=== PATIENT | female | born 1985 | race Caucasian/White ===

== ENCOUNTER 2024-06-07 22:47 | Outpatient (REF) | payer MEDICAID, SELFPAY ==
[2024-06-07 21:42] LABS: Hemoglobin A1C 5.3 % (<5.7)
[2024-06-07 21:53] LABS: ALT 27 U/L (14-59); AST 17 U/L (15-37); Albumin 3.9 g/dL (3.4-5.0); Alkaline Phosphatase 93 U/L (46-116); Anion Gap 12.6 mmol/L (3-11); BUN 9 mg/dL (7-18); Bilirubin, Total 0.57 mg/dL (0.2-1.0); CO2 23.4 mmol/L (21.0-32.0); CREATININE 0.9 mg/dL (0.55-1.02); Calcium 9.3 mg/dL (8.5-10.1); Calculated LDL 155 mg/dL (<100); Chloride 104 mmol/L (98-107); Cholesterol 227 mg/dL (<200); Glucose 82 mg/dL (74-106); HDL Cholesterol 43 mg/dL (40-60); Potassium 3.7 mmol/L (3.5-5.1); Sodium 140 mmol/L (136-145); Total Protein 7.3 g/dL (6.4-8.2); Triglyceride 146 mg/dL (<150)
--- OUTSIDE RECORDS SUMMARY | 2024-06-07 22:49 | XMS_ITS | Encounter Summary ---
Author [place] [address] Care Team Providers Care Community Organization Director Name Role Phone None Primary Care Provider Unavailabl e Encounter Details Date Type Department Care Team (Late st Contact Info) Description 07/16/2011 Orders Only Radiology and Cardiology Results [address] [place] [id number] Apd Conversion, Results Provider, Social History Tobacco Use Types Packs/Day Years Used Date Smoking Tobacco: Never Assessed Sex and Gender Information Value Date Recorded Sex Assigned at Not on file Gender Identity Not on file Sexual Orientation Not on file documented as of this encounter Plan of Treatment Not on file documented as of this encounter Procedures Procedure Name Priority Date/Time Associated Diagnosis Comments HEMOGLOBIN A1C Routine 07/16/2011 1:49 PM EDT documented in this encounter Results * (ABNORMAL) Hemoglobin A1c (07/16/2011 1:49 PM EDT) Hemoglobin A1c 4.9([facility]) 4.5 - 5.7 % TANESHA CONKLIN DAY CONVERSION Hemoglobin 18.1(Exter nal Lab) g/dL TANESHA CONKLIN DAY CONVERSION 07/16/2011 1:49 PM EDT Results Provider Apd Conversion MD ADALID CAMARGO ORDERABLES TANESHA CONKLIN DAY CONVERSION documented in this encounter Visit Diagnoses Not on filedocumented in this encounter Care Teams Community Organization Director Relationship Specialty Start Date End Date None None PCP - General 02/02/18 10/11/19 documented as of this encounter
--- OUTSIDE RECORDS SUMMARY | 2024-06-07 22:49 | XMS_ITS | Encounter Summary ---
[facility] [place] [address] Care Team Providers Care Claims Counsel Name Role Phone Oscar Garduno MD Primary Care Provider [phone] Reason for Visit * Reason Comments Laboring * Auth/Cert Specialty Diagnoses / Procedures Referred By Contac t Referred To Contact Diagnoses Encounter for trial of labor Procedures EMERGENCY IPI Referral ID Status Reason Start Date Expiration Date Visits Re quested Visits Authorized [id number] 1 1 Encounter Details Date Type Department Care Team (Late st Contact Info) Description 08/27/2018 [place] [id number] Katlyn Jose MD [facility] OBSTETRICS & [place] [address] Not Performed @ DELIVERY (WRVU 16.13) Social History Tobacco Use Types Packs/Day Years Used Date Smoking Tobacco: Former Cigarettes 0.5 5 2 007 - 2011 Smokeless Tobacco: Never Alcohol Use Standard Drinks/Week Comments No 0 (1 standard drink = 0.6 oz pur e alcohol) Sex and Gender Information Value Date Recorded Sex Assigned at Not on file Gender Identity Not on file Sexual Orientation Not on file documented as of this encounter Last Filed Vital Signs Vital Sign Reading Time Taken Comments Blood Pressure 123/68 08/29/2018 8:49 AM EST Pulse 79 08/29/2018 8:49 AM EST Temperature 36.9 ??C (98.4 ??F) 08/29/2018 8:48 AM ES T Respiratory Rate 18 08/28/2018 7:28 PM EST Oxygen Saturation 98% 08/29/2018 8:48 AM EST Inhaled Oxygen Concentration - - Weight 109.3 kg (241 lb) 08/27/2018 4:23 AM EDT Height 161.3 cm (5' 3.5) 08/27/2018 4:23 AM EDT Body Mass Index 42.02 08/27/2018 4:23 AM EDT documented in this encounter Discharge Summaries * Rosemarie Chopra MD - 08/29/2018 7:23 AM EST Discharge Summary Patient Name: Emily CavanaughvonnieKarime Patient Age: 32 y.o. Language: Italian Race: White Ethnicity: Not nor Admit date: 08/27/2018 Discharge date and time: 08/29/2018 Attending Physician: Jacob Quintero MD Discharge Physician: Shasha Davenport MD Care Provider: [facility]: Thierry Goncalves Referring Hospital: N/A Follow-up Recommendations for Providers: Interval Tubal request- needs pre-op appointment placed and request for tubal operation 6 weeks PP Inpatient Provider Contact Information: [facility] TECH Department, Discharge Diagnoses (Hospital Problems) and Secondary Diagnoses (Chronic Problems) Active Hospital Problems Diagnosis ??? Encounter for trial of labor Resolved Hospital Problems No resolved problems to display. Active Non-Hospital Problems Diagnosis ??? Positive GBS test ? Desires tubal ligation ??? Weight loss in ??? H/O section complicating ??? Morbid obesity with BMI of 40.0-44.9, adult ??? Encounter for supervision of normal in third trimester ??? Chronic pelvic pain in female Operations/Major Procedures: Spontaneous Vaginal Delivery on 08/27 Indication for Admission: Spontaneous onset of labor Admission History Emily states that she has had contractions every 3 minutes regularly all day today. She states that she started having contractions about two days ago and was seen in triage on 08/25 for rule out SROM. She had elevated Bps on 08/25 and had PIH labs drawn, all of which were normal. Her contractions decreased and she was discharged. Today, she notes no vaginal bleeding, no LOF, and endorses normal movements. She does note increased rectal pressure. ?? Her has been complicated by: ?? TOLAC, history of section X2: 1st for Failure to progress during IOL, got to 1 cm before decelerations were present. Second CS for adhesion on right aspect of uterus, planned CS. She underwent counseling and signed consent. ?? 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 History of Ectopic with ?? Morbid Obesity, Body mass index is 42.02 kg/m??. ?? Requests Tubal Consent- Medicaid consent signed, would like tubal if CS ?? GBS status: Positive, hives with PCN/Augmentin as a child, no sensitivities performed. ? Hospital Course Including Delivery and Events Emily BowiejyothivonnieVidyahi is a 32 y.o. year old woman at 40w2d weeks gestational age who presented in spontaneous labor with nothing for analgesia. Her is complicated by TOLAC with2 previous LTCS, one for failure to progress with intolerance of labor and the second for elective reasons, pelvic adhesions, history of ectopic with removal of one tube, GBS positive, morbid obesity. ?? She was found to be complete at 0648 with the presenting part at +2 station. She pushed for 7 minutes and spontaneously delivered at 0655 hrs. The 's head was delivered in a controlled fashion.There was no nuchal cord. The body was delivered without incident over an intact perineum. A viablemale infant was placed on maternal abdomen and had APGARS of 7 and 8 at 1 and 5 minutes with measurements still pending. The cord was clamped in 2 places and transected. Cord blood was taken. The fundus became firm with massage and pitocin. The placenta delivered spontaneously after 7 minutes and it was a 3-vessel cord. Inspection of the vagina and perineum revealed a bilateral labial lacerations, with repair of right laceration with 4-0 vicryl. Left labial laceration was superficial and hemostatic. A second degree right vaginal laceration which was repaired with 3-0 vicryl suture. Her course was uneventful. By the time of discharge on post day number 2, her pain was well controlled with oral pain medications, she was tolerating a regular diet, ambulating, andvoiding without difficulty. Her fundal exam was as expected and her lochia was within normal limits. She is establishing and will be followed up in the clinic in 4-5 weeks for her /pre-operative visit, and 6 weeks for her tubal ligation. She is planning on using bilateral tubal ligation for contraception. Delivery Information Information for the patient's : Lesa, Carissa shell [[id number]] INFORMATION Carissa Mcfadden 08/27/2018 6:55 AM by Vaginal, Spontaneous Delivery Sex: male Gestational Age: 40w2d Measurements: Weight: 6 lb 8.6 oz (2965 g) APGARS One Minute Five Minutes Ten Minutes Totals: 7 8 EBL: 400 Vital signs at Discharge: BP: 121/79, Heart Rate: 73, Temp: 37 ??C (98.6 ??F), Resp: 18, BMI (Calculated): 42.02 Height: 161.3 cm (5' 3.5) (08/27/18422) Weight: 109.3 kg (241 lb) (08/27/18422) Functional and Cognitive status: intact Important Studies and Lab Data: Labs: Last wbc, hgb, hct plt Recent Labs 08/27/18 0500 WBC 20.8* HGB 12.3 HCT 36.3 Recent Results (from the past 72 hour(s)) Hemogram Result Value Ref Range WBC 20.8 (H) 4.0 - 9.5 x10(3)/mcL RBC 4.89 4.00 - 5.21 x10(6)/mcL Hemoglobin 12.3 11.7 - 15.5 gm/dL Hematocrit 36.3 35.7 - 45.8 % MCV 74.2 (L) 82.6 - 94.4 fL MCH 25.2 (L) 27.1 - 32.0 pg MCHC 33.9 31.7 - 35.0 gm/dL Platelets 305 145 - 357 x10(3)/mcL RDWSD 38.3 37.0 - 46.0 fL RDWCV 14.5 (H) 11.5 - 14.1 % MPV 8.5 7.6 - 12.9 fL nRBC % Auto 0.0 % nRBC Abs Auto 0.000 0.000 - 0.000 x10(3)/mcL Differential, Automated Result Value Ref Range Neutrophils % 85.4 % Neutr Abs (ANC) 17.77 (H) 1.70 - 6.10 x10(3)/mcL Lymphocytes % 10.3 % Lymphocytes Abs 2.1 0.9 - 3.2 x10(3)/mcL Monocytes % 3.1 % Monocyte Abs 0.6 0.3 - 0.9 x10(3)/mcL Eosinophils % 0.0 % Eosinophils Abs 0.0 0.0 - 0.4 x10(3)/mcL Basophils % 0.3 % Basophils Abs 0.1 0.0 - 0.1 x10(3)/mcL Immature Gran % 0.90 % Arianne Gran Abs 0.19 (H) 0.00 - 0.04 x10(3)/mcL Studies: none Pending Studies and Lab Data: - placental pathology Discharge Conditions/Prognosis: good Discharge to: Home Contraceptive Plans: bilateral tubal ligation Allergies at Discharge: Allergies Allergen Reactions ??? Augmentin [Amoxicillin-Pot Clavulanate] Hives As a 4 year old Immunizations Given this Hospitalization: Immunization History Administered Date(s) Administered ??? Influenza Vaccine PF, Quadrivalent 07/25/2018 ??? Tdap Vaccine 06/30/2018 Discharge Medications: Your Medications New Medications Dose Details docusate sodium 50 mg Cap Commonly known as: COLACE Take 1 capsule by mouth 2 times daily as needed for Constipation. 50 mg Quantity: 10 capsule Refills: 0 ibuprofen 200 mg Tab Commonly known as: ADVIL;MOTRIN Take 3 tablets by mouth every 6 hours as needed for Pain. 600 mg Quantity: 30 tablet Refills: 0 polyethylene glycol 17 gram Pwpk Commonly known as: MIRALAX Take 17 g by mouth daily as needed. 17 g Quantity: 14 each Refills: 0 Continued medications, unchanged Dose Details acetaminophen 325 mg Tab Commonly known as: TYLENOL Take 650 mg by mouth every 4 hours as needed. 650 mg Refills: 0 calcium-vitamin D3 600 mg calcium- 400 unit Tab Take 1 tablet by mouth daily. 1 tablet Quantity: 90 tablet Refills: 3 CALTRATE 600 ORAL Take 1 tablet by mouth daily. 1 tablet Refills: 0 vitamin with [id number]-Er-Dipd-FA Tab Commonly known as: VITAMIN Take 1 tablet by mouth daily. 1 tablet Quantity: 90 tablet Refills: 3 Smoking Status at Discharge: Social History Tobacco Use Smoking Status Former Smoker ??? Packs/day: 0.50 ??? Years: 5.00 ??? Pack years: 2.50 ??? Last attempt to quit: 2011 ??? Years since quittin.8 Smokeless Tobacco Never Used Instructions Given to Patient at Discharge: Patient Instructions Patient Instructions Follow-up: Six weeks care provider. If you were seen at [facility] you will be contacted to set up an appointment Activity: Nothing in vagina until bleeding stops Do not lift more than 15 pounds No driving for two weeks if you are taking narcotic medication. Please call your OB provider for the following: Fever more than 100.5 degrees Heavy bleeding that saturates a pad an hour Increased abdominal pain, nausea , shaking chills Increased pain in the area of stitches outside your vagina. Hot, hard, tender areas on the breast and feeling generally unwell. Depression Contact Numbers: If you see an commissary superintendent call: [phone] 9 am - 5 pm, after 5 pm If you see a stationary fireman call: [phone] all hours If you see a family practitioner call: [phone] all hours If you were transferred to our institution for delivery and cannot reach your local OB provider, call the commissary superintendent numbers. Pain Control: Alternate 625 mg tylenol and 600 mg ibuprofen every 3 hours for pain control. General Instructions None Future Appointments and Orders Future Appointments and Orders Future Appointments Provider Department Dept Phone 08/29/2018 1:20 PM Zaynab Arndt CNM Obstetrics and Gynecology at [place] Arrive at: [facility] [phone] Future Orders Complete By Expires LAPAROSCOPY W\FULGURATION OF FALLOPIAN TUBES [[id number] Custom] As directed Process Instructions: Scheduling Instructions: This order is to be used for Surgeries and Procedures being performed at [facility] Main OR, OSC,CSI, Endoscopy, [facility] or [facility], the [facility], [facility] and [facility] only. For Surgeries and Procedures being performed at other locations and non- Surgical facilities, please use an order with an ID# that begins with EXT. Questions: Pre-procedure Diagnosis: Desires sterilization Case Classification: G = Elective Post-op Location: Home Surgeon requested Anesthesia Type for surgery: General Surgeon requested regional for postop pain control: Pre-admission testing needed?: Special Needs? (Comments box above, or paper, for details): Clinical Trial?: Special Anesthesia intubation requests: Discharge References/Attachments None Click refresh button immediately prior to signing DCS to ensure all mills are updated. documented in this encounter Discharge Instructions * Discharge Instructions* Fatimah Guillen RN - 08/29/2018 10:39 AM EST Images from the original note were not included. Nurse Inpatient Note - Vaginal Delivery Follow-ups: ? will be scheduled with your primary OB provider ? please call to schedule with your primary OB provider Maternal Discharge Instructions Rest: Although it may seem impossible to get enough rest, simple planning will help. Plan to rest, and/or sleep when your baby does. Limiting visitors also helps. Other family members can help by doing housework, caring for other children and/or helping limit visitors. Activity: Exercise can be gradually increased following your delivery, depending on the doctor???s recommendation. It is recommended that you do not swim until the vaginal bleeding stops or perform any heavy lifting for six weeks. ???Aim to stay active for 20-30 minutes a day. When you first start exercising after childbirth, try simple exercises that help strengthen major muscle groups, including abdominal and backmuscles. Gradually add moderate- intensity exercise. Remember, even 10 minutes of exercise benefits your body. If you exercised vigorously before or you are a brine plant operator, you can work up to vigorous-intensity activity. Stop exercising if you feel pain.?? https://www.[facility].org/Patients/FAQs/Bemldbvz-Qmvug-Fxlhemgxw?IsMobileSet=false#ho w Nutrition: Your diet following the of your baby is as important as it was before the baby wasborn. Drinking a minimum of 6-8 glasses of water a day will help keep you hydrated. Continue takingyour vitamins until you are no longer . Do not attempt to lose weight during the first six weeks. Sweating. Hormonal changes following delivery frequently cause night sweats which are normal over the next 6 weeks. Sleeping on towels and using a fan may make you more comfortable. Lochia: (Flow) Your flow should be no heavier than a normal period. It will be bright red and then transition to pink, brown, yellow, and finally colorless. This may last a few weeks. If your vaginalbleeding becomes bright red again, decrease your activity. We recommend pelvic rest until your bleeding and spotting stops and your episiotomy or vaginal tearhas healed. This may take up to six weeks. Pelvic rest includes activities such as douching, use oftampons/menstrual cups or sexual intercourse. Perineum: For about a week continue to rinse yourself with warm water when you use the toilet. A sitz bath with Epsom salt taken 2 times a day and use of witch meghan may help relieve soreness. Kegel exercise, done regularly throughout the day, will help tighten the perineal muscles and speed recovery. If you received any stitches, these will dissolve on their own and do not need to be removed. If you had a 3rd degree or 4th degree vaginal laceration continue taking stool softeners as recommended by the doctor. Urinary leakage which continues and/or loss of bowel control should be mentioned to your care provider team. Breast Care for Formula feeding mothers: Wear a well-fitting bra to support your breasts. Ice packsto your breasts (10 minutes at a time) as well as alternating Tylenol and Ibuprofen may be used to relieve discomfort from engorgement. Avoid stimulating your breasts: Do not let warm water from the shower fall directly on your breast;do not express any colostrum; avoid holding your baby near your breasts until your milk begins to decrease and engorgement is relieved. Breast Care for mothers: Practice careful positioning and frequent feeding as demonstrated in the hospital. The printed information in your packet covers this in detail. For More Information: https://www.[facility].org/Patients or refer to [employer]???s Your and Childbirth: Month to Month book which you may have received from the OB Clinic. Call your doctor or stationary fireman for: ??? Seizure (call 911) ??? Headache which isn???t relieved with Tylenol ??? Headache with visual changes ??? Pain in your chest ??? Shortness of breath ??? Pain in upper right abdomen ??? Fever more than 100.4 ??? Breast with hot, hard, tender areas on the breast plus flu-like symptom ??? Increased abdominal pain, nausea, shaking chills ??? Increased redness or soreness over your incision/ incision isn???t healing ??? Increased pain in the area of stitches outside your vagina ??? Heavy bleeding that saturates a pad an hour ??? Clots larger than an egg ??? Red or swollen leg which is painful or warm to the touch ??? depression occurs in a large percentage of women. We encourage you to contact your provider or a member of the nursing staff if you are feeling so overwhelmed that you are unable to care for yourself or your baby. Keep your follow up appointment. You may call the [facility] at any time for guidance or for answers to questions that come up prior to you follow up appointment. Your [facility] Provider can be reached during office hours at ??? Midwives ??? Obstetricians ??? Services AFTER OFFICE HOURS for the commissary superintendent or stationary fireman lead consultant Provider electronic signature confirms that discharge instructions were reviewed with the patient. A copy was printed and given to the patient. * Patient Instructions* Rosemarie Chopra MD - 08/29/2018 7:08 AM EST Patient Instructions Follow-up: Six weeks care provider. If you were seen at [facility] you will be contacted to set up an appointment Activity: Nothing in vagina until bleeding stops Do not lift more than 15 pounds No driving for two weeks if you are taking narcotic medication. Please call your OB provider for the following: Fever more than 100.5 degrees Heavy bleeding that saturates a pad an hour Increased abdominal pain, nausea , shaking chills Increased pain in the area of stitches outside your vagina. Hot, hard, tender areas on the breast and feeling generally unwell. Depression Contact Numbers: If you see an commissary superintendent call: [phone] 9 am - 5 pm, after 5 pm If you see a stationary fireman call: [phone] all hours If you see a family practitioner call: [phone] all hours If you were transferred to our institution for delivery and cannot reach your local OB provider, call the commissary superintendent numbers. Pain Control: Alternate 625 mg tylenol and 600 mg ibuprofen every 3 hours for pain control. documented in this encounter Medications at Time of Discharge Medication Sig Dispensed Refills Start Date End Date ibuprofen (ADVIL;MOTRIN) 200 mg Tablet Take 3 tablets by mouth every 6 hours as needed for Pain. 30 tablet 08/29/2018 acetaminophen (TYLENOL) 325 mg tablet Take 650 mg by mouth every 4 hours as needed. docusate sodium (COLACE) 50 mg Capsule Take 1 capsule by mouth 2 times daily as needed for Constipation. 10 capsule 08/29/2018 05/12/2021 polyethylene glycol (MIRALAX) 17 gram Powder in Packet Take 17 g by mouth daily as needed. 14 each 08/29/2018 05/12/2021 vitamin with rsasrsbh-Yo-Kbtq-FA ( VITAMIN) TabletIndications:Encou nter for supervision of other normal in second trimester Take 1 tablet by mouth daily. 90 tablet 3 03/25/2018 05/12/2021 calcium-vitamin D3 600 mg calcium- 400 unit TabletIndications:Encou nter for supervision of other normal in second trimester Take 1 tablet by mouth daily. 90 tablet 3 03/25/2018 05/12/2021 CALCIUM CARBONATE (CALTRATE 600 ORAL) Take 1 tablet by mouth daily. 05/12/2021 documented as of this encounter Progress Notes * Rosemarie Chopra MD - 08/29/2018 6:39 AM EST Vaginal Delivery Note Patient ID: Ms. Emily Mcfadden is a 32 y.o. year old day #2 after at 40w2d weeks gestation, complicated by vaginal and labial lacerations. complicated by TOLAC s/p 2 previous LTCS, history of ectopic with R tube removal, GBS positive, morbid obesity. EBL 400 FW: 2965 g S: She is doing well . Pain is well controlled on current pain medication regimen. for nutrition without difficulty. Ambulating, voiding spontaneously, and tolerating aregular diet +flatus, no BM. She complains of fatigue but is otherwise without complaint, and is interested in going home today. No other issues. O: Last value Range last 24 hrs Temperature Temp: 37 ??C (98.6 ??F) Temp: [36.9 ??C (98.4 ??F)-37 ??C (98.6 ??F)] Heart Rate Heart Rate: 73 Heart Rate: [73-82] Blood Pressure BP: 121/79 BP: (121-127)/(74-79) Respiratory Rate Resp: 18 Resp: [16-18] SpO2 SpO2: 99 % SpO2: [99 %] No intake or output data in the 24 hours ending 08/29/18 0640 Exam: Gen: appropriate young woman lying in bed her in no acute distress. Cardiac: RRR, S1, S2, no rub/gallop/murmur. Pulmonary: CTAB, no rales, wheeze/rhonchi. Abdomen: Soft, symmetric, nontender, +BS Uterus: firm, 1 cm below umbilicus, nontender : minimal red lochia. Extremities: nontender, no edema. Labs: Recent Labs 08/27/18 0500 08/25/18 1141 WBC 20.8* 17.4* HGB 12.3 12.1 HCT 36.3 36.3 PLATELET 305 282 Recent Labs 08/25/18 1141 CREATININE 0.69* Assessment: She is doing well without complaint. Discussed contraceptive options in depth; she would like interval tubal at 6 weeks PP. Otherwise no issues; anticipate discharge today. Other Medical Issues/Concerns: none Plan: ?? Continue routine care. ?? Interval tubal for contraception ?? for nutrition without concerns ?? Follow-up: 6 weeks PP with tubal This patient was seen and discussed on rounds. Rsoemarie Chopra MD PGY1 08/29/2018 Associated attestation - Shasha Davenport MD - 08/29/2018 9:59 AM EST Attending Note S: I saw Emily Mcfadden on rounds and agree with Dr. Chopra's note above.?? The patient feels well. She is ambulating and urinating without difficulty. She denies CP, SOB, leg pain. Her bleeding is moderate/normal. is going well. O: BP 123/68 Pulse 79 Temp 36.9 ??C (98.4 ??F) (Oral) Resp 18 Ht 161.3 cm (5' 3.5) Wt 109.3kg (241 lb) LMP 11/18/2017 SpO2 98% ? Unknown BMI 42.02 kg/m?? NAD Labs: Lab Results Component Value Date WBC 20.8 (H) 08/27/2018 HGB 12.3 08/27/2018 HCT 36.3 08/27/2018 MCV 74.2 (L) 08/27/2018 PLATELET 305 08/27/2018 Impression:??32 y.o. day 2 s/p successful .?? Doing well. Plan:??Continue care. Anticipate discharge today. She plan to have an interval tubal ligation, discussed the procedure, reviewed removing remaining tube vs ligating. She will discuss w/ her provider at the 6 wk PP visit. Shasha Davenport MD * Kristin Vela MD - 08/28/2018 7:50 AM EST Vaginal Delivery Note Patient ID: Ms. Emily Mcfadden is a 32 y.o. year old day #1 after at 40w2d weeks gestation, complicated by vaginal and labial lacerations. complicated by TOLAC s/p 2 previous LTCS, history of ectopic with R tube removal, GBS positive, morbid obesity. EBL 400 FW: 2965 g S: She is doing well . Pain is well controlled on current pain medication regimen. for infant nutrition without difficulty. Ambulating, voiding spontaneously, and tolerating aregular diet +flatus, no BM. She complains of fatigue but is otherwise without complaint. No other issues. O: Last value Range last 24 hrs Temperature Temp: 36.4 ??C (97.5 ??F) Temp: [36.4 ??C (97.5 ??F)-37.1 ??C (98.8 ??F)] Heart Rate Heart Rate: 87 Heart Rate: [64-94] Blood Pressure BP: 116/70 BP: (112-124)/(70-88) Respiratory Rate Resp: 18 Resp: [18] SpO2 SpO2: 90 % SpO2: [90 %] Intake/Output Summary (Last 24 hours) at 08/28/2018 0750 Last data filed at 08/27/2018 1036 Gross per 24 hour Intake 710 ml Output 400 ml Net 310 ml Exam: Gen: appropriate young woman lying in bed in no acute distress. Cardiac: RRR, S1, S2, no rub/gallop/murmur. Pulmonary: CTAB, no rales, wheeze/rhonchi. Abdomen: Soft, symmetric, nontender, +BS Uterus: firm, 1 cm below umbilicus, nontender : minimal red lochia. Extremities: nontender, no edema. Labs: Recent Labs 08/27/18 0500 08/25/18 1141 WBC 20.8* 17.4* HGB 12.3 12.1 HCT 36.3 36.3 PLATELET 305 282 Recent Labs 08/25/18 1141 CREATININE 0.69* Assessment: She is doing well without complaint. Discussed contraceptive options in depth; she would like interval tubal at 6 weeks PP. Otherwise no issues; anticipate discharge on PPD #2. Other Medical Issues/Concerns: none Plan: ?? Continue routine care. ?? Interval tubal for contraception ?? for nutrition without concerns ?? Follow-up: 6 weeks PP with tubal This patient was seen and discussed on rounds. Kristin Vela MD PGY1 08/28/2018 Associated attestation - Sabina Danielle MD - 08/28/2018 1:18 PM EST Attending Note S: I saw Emily Mcfadden on rounds and agree with Dr. Vela's note above.?? The patient feels well. Ambulating, voiding, kadi gen diet. Denies SOB/CP, N/V, F/C. O: BP 127/74 Pulse 82 Temp 36.9 ??C (98.4 ??F) Resp 16 Ht 161.3 cm (5' 3.5) Wt 109.3 kg (241 lb) LMP 11/18/2017 SpO2 90% ? Unknown BMI 42.02 kg/m?? NAD Abd soft, nontender Fundus firm and below the umbilicus Trace bilat LE edema without erythema Labs: Lab Results Component Value Date WBC 20.8 (H) 08/27/2018 RBC 4.89 08/27/2018 HGB 12.3 08/27/2018 HCT 36.3 08/27/2018 MCV 74.2 (L) 08/27/2018 MCH 25.2 (L) 08/27/2018 MCHC 33.9 08/27/2018 PLATELET 305 08/27/2018 RDWCV 14.5 (H) 08/27/2018 Impression:??32 y.o. day #1 s/p successful after 2 prior LTCS's.?? Doing very well. Plan:??Continue care. Anticipate discharge tomorrow. Plans interval tubal ligation. Sabina Danielle MD * Monica Mancilla, RN - 08/27/2018 9:29 AM EDT 0915- assisted to ambulate to BR and tolerated. Unable to void. BS- 52ml. Patient encouraged to increase fluids. Will try to void in an hour. documented in this encounter H&P Notes * Kristin Vela MD - 08/27/2018 5:00 AM EDT Obstetrical Term Admission Note Patient ID: Emily Mcfadden is a 32 y.o. at 40w2d dated by LMP, who is being admitted for labor management. HPI: Emily states that she has had contractions every 3 minutes regularly all day today. She states that she started having contractions about two days ago and was seen in triage on 08/25 for rule out SROM. She had elevated Bps on 08/25 and had PIH labs drawn, all of which were normal. Her contractions decreased and she was discharged. Today, she notes no vaginal bleeding, no LOF, and endorses normal movements. She does note increased rectal pressure. Her has been complicated by: ?? TOLAC, history of section X2: 1st for Failure to progress during IOL, got to 1 cm before decelerations were present. Second CS for adhesion on right aspect of uterus, planned CS. She underwent counseling and signed consent. ?? 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 History of Ectopic with ?? Morbid Obesity, Body mass index is 42.02 kg/m??. ?? Requests Tubal Consent- Medicaid consent signed, would like tubal if CS ?? GBS status: Positive, hives with PCN/Augmentin as a child, no sensitivities performed. Review of Systems- Negative to complete review except as noted in the HPI. Obstetric Review of Systems Total Weight Gain this 16.3 kg (36 lb) Movement: normal Contractions: regular, every 3-4 minutes Leaking: None Bleeding: none now Preeclampsia signs and symptoms: None History: Patient Active Problem List Diagnosis Code ??? Chronic pelvic pain in female R10.2, G89.29 ??? H/O section complicating O34.219 ??? Morbid obesity with BMI of 40.0-44.9, adult E66.01, Z68.41 ??? Encounter for supervision of normal in third trimester Z34.93 ??? Desires tubal ligation Z98.51 ??? Weight loss in R63.4 ??? Z34.90 ??? Positive GBS test B95.1 ??? Encounter for trial of labor O33.9 No past medical history on file. Past Surgical History: Procedure Laterality Date ??? SECTION, LOW TRANSVERSE 2007 ??? SECTION, LOW TRANSVERSE 2011 ??? ECTOPIC SURGERY rigfht salpingectomy OB History Para Term AB Living 4 2 2 1 2 SAB TAB Ectopic Multiple Live Births 1 2 Family History Problem Relation Age of Onset ??? Other Nephew Degos disease Allergies Allergen Reactions ??? Augmentin [Amoxicillin-Pot Clavulanate] Hives As a 4 year old Social History Socioeconomic History ??? Marital status: Spouse name: Not on file ??? Number of children: Not on file ??? Years of education: Not on file ??? Highest education level: Not on file Social Needs ??? Financial resource strain: Not on file ??? Food insecurity - worry: Not on file ??? Food insecurity - inability: Not on file ??? Transportation needs - medical: Not on file ??? Transportation needs - non-medical: Not on file Occupational History ??? Not on file Tobacco Use ??? Smoking status: Former Smoker Packs/day: 0.50 Years: 5.00 Pack years: 2.50 Last attempt to quit: 2012 Years since quittin.8 ??? Smokeless tobacco: Never Used Substance and Sexual Activity ??? Alcohol use: No ??? Drug use: No ??? Sexual activity: Yes Partners: Male Other Topics Concern ??? Not on file Social History Narrative ??? Not on file Immunization History Administered Date(s) Administered ??? Influenza Vaccine PF, Quadrivalent 07/25/2018 ??? Tdap Vaccine 06/30/2018 Physical Exam: Most Recent Vitals: 08/27/18 0552 BP: Pulse: Resp: Temp: 36.5 ??C (97.7 ??F) Gen: AAO Cardio: nl rhythm, S1, S2, no M/C/R/G Pulm: CTA BL, no W/C/R Abd: +BS, soft, NT, ND, gravid, cephalic by Le[place] Ext: warm, well-perfused, no PRATIK or calf tenderness Uterine Size: S=D Clinical EFW: 7 lbs by Le[place]olds Sterile Speculum:deferred Cervix Exam: Cervical Exam: Dilation: 9 (08/27/18 0630) Effacement: 80 Station: +1 Cervical Position: Anterior Consistency: Soft Otto Score: 12 Pelvis: average Presentations: Cephalic Heart Rate Interpretation: Baseline: 135, Variability: moderate, Accels: yes, Decels: none, Dash Point: q2-4 Category: I Labs: Lab Results Component Value Date WBC 20.8 (H) 08/27/2018 RBC 4.89 08/27/2018 HGB 12.3 08/27/2018 HCT 36.3 08/27/2018 MCV 74.2 (L) 08/27/2018 MCH 25.2 (L) 08/27/2018 MCHC 33.9 08/27/2018 PLATELET 305 08/27/2018 RDWCV 14.5 (H) 08/27/2018 @AST@ Lab Results Component Value Date CREATININE 0.69 (L) 08/25/2018 GBS Lab Results Component Value Date GBSSCREEN Pos 07/25/2018 Most Recent Growth Ultrasound Date: 08/10 GA at US: 37+6 EFW: 2998 g Growth appropriate for gestational age Amniotic fluid volumenormal Placenta anterior Presentation cephalic Assessment & Plan Emily Mcfadden is a 32 y.o. at 40w2d dated by LMP being admitted for labor management. ?? Labor State: Active phase labor. ?? Heart Rate Assessment: Category 1 ?? Labor management: Continue present management. and Expectant management. Patient SROM at ?? GBS Management: Cephazolin: penicillin allergic WITHOUT a history of anaphylaxis, respiratory distress, urticaria, or angioedema. ?? Anesthesia was informed of patient's admission in setting of TOLAC. No epidural or pain control requested by patient at this time. Additional Issues ?? PP Contraception Plan: She is firm in her desire for permanent sterilization. We discussed the surgical approach, risks, benefits, and alternatives to tubal ligation. Risks of surgery include riskof regret, risk of failure 1/200-1/300 over 10 years, risk of ectopic which is a medical emergency. I explained that tubal ligation is permanent, cannot be reversed, and reversible methods,such as the IUD, are about as effective as tubal ligation. After this discussion, patient wishes toproceed with the above procedure. All of her questions were answered, and she signed informed consent for the procedure. Her Medicaid paperwork is signed and would like a tubal only if she has a CS. ?? C/S consent: Reviewed consent with the patient. Discussed risks such as maternal: bleeding, infection, need for blood transfusion, damage to nearby organs such as bladder; bowel; and ureters. Alsodiscussed rare risks such as damage to the baby or maternal hysterectomy. Discussed benefits and alt ernatives. Patient had time to ask questions which were answered. Patient signed consent and it wasplaced in the chart. ?? Acute Opioid therapy use consent: Not signed. This patient was seen and discussed with Dr. Quintero, Attending CT TECH. Kristin Vela MD PGY-1 06/16/2018 Associated attestation - Jacob Quintero MD - 09/07/2018 10:49 PM EST I have seen and evaluated the patient and reviewed the above history with Dr. Vela. I agree with the details as written. The assessment and plan were formulated in discussion with me and I agree with them as documented. I saw patient at time of admission and performed history and exam at that time. 32 year old presents in active labor. Patient is desiring TOLAC and prior cs op note reviewed. We again confirmed her desire for TOLAC. We discussed indications for cs during labor and we also reviewed that performing cs would likely take longer in setting of known adhesions. We discussed observation for labor progress. Patient does not want regional anesthesia if possible. Anesthesia was notified of patient's admission given her two previous cs. JACOB QUINTERO MD documented in this encounter Miscellaneous Notes * Initial Assessments - Kristen Marr RN - 08/29/2018 9:53 AM EST Office of Care Management [facility] O: Reviewed medical record. Discussed with pediatric care team - Dr. Mcclain. A: Support systems are in place. Nutrition: -Breast Pump Plan - mother has a hand pump and does not want an electric breast pump. Primary Insurance: MEDICAID [place] Secondary Insurance: N/A Car Seat: Has car seat. Transportation: Has appropriate transportation for discharge. No psychosocial or discharge needs identified at this time. P: Home with . Application Developer/Medical Stenographer remains available as needed for coordination of care, psychosocial support and discharge planning. Kristen Marr RN Pager [phone] Extension [phone] * Note - Ernestine Multani RN - 08/29/2018 9:45 AM EST This note was copied from a baby's chart. ASSESSMENT INPATIENT Encounter Date/Time: 08/29/2018 / 09:20 Baby's name: Baby sumaya Mcfadden : 08/27/2019 Time of : 6:55 AM Mode of Delivery: Vaginal, Spontaneous Delivery Gestational Age: Gestational Age: 40w2d Baby age: 2 days Birthweight: 6 lb 8.6 oz (2965 g) Weights since : Patient Vitals for the past 168 hrs: Weight 08/29/18 0434 2.735 kg (6 lb 0.5 oz) 08/28/18 0009 2.845 kg (6 lb 4.4 oz) 08/27/18 0655 2.965 kg (6 lb 8.6 oz) Overall weight loss: -8% MATERNAL INFO: Emily Mcfadden [id number] 1985 G 4 P 3 Significant History: Previous experience: Yes--BF her previous Breast Surgery: No history Breast Changes During : Yes Breast Exam : Size: Large Shape: Round Venous Pattern: Within Normal Limits Milk Production: Colostral Phase Normal Nipple Exam : Everted Color: [place] Compressible: Yes Trauma: Emily denies nipple pain with latching baby Nipple Care Management: May apply her own expressed milk for comfort. May also use Motherlove ointment if prefers. OBSERVATION: INFANT ASSESSMENT: Oral Motor Examination/Function: Mouth: Normal Slightly small Jaw: Normal Lips: Normal Tongue: Normal resting position Palate: Not assessed, mom holding baby at breast Frenulum: Not assessed mom holding baby at breast Coordination of Infant Suck: Smooth/rhythmic Position: Right: Cradle hold, mom finishing up a feeding, baby self detached but did re-latch a fewmoments later, mom denies discomfort with latch. Offered to return for another feeding assessment as baby was finishing up a session but mom reportsshe feels comfortable nursing her son and did not feel she needed additional support at this time. Rooting: Normal Attachment: Adequate Swallow: Normal/Coordination Suck:Swallow Ratio: WNL for current colostrum supply Sucking Burst Pattern: Non Nutritive Nutritive: Mature WNL PATIENT EDUCATION AND RECOMMENDATIONS: Benefits of frequent maternal- Skin to Skin (STS) contact at early feeding cues every 2 - 3 hours, awaken as needed Optimal positioning: Mcow-pc-xbjgbo positioning Lfkm-cl-syugk technique Breast massage and manual expression techniques reviewed with mom Breast massage during , alternated with breast compression during pauses to keep baby engaged in feeding. Principles of baby-led feedings/finish first breast first/attempt to BF on both sides at each feed (assess interest/satiety cues) Ventral/Recumbent with infants self-attachment Strategies to manage physiological engorgement Written contact information for [facility] prn Pamphlets Provided Feeding Log Your Guide To --Why is Important Management of engorgement symptoms CDC recommendations for pump part cleaning and sterilization [facility] Card On-going Concerns: Weight loss about 8% Monitor growth and nutrition closely Discharge Planning: -Follow-up with infant's PCP after discharge -[facility]NA follow-up PRN -[facility] post-discharge, Mother will call if she desires further assistance is aware of outpatient phone and visit support available to her. -Local IBCLC support after discharge home, prn, parents are from [facility] support area -Feeding Plan: Breast feed on demand - anticipate baby will nurse 8-12 times in 24 hours. -Keep a Feeding Log the first few weeks: record times/duration, pumping volumes, any supplement given, and stools/wet diapers; this journal can be helpful to review with the careprovider, VNA or retirement consultant. -Report difficulty waking, poor nursing and/or irritability to your provider 15 minutes were spent with this family, providing assessment, assistance, education, and support. Mother voices understanding of education and recommendations. Ernestine Multani RN, IBCLC [facility] * Plan of Care - Nusrat Ocampo RN - 08/29/2018 7:06 AM EST Problem: Patient Care Overview Goal: Plan of Care Review Outcome: Ongoing (Interventions Implemented as Appropriate) 08/28/18 0443 08/28/181927 Plan of Care Review Progress progress toward functional goals as expected -- Coping/Psychosocial Plan Of Care Reviewed With -- patient;spouse OUTCOME EVALUATION NOTE: OUTCOME SUMMARY: VSS. Assessment as documented. Bonding well. independently. PLAN MOVING FORWARD: Anticipate discharge. INDIVIDUALIZED FALL PREVENTION INTERVENTIONS: Patient-specific fall risk factors per assessment: [current deficits]: none Assistance [level of assistance required for transfers and ambulation]: independent Supervision [direct monitoring required during toileting and ADLs]: none Surveillance [continuous indirect monitoring]: purposeful rounding Patient-specific fall prevention interventions for sensory deficits provided, if applicable: none CPG GOAL OUTCOME EVALUATION: Goal: Fall Prevention-Safe Patient Handling Outcome: Ongoing (Interventions Implemented as Appropriate) 08/28/1882308/28/181927 Daily Care Interventions Self-Care Promotion independence encouraged -- Mckenna Fall Risk History of Falling -- 0 Secondary Diagnosis -- 0 Ambulatory Aids -- 0 Intravenous Therapy/Heparin/Saline Lock -- 0 Gait/Transferring -- 0 Mental Status -- 0 Score -- 0 OTHER Mckenna Fall Risk -- Low Restraint Interventions Safety Promotion/Fall Prevention -- safety round/check completed;nonskid shoes/slippers when out ofbed Positioning Body Position -- independent Activity Activity Type -- up ad annabelle Activity Assistance Provided -- independent Assistive Device Utilized -- none Goal: Infection Control Outcome: Ongoing (Interventions Implemented as Appropriate) 08/28/181927 Coping Strategies Supportive Measures active listening utilized;decision-making supported;goal setting facilitated;positive reinforcement provided;problem solving facilitated;relaxation techniques promoted;self-care encouraged;self-reflection promoted;self-responsibility promoted;verbalization of feelings encouraged Safety Interventions Isolation Precautions standard precautions maintained Infection Prevention visitors restricted/screened;single patient room provided;rest/sleep promoted;environmental surveillance performed Goal: Discharge Needs Assessment Outcome: Ongoing (Interventions Implemented as Appropriate) 08/29/18 0654 Discharge Needs Assessment Concerns To Be Addressed no discharge needs identified Readmission Within The Last 30 Days no previous admission in last 30 days Provider Choice List(s) Given no Equipment Needed After Discharge none Discharge Disposition home or self-care Current Health Anticipated Changes Related to Illness none Activity/Self Care Review of Systems Equipment Currently Used at Home none Living Environment Transportation Available car;family or friend will provide Goal: Interdisciplinary Rounds/Family Conf Outcome: Ongoing (Interventions Implemented as Appropriate) 08/28/18 044 Interdisciplinary Rounds/Family Conf Participants family;nursing;patient;physician Problem: (Vaginal Delivery) (Adult) Goal: Signs and Symptoms of Listed Potential Problems Will be Absent, Minimized or Managed () Signs and symptoms of listed potential problems will be absent, minimized or managed by discharge/transition of care (reference (Vaginal Delivery) (Adult) CPG). Outcome: Ongoing (Interventions Implemented as Appropriate) 08/28/18 0824 08/29/18 0654 (Vaginal Delivery) Problems Assessed ( Vaginal Delivery) all -- Problems Present ( Vaginal Delivery) -- none Problem: (Pediatric,,NICU) Goal: Effective Patient will demonstrate the desired outcomes by discharge/transition of care. Outcome: Ongoing (Interventions Implemented as Appropriate) 08/28/18 1755 (Pediatric,[place],NICU) Effective making progress toward outcome * Plan of Care - Fatimah Guillen RN - 08/28/2018 6:03 PM EST Problem: Patient Care Overview Goal: Plan of Care Review Outcome: Ongoing (Interventions Implemented as Appropriate) 08/28/1844208/28/1824 Plan of Care Review Progress progress toward functional goals as expected -- Coping/Psychosocial Plan Of Care Reviewed With -- patient OUTCOME EVALUATION NOTE: OUTCOME SUMMARY: VSS, afebrile. Bleeding WNL, FF, Pt caring for self and baby on own, without difficulty. Voiding without difficulty. Pain well controlled with PO meds. Denies RUSH, visual changes or epigastric pain. See flow sheet for more info. PLAN MOVING FORWARD: Continue to offer support and education. Prepare for discharge home. INDIVIDUALIZED FALL PREVENTION: Assistance: Independent Supervision: Pt encouraged to call with questions, changes or concerns. Surveillance: Purposeful rounding Goal: Individualization & Mutuality Outcome: Ongoing (Interventions Implemented as Appropriate) 08/27/18 1026 08/27/18211208/28/18442 Individualization Patient Specific Preferences -- -- , pain control Patient Specific Goals manage pain, up ad annabelle, -- -- Patient Specific Interventions -- -- provide assistance prn, administer pain meds prn Mutuality/Individual Preferences What Anxieties, Fears or Concerns Do You Have About Your Health or Care? -- none -- What Questions Do You Have About Your Health or Care? -- none -- What Information Would Help Us Give You More Personalized Care? -- none -- Goal: Fall Prevention-Safe Patient Handling Outcome: Ongoing (Interventions Implemented as Appropriate) 08/27/18205808/28/1882308/28/181754 Daily Care Interventions Self-Care Promotion -- independence encouraged -- Mckenna Fall Risk History of Falling -- 0 -- Secondary Diagnosis -- 0 -- Ambulatory Aids -- 0 -- Intravenous Therapy/Heparin/Saline Lock -- -- 0 Gait/Transferring -- 0 -- Mental Status -- 0 -- Score -- 20 -- OTHER Mckenna Fall Risk -- Low -- Restraint Interventions Safety Promotion/Fall Prevention -- safety round/check completed;nonskid shoes/slippers when out ofbed -- Positioning Body Position -- independent -- Activity Activity Type up ad annabelle -- -- Activity Assistance Provided independent -- -- Assistive Device Utilized none -- -- Goal: Infection Control Outcome: Ongoing (Interventions Implemented as Appropriate) 08/28/1882308/28/181754 Coping Strategies Supportive Measures active listening utilized -- Safety Interventions Isolation Precautions -- standard precautions maintained Infection Prevention environmental surveillance performed -- Goal: Discharge Needs Assessment Outcome: Ongoing (Interventions Implemented as Appropriate) 08/28/18442 Discharge Needs Assessment Concerns To Be Addressed no discharge needs identified Readmission Within The Last 30 Days no previous admission in last 30 days Provider Choice List(s) Given no Equipment Needed After Discharge none Discharge Disposition still a patient Current Health Anticipated Changes Related to Illness none Activity/Self Care Review of Systems Equipment Currently Used at Home none Living Environment Transportation Available car;family or friend will provide Problem: (Vaginal Delivery) (Adult) Intervention: Support Life/Role Transition 08/27/18205808/28/181754 Coping Strategies Family/Support System Care involvement promoted;presence promoted;support provided -- Trust Relationship/Rapport -- care explained Coping/Psychosocial Interventions Environmental Support environmental consistency promoted;calm environment promoted;personal routinesupported;rest periods encouraged;rooming-in facilitated -- Parent/Child Attachment Promotion attachment promoted;positive reinforcement provided;parent-child separation minimized;rooming-in promoted;tcod-gk-afrr contact encouraged -- Intervention: Prevent/Manage DVT/VTE Risk 08/28/181754 Support Surgical/Anesthesia Recovery VTE Prevention/Management ambulation promoted;bleeding risk assessed;AROM (active range of motion) performed Goal: Signs and Symptoms of Listed Potential Problems Will be Absent, Minimized or Managed () Signs and symptoms of listed potential problems will be absent, minimized or managed by discharge/transition of care (reference (Vaginal Delivery) (Adult) CPG). Outcome: Ongoing (Interventions Implemented as Appropriate) 08/28/18823 (Vaginal Delivery) Problems Assessed ( Vaginal Delivery) all Problems Present ( Vaginal Delivery) none Problem: (Pediatric,[place],NICU) Goal: Identify Related Risk Factors and Signs and Symptoms Related risk factors and signs and symptoms are identified upon initiation of Human Response Clinical Practice Guideline (CPG) Outcome: Ongoing (Interventions Implemented as Appropriate) 08/28/181754 : Related Risk Factors desire for optimal nutrition : Signs and Symptoms nutrition received via * Plan of Care - Tamie Olguin RN - 08/28/2018 4:45 AM EST Problem: Patient Care Overview Goal: Plan of Care Review Outcome: Ongoing (Interventions Implemented as Appropriate) 08/27/18205808/28/18442 Plan of Care Review Progress -- progress toward functional goals as expected Coping/Psychosocial Plan Of Care Reviewed With patient;spouse -- OUTCOME EVALUATION NOTE: OUTCOME SUMMARY: Patient bonding with . independently. Up walking independently. VSS. Fundus and lochia appropriate. Tolerating PO pain meds with relief. PLAN MOVING FORWARD: Continue supporting and assessing maternal wellbeing and . Continue assessing pain management. Encourage rooming in and safe sleeping. INDIVIDUALIZED FALL PREVENTION INTERVENTIONS: Patient-specific fall risk factors per assessment: [current deficits]: New . Assistance [level of assistance required for transfers and ambulation]: Independent Supervision [direct monitoring required during toileting and ADLs]: None Surveillance [continuous indirect monitoring]: Purposeful rounding Patient-specific fall prevention interventions for sensory deficits provided, if applicable: CPG GOAL OUTCOME EVALUATION: Goal: Individualization & Mutuality Outcome: Ongoing (Interventions Implemented as Appropriate) 08/28/18442 Individualization Patient Specific Preferences , pain control Patient Specific Interventions provide assistance prn, administer pain meds prn Goal: Fall Prevention-Safe Patient Handling Outcome: Ongoing (Interventions Implemented as Appropriate) 08/27/18205808/28/18442 Daily Care Interventions Self-Care Promotion -- independence encouraged Mckenna Fall Risk History of Falling 0 -- Secondary Diagnosis 0 -- Ambulatory Aids 0 -- Intravenous Therapy/Heparin/Saline Lock 20 -- Gait/Transferring 0 -- Mental Status 0 -- Score 20 -- OTHER Mckenna Fall Risk Low -- Restraint Interventions Safety Promotion/Fall Prevention safety round/check completed -- Positioning Body Position independent -- Activity Activity Type up ad annabelle -- Activity Assistance Provided independent -- Assistive Device Utilized none -- Goal: Infection Control Outcome: Ongoing (Interventions Implemented as Appropriate) 08/27/182058 Safety Interventions Isolation Precautions standard precautions maintained Infection Prevention environmental surveillance performed;rest/sleep promoted;single patient room provided Coping Strategies Supportive Measures active listening utilized;counseling provided;decision- making supported;positive reinforcement provided;self-care encouraged;verbalization of feelings encouraged Goal: Discharge Needs Assessment Outcome: Ongoing (Interventions Implemented as Appropriate) 08/28/18442 Discharge Needs Assessment Concerns To Be Addressed no discharge needs identified Readmission Within The Last 30 Days no previous admission in last 30 days Provider Choice List(s) Given no Equipment Needed After Discharge none Discharge Disposition still a patient Current Health Anticipated Changes Related to Illness none Activity/Self Care Review of Systems Equipment Currently Used at Home none Living Environment Transportation Available car;family or friend will provide Goal: Interdisciplinary Rounds/Family Conf Outcome: Ongoing (Interventions Implemented as Appropriate) 08/28/18442 Interdisciplinary Rounds/Family Conf Participants family;nursing;patient;physician Problem: (Vaginal Delivery) (Adult) Goal: Signs and Symptoms of Listed Potential Problems Will be Absent, Minimized or Managed () Signs and symptoms of listed potential problems will be absent, minimized or managed by discharge/transition of care (reference (Vaginal Delivery) (Adult) CPG). Outcome: Ongoing (Interventions Implemented as Appropriate) 08/28/18442 (Vaginal Delivery) Problems Assessed ( Vaginal Delivery) all Problems Present ( Vaginal Delivery) none * Plan of Care - Melanie Leyva RN - 08/27/2018 5:25 PM EDT Problem: Patient Care Overview Goal: Plan of Care Review Outcome: Ongoing (Interventions Implemented as Appropriate) 08/27/18 0900 Coping/Psychosocial Plan Of Care Reviewed With patient;spouse VSS. Assessment per flowsheet. BOnding with baby. BF well. Goal: Individualization & Mutuality Outcome: Ongoing (Interventions Implemented as Appropriate) 08/27/18 1026 Individualization Patient Specific Goals manage pain, up ad annabelle, Patient Specific Interventions support Goal: Fall Prevention-Safe Patient Handling Outcome: Ongoing (Interventions Implemented as Appropriate) 08/27/18 0900 08/27/18 1112 Mckenna Fall Risk History of Falling -- 0 Secondary Diagnosis -- 0 Ambulatory Aids -- 0 Intravenous Therapy/Heparin/Saline Lock -- 20 Gait/Transferring -- 0 Mental Status -- 0 Score -- 20 OTHER Mckenna Fall Risk -- Low Restraint Interventions Safety Promotion/Fall Prevention safety round/check completed;activity supervised -- Positioning Body Position independent -- Activity Activity Type activity encouraged -- Activity Assistance Provided assistance, 1 person -- Assistive Device Utilized none -- Goal: Infection Control Outcome: Ongoing (Interventions Implemented as Appropriate) 08/27/18 0900 08/27/18 1429 Safety Interventions Isolation Precautions standard precautions maintained -- Infection Prevention rest/sleep promoted;environmental surveillance performed -- Coping Strategies Supportive Measures -- active listening utilized Goal: Discharge Needs Assessment Outcome: Ongoing (Interventions Implemented as Appropriate) 08/27/18 1723 Discharge Needs Assessment Concerns To Be Addressed no discharge needs identified Readmission Within The Last 30 Days no previous admission in last 30 days Provider Choice List(s) Given no Equipment Needed After Discharge none Discharge Disposition still a patient Current Health Anticipated Changes Related to Illness none Activity/Self Care Review of Systems Equipment Currently Used at Home none Living Environment Transportation Available none Goal: Interdisciplinary Rounds/Family Conf Outcome: Ongoing (Interventions Implemented as Appropriate) 08/27/18 1024 Interdisciplinary Rounds/Family Conf Participants patient;family;nursing;physician * L&D Delivery Note - Kristin Vela MD - 08/27/2018 8:22 AM EDT Delivery Note Emily Mcfadden is a 32 y.o. year old woman at 40w2d weeks gestational age who presented in spontaneous labor with nothing for analgesia. Her is complicated by TOLAC with2 previous LTCS, one for failure to progress with intolerance of labor and the second for elective reasons, pelvic adhesions, history of ectopic with removal of one tube, GBS positive, morbid obesity. She was found to be complete at 0648 with the presenting part at +2 station. She pushed for 7 minutes and spontaneously delivered at 0655 hrs. The infant's head was delivered in a controlled fashion.There was no nuchal cord. The body was delivered without incident over an intact perineum. A viablemale infant was placed on maternal abdomen and had APGARS of 7 and 8 at 1 and 5 minutes with measurements still pending. The cord was clamped in 2 places and transected. Cord blood was taken. The fundus became firm with massage and pitocin. The placenta delivered spontaneously after 7 minutes and it was a 3-vessel cord. Inspection of the vagina and perineum revealed a bilateral labial lacerations, with repair of right laceration with 4-0 vicryl Left labial laceration was superficial and hemostatic. A second degree right vaginal laceration which was repaired with 3-0 vicryl suture. The sulci were examined and found to be intact. No complications. Blood loss estimated at 400ccs. She was in stable condition after delivery. The remained in stable condition at the bedside. Dr. Quintero, Attending Ob-Executive Administrator, was present for the delivery with no conflicting clinical responsibilities. Kristin Vela MD PGY-1 Information for the patient's : Lesa, Carissa shell [[id number]] DELIVERY SUMMARY FOR Carissa Mcfadden (please note there is a separate summary for each fetus) 08/27/2018 6:55 AM by Vaginal, Spontaneous Delivery Sex: male Gestational Age: 40w2d Labor Events labor?: No GBS colonized: positive Rupture identifier: Rupture 1 Rupture date/time: 08/27/2018 06 Rupture type: spontaneous rupture of membranes Fluid color: clear Labor onset type: spontaneous onset of labor Augmentation: None Labor onset date/time: 08/27/2018 0300 Additional complications: Labor Complications Encounter for trial of labor Labor Event Times Labor onset date/time: 08/27/2018 0300 Dilation complete date/time: 08/27/201848 Start pushing date/time: 08/27/2018647 Mother Delivery Episiotomy: None Perineal lacerations: None Periurethral laceration: right Repaired: Yes Labial laceration: bilateral Repaired: Yes Vaginal delivery est. blood loss (mL): 400 Surgical or additional est. blood loss (mL): 0 Combined est. blood loss (mL): 400 Repair suture: Synthetic Delayed Absorbable Number of repair packets: 3 Delivery ([place]) Delivery Date: 08/27/18 Delivery Date: 6:55:00 AM Sex: Male Presentation: Vertex Position: Occiput Anterior Attempted ?: Yes Delivery Type: Vaginal Delivery Type (Specific): Vaginal, Spontaneous Delivery Pre Vaginal Count?: Yes Post Vaginal Count?: Yes Count Correct?: Yes Provider Aware?: Yes Room Searched?: Yes XRay Taken?: No Shoulder Dystocia Shoulder dystocia present?: No Delivery Information Delivery Location: delivery room Delivering Clinician: Kristin Vela MD Other Personnel: Provider Role Emely Subramanian RN Delivery Nurse Jacob Quintero MD Rail Bender Malika Gallo RN Delivery Assist Elizabeth Covarrubias MD Resident Anesthesia Method: None Cord Vessels: 3 Vessels Complications: None Gases Sent?: No Cord Insertion: normal Assessment & APGARS Living status: Living Apgars 1 Minute: 5 Minute: 10 Minute 15 Minute 20 Minute Skin Color: 0 1 Heart Rate: 2 2 Reflex Irritability: 2 2 Muscle Tone: 1 1 Respiratory Effort: 2 2 Total: 7 8 Apgars Assigned By: NURY Resuscitation Method: Suctioning Suctioning Method: Bulb syringe Resuscitation Comment: dried and stimulated Maternal Feeding and Skin to Skin Maternal Choice for (s) Feeding on Admission: Skin to skin initiated date/time: 08/27/2018 0655 Medications [place] Medications Given: vitamin K, erythromycin Measurements No data filed Placenta Date and Time: 08/27/2018 7:02:00 AM Removal: Spontaneous Appearance: Intact Labor Length No data filed Associated attestation - Jacob Quintero MD - 09/07/2018 10:52 PM EST I was present and supervising during the entire delivery and laceration repair. I agree with the description as outlined. The baby was vigorous and the lacerations were performed as outlined. JACOB QUINTERO MD documented in this encounter Plan of Treatment Not on file documented as of this encounter Procedures Procedure Name Priority Date/Time Associated Diagnosis Comments SURGICAL PATHOLOGY REPORT Routine 08/27/2018 8:55 AM EDT SPECIMEN TO PATHOLOGY Routine 08/27/2018 8:55 AM EDT HEMOGRAM STAT 08/27/2018 5:00 AM EDT DIFFERENTIAL, AUTOMATED STAT 08/27/2018 5:00 AM EDT CBC (WITH DIFF) STAT 08/27/2018 5:00 AM EDT documented in this encounter Results * Surgical Pathology Report (08/27/2018 8:55 AM EDT) Final Diagnosis [id number] ? Location: ; [facility]; The signing pathologist has (i) examined the relevant preparation(s) for the specimen(s) and (ii) rendered or confirmed the diagnosis(es). . ?Surgical Pathology DIAGNOSIS A - Term placenta, 523 grams. ?Weight between 25th and 50th percentiles for gestation. ?No chorioamnionitis. ?Apropriate villous maturation, with multifocal parenchymal infarction ?hematoma and unifocal mid-parenchymal infarction with perivillous ?fibrin (5% to 10% of placental volume). ?Three vessel umbilical cord with venous ectasia and no funisitis. Electronically signed by: ??Kartik FAITH, Rei Hanson Verified: ??08/31/2018 ?Pathologist Performed at: ??-[facility], [place], [place] CLINICAL INFORMATION Specimen Submitted: A - Placenta Provided clinical history/diagnosis : ?? Labor, term, GBS positive status post treatment completion. SPECIMEN PROCESSING A - Labeled/Fixative: Placenta, fresh. Quantity/Size/Abdoul ght: Single, 21.0 x 18.0 x 1.8 cm, 523 g. Integrity: Intact. Shape: Ovoid. Membranes: ? - Insertion: 100 percent marginal ??. ? - Color and Clarity: [place]-red and clear. Cord: ? - Size: 2.0 x 1.3 cm. ? - Number of Vessels: Three. ? - Insertion site: Paracentral. Surface: ? - Color and Clarity: Purple and clear. Maternal Surface: Appears complete and intact displaying a moderate amount of peripheral and central loosely attached old red-brown blood clot. Parenchyma: Spongy, red-brown with three peripheral and central rubbery cain white lesions measuring up to 2.0 cm. The lesions occupy approximately 5-10 percent of the parenchymal volume. Sections/Processi ng: Paper Twister Tender sections in 11 cassettes as follows: ? A1: ??Membrane roll ? A2: ??Proximal and distal cord ? A3-A8: ??Full thickness parenchyma ? A9-A11: ??Parenchymal lesions ??ejr 08/31/2018 2:02 PM EST [facility] TISSUE SPECIMEN FROM PLACENTA / Unknown 08/27/2018 8:55 AM EDT 08/27/2018 8:55 AM EDT Kristin Vela MD PATHOLOGY/CYTOLOG Y ORDERABLES [facility] [place] [address] * Specimen to Pathology (08/27/2018 8:55 AM EDT) AP Specimen 08/27/2018 8:55 AM EDT 08/27/2018 8:55 AM EDT Narrative [facility] - 08/27/2018 8:55 AM EDT Specimen requisition ordered. ??Separate Pathology report to follow Jacob Quintero MD PATHOLOGY/CYTOLOGY [place] [facility] [place] [address] * (ABNORMAL) Differential, Automated (08/27/2018 5:00 AM EDT) Neutrophil % 85.4 % [facility] Neutrophil Absolute 17.77(H) 1.70 - 6.10 x10(3)/ L [facility] Lymph % 10.3 % [facility] Lymphocytes Abs 2.1 0.9 - 3.2 x10(3)/[facility] Monocyte % 3.1 % [facility] Monocyte Abs 0.6 0.3 - 0.9 x10(3)/[facility] Eos % 0.0 % [facility] Eosinophils Abs 0.0 0.0 - 0.4 x10(3)/[facility] Basophil % 0.3 % [facility] Baso Absolute 0.1 0.0 - 0.1 x10(3)/ L [facility] Immature Gran % 0.90 % [facility] Comment: Immature granulocytes(IG's)percentage and absolute count will include metamyelocytes, myelocytes, and promyelocytes. Blood smears from CBCs yielding IG's will be scanned manually for concordance. If this scan disagrees with the automated IG or if promyelocytes are noted, a manual differential will be performed. Immature Gran Absolute 0.19(H) 0.00 - 0.04 x10(3)/ L [facility] Blood specimen (specimen) 08/27/2018 5:00 AM EDT 08/27/2018 5:30 AM EDT Narrative Resulting Agency Comment Spec In Lab Kristin Vela MD HEMATOLOGY ORDERA BLES [facility] [place] [address] * (ABNORMAL) Hemogram (08/27/2018 5:00 AM EDT) White Blood Cell 20.8(H) 4.0 - 9.5 x10(3)/mc L [facility] Red Blood Cell 4.89 4.00 - 5.21 x10(6)/mc L [facility] Hemoglobin 12.3 11.7 - 15.5 gm/dL [facility] Hematocrit 36.3 35.7 - 45.8 % [facility] Mean Cell Volume 74.2(L) 82.6 - 94.4 fL [facility] Mean Cell Hemoglobin 25.2(L) 27.1 - 32.0 pg [facility] Mean Cell Hemoglobin Concentration 33.9 31.7 - 35.0 gm/dL [facility] Platelet 305 145 - 357 x10(3)/mc L [facility] RDW Standard Deviation 38.3 37.0 - 46.0 fL [facility] RDW coefficient of variation 14.5(H) 11.5 - 14.1 % [facility] Mean Platelet Volume 8.5 7.6 - 12.9 fL [facility] NRBC% auto 0.0 % [facility] NRBC Absolute 0.000 0.000 - 0.000 x10(3)/ L [facility] Blood specimen (specimen) 08/27/2018 5:00 AM EDT 08/27/2018 5:30 AM EDT Narrative Resulting Agency Comment Spec In Lab Kristin Vela MD HEMATOLOGY ORDERA BLES [facility] [place] [address] documented in this encounter Visit Diagnoses Not on filedocumented in this encounter Admitting Diagnoses Diagnosis Encounter for trial of labor documented in this encounter Administered Medications Inactive Administered Medications - up to 3 most recent administrations Medication Order MAR Action Action Date Dose Rate Site docusate sodium (COLACE) capsule 100 mg 100 mg, Oral, 2 TIMES DAILY, First dose on 08/27/18 at 0915, Until Discontinued, Routine Given 08/28/2018 11:38 AM EST 100 mg Given 08/27/2018 8:56 PM EDT 100 mg Given 08/27/2018 10:35 AM EDT 100 mg glycerin-witch meghan (TUCKS) 12.5-50 % pads Topical (Top), 4 TIMES DAILY PRN, Irritation, perineal pain, Starting on 08/27/18 at 0855, Until 08/29/18 at 1347 Given 08/28/2018 9:32 PM EST ibuprofen (ADVIL;MOTRIN) tablet 600 mg 600 mg, Oral, EVERY 6 HOURS PRN, Starting on 08/27/18 at 0855, Until 08/29/18 at 1347, Pain, - If ordered with other PRN pain medications give Ibuprofen first, then acetaminophen, then additional agents according to the pain scale., Routine Given 08/28/2018 3:46 PM EST 600 mg Given 08/28/2018 3:27 AM EST 600 mg Given 08/27/2018 10:35 AM EDT 600 mg documented in this encounter Active and Recently Administered Medications Due to Daylight Saving Time, this section may contain times in both EDT and EST. Scheduled Medication Order 08/27/2018 08/28/2018 08/29/2018 ceFAZolin (ANCEF) 2g in dextrose 5% 100 mL (COMPLETED) 2 g, Intravenous, ONCE, 1 dose, On 08/27/18 at 0515, Administer over 30 Minutes, Indication for (Active or Suspected): Prophylaxis 0518 (New Bag - Provider: Emely Subramanian, HANG)0548 (Due: Stopped - Provider: Emely Subramanian RN) docusate sodium (COLACE) capsule 100 mg 100 mg, Oral, 2 TIMES DAILY, First dose on 08/27/18 at 0915, Until Discontinued, Routine 1035 (Given - Provider: Monica Mancilla RN)6 (Given - Provider: Tamie Olguin RN) 1138 (Given - Provider: Melanie Leyva RN)2124 (Not Given - Provider: Nusrat Ocampo RN - Reason: Patient/family refused) 0900 (Due) fentaNYL (PF) 50mcg/mL injection (COMPLETED) 75 mcg, Intravenous, ONCE, 1 dose, On 08/27/18 at 0745, If given subcutaneously, do not administer more than 2 mL as a single injection., Routine 0713 (Given - Provider: Malika Gallo, HANG) oxytocin (PITOCIN) 30 units in sodium chloride 0.9% 500 mL infusion (COMPLETED) 75 mL/hr, Intravenous, ONCE, 1 dose, On 08/27/18 at 0915, ., Routine 0657 (New Bag - Provider: Monica Mancilla RN - Comment: Started post by Domitila Subramanian RN) sodium chloride 0.9 % flush 5 mL 5 mL, Intravenous, EVERY 12 HOURS, First dose on 08/27/18 at 0700, Until Discontinued, Routine 0700 (Due)1900 (Due) 0700 (Due)1900 (Not Given - Provider: Nusrat Ocampo RN - Reason: Loss of access) 0700 (Due) Continuous Medication Order 08/27/2018 08/28/2018 08/29/2018 lactated Ringers infusion 100 mL/hr, Intravenous, CONTINUOUS, Starting on 08/27/18 at 0915, Until 08/29/18 at 1347, Administer until tolerating clear liquids then saline lock. 0915 (Due) PRN Medication Order 08/27/2018 08/28/2018 08/29/2018 acetaminophen (TYLENOL) tablet 650 mg 650 mg, Oral, EVERY 6 HOURS PRN, Starting on 08/27/18 at 0855, Until 08/29/18 at 1347, Pain, - If ordered with other PRN pain medications give Ibuprofen first, then acetaminophen, then additional agents according to the pain scale. - Not to exceed 4g in 24 hours, Routine glycerin-witch meghan (TUCKS) 12.5-50 % pads Topical (Top), 4 TIMES DAILY PRN, Irritation, perineal pain, Starting on 08/27/18 at 0855, Until 08/29/18 at 1347 2132 (Given - Provider: Nusrat Ocampo, RN) ibuprofen (ADVIL;MOTRIN) tablet 600 mg 600 mg, Oral, EVERY 6 HOURS PRN, Starting on 08/27/18 at 0855, Until 08/29/18 at 1347, Pain, - If ordered with other PRN pain medications give Ibuprofen first, then acetaminophen, then additional agents according to the pain scale., Routine 1035 (Given - Provider: Monica Mancilla RN) 0327 (Given - Provider: Tamie Olguin RN)1546 (Given - Provider: Fatimah Guillen RN) documented in this encounter Care Teams Claims Counsel Relationship Specialty Start Date End Date Oscar Garduno MD [facility] INTER[facility] [place] [address] PCP - General General Internal Medicine 05/07/2104/24 documented as of this encounter
--- OUTSIDE RECORDS SUMMARY | 2024-06-07 22:49 | XMS_ITS | Encounter Summary ---
Author Organization [facility] [place] [address] Care Team Providers Care Leaded Glass Installer Name Role Phone Oscar Garduno MD Primary Care Provider Reason for Referral * Consultation (Routine) - Closed Specialty Diagnoses / Procedures Referred By Contac t Referred To Contact Internal Medicine Diagnoses Adult BMI 40.0-44.9 kg/sq m Oscar Garduno MD [facility] [place] [address] [facility] Internal Medicine [address] [place] [address] Referral ID Status Reason Start Date Expiration Date V isits Requested Visits Authorized [id number] Closed Continuity of Care 05/12/2021 05/12/2022 1 1 * Surgical (Routine) - Closed Specialty Diagnoses / Procedures Referred By Contac t Referred To Contact Orthopaedics Diagnoses Ganglion cyst LEFT HAND GANGLION CYST Oscar Garduno MD [facility] [place] [address] [facility] [address] [place] [phone] Referral ID Status Reason Start Date Expiration Date V isits Requested Visits Authorized [id number] Closed Specialty Service Requested 05/12/2021 05/12/2022 1 1 Reason for Visit * Reason Comments Hypertension states that she had some high BP readings at gyno appt on April 15. Encounter Details Date Type Department Care Team (Late st Contact Info) Description 05/12/2021 2:30 PM EDT Office Visit Internal Medicine at [facility] [place] [place] [address] Oscar Garduno MD [facility] [place] [address] Hypertension, unspecified type (Primary Dx); Adult BMI 40.0-44.9 kg/sq m; Ganglion cyst; Healthcare maintenance Social History Tobacco Use Types Packs/Day Years Used Date Smoking Tobacco: Former Cigarettes 0.5 5 2 - 2011 Smokeless Tobacco: Never Alcohol Use Standard Drinks/Week Comments No 0 (1 standard drink = 0.6 oz pur e alcohol) Sex and Gender Information Value Date Recorded Sex Assigned at Not on file Gender Identity Not on file Sexual Orientation Not on file documented as of this encounter Last Filed Vital Signs Vital Sign Reading Time Taken Comments Blood Pressure 143/83 05/12/2021 2:26 PM EDT Pulse 103 05/12/2021 2:26 PM EDT Temperature 36.4 ??C (97.6 ??F) 05/12/2021 2:26 PM ED T Respiratory Rate 16 05/12/2021 2:26 PM EDT Oxygen Saturation 100% 05/12/2021 2:26 PM EDT Inhaled Oxygen Concentration - - Weight 109.3 kg (241 lb) 05/12/2021 2:26 PM EDT Height 161.3 cm (5' 3.5) 05/12/2021 2:26 PM EDT Body Mass Index 42.02 05/12/2021 2:26 PM EDT documented in this encounter Progress Notes * Oscar Garduno MD - 05/12/2021 2:30 PM EDT Subjective: HPI: Emily Mcfadden is a 35 y.o. female presenting to Internal Medicine at [facility] for establishment of care. She was found to have elevated BP of 160/110 (with 3 repeated measures) in her annual [facility] clinic in March. She endorses frequent migraines, no symptoms of blurry vision, palpitation, SOB. denies fever, chill, N/V, diarrhea, constipation. She also has a cyst in her left wrist, and even though it is not causing her any pain, she would like to get it removed. PMH Chronic pain related to [facility] HX Currently nursing She is on IUD for 2 yrs Allergies Allergen Reactions ??? Augmentin [Amoxicillin-Pot Clavulanate] Hives As a 4 year old Meds ??? ibuprofen (ADVIL;MOTRIN) 200 mg Tablet ??? acetaminophen (TYLENOL) 325 mg tablet FH Hypertension in both maternal and paternal grandparents and parents. Sister has gestational HTN Social History Smoking: Half a pack for 5 yrs, quit 15 yrs ago Drinking: socially Drugs: medical marijuana (external use) ROS (positive in bold): General fevers, chills, night sweats, weight loss/gain HEENT changes in vision or hearing Card chest pain, palpitations Pulm SOB, cough, SAUCEDO GI abd pain, nausea, vomiting, diarrhea, constipation, dysphagia, reflux dysuria, urinary frequency, urgency MS: arthritis, arthralgia, muscle aches Neuro weakness, numbness, tingling, RUSH Skin rash, skin lesions Psych depression, anxiety, difficulty sleeping Objective VS: BP 143/83 (BP Location (NBP): Left arm, Patient Position: Sitting, BP Cuff Sizes: Large Adult (32-43 cm)) Pulse (!) 103 Temp 36.4 ??C (97.6 ??F) (Temporal) Resp 16 Ht 161.3 cm (5' 3.5) Wt 109.3 kg (241 lb) SpO2 100% BMI 42.02 kg/m?? Constitutional: She is oriented to person, place, and time. She appears well- developed and well-nourished. No distress. Head: Normocephalic and atraumatic. Neck: Normal range of motion. Neck supple. No thyromegaly present. Cardiovascular: Normal rate, regular rhythm, normal heart sounds and intact distal pulses. Exam reveals no gallop and no friction rub. No murmur heard. Pulmonary/Chest: Effort normal and breath sounds normal. No respiratory distress. She has no wheezes. She has no rales. Abdominal: Soft. Bowel sounds are normal. She exhibits no distension. There is no tenderness. Neurological: She is alert and oriented to person, place, and time. Skin: Skin is warm and dry. No rash noted. No erythema. Psychiatric: She has a normal mood and affect. Her behavior is normal. Judgment and thought contentnormal. Assessment and Plan: Emily is seen today for establishment of care. 1. Hypertension, unspecified type Pt has elevated BP reads in [facility] clinic and today's BP also measured as 143/83. She also has FH of HTN - f/u Basic Metabolic Panel (non-fasting); - refer to manager non profit for life style modification - instructed to use bp cuffs to measure her BP at home - RTC in 1m 2. Adult BMI 40.0-44.9 kg/sq m Pt expressed concern and would like to talk about ways to mange her weight - f/u Lipid Panel (Reflex Direct LDL) - f/u Hemoglobin A1c - Referral to Nutrition Services 3. Ganglion cyst - Referral to Orthopaedics 4. Healthcare maintenance - Hepatitis C Antibody; Future - Hepatitis C Antibody FOLLOWUP: Return in about 4 weeks (around 06/09/2021) for pcp , In Person. Next appointment with MD Oscar Myrick MD * Vani Maldonado MD - 05/12/2021 2:30 PM EDT I have seen the patient in person and reviewed the resident's above history and I agree with the details as written. The assessment and plan were formulated in discussion with me and I agree with them as documented. Pertinent History: Chief Complaint Patient presents with ??? Hypertension states that she had some high BP readings at gyno appt on April 15. 35 year old woman 2 years post and here for follow up BP after found to be HTN post , also nodule on her wrist and to establish care -hx migraines - and currently nursing -FH +HTN on both sides of the family and sister with gestational HTN -SH: ex smoker, no alcohol, medical cannabis for chronic pelvic pain post c section Pertinent Exam: BP 143/83 (BP Location (NBP): Left arm, Patient Position: Sitting, BP Cuff Sizes: Large Adult (32-43 cm)) Pulse (!) 103 Temp 36.4 ??C (97.6 ??F) (Temporal) Resp 16 Ht 161.3 cm(5' 3.5) Wt 109.3 kg (241 lb) SpO2 100% BMI 42.02 kg/m?? BP Readings from Last 3 Encounters: 05/12/21 143/83 08/29/18 123/68 08/25/18 142/87 Major issues addressed/Plan: 1. Elevated BP: cmp, home monitor 2. Wrist ganglion cyst: refer to Hand Ortho 3. Class 3 Obesity: lipids, a1c; reviewed diet; refer nutrition 4. Chronic pelvic pain: on medical cannabis 5. HM: needs hep C RTC 1 month pcp, bring BP cuff RTC documented in this encounter Plan of Treatment Scheduled Referrals Name Type Priority Associated Diagnoses Order Schedule Referral to Orthopaedics Outpatient Referral Routine Ganglion cyst Ordered: 05/12/2021 Referral to Nutrition Services Outpatient Referral Routine Adult BMI 40.0-44.9 kg/sq m Ordered: 05/12/2021 documented as of this encounter Procedures Procedure Name Priority Date/Time Associated Diagnosis Comments HC HEPATITIS C ANTIBODY Routine 05/12/2021 3:55 PM EDT Healthcare maintenance HC HEMOGLOBIN A1C Routine 05/12/2021 3:5 5 PM EDT Adult BMI 40.0-44.9 kg/sq m LIPID PANEL (REFLEX DIRECT LDL) Routine 05/12/2021 3:55 PM EDT Adult BMI 40.0-44.9 kg/sq m HC VENIPUNCTURE Routine 05/12/2021 3:55 PM EDT Hypertension, unspecified type documented in this encounter Results * (ABNORMAL) Basic Metabolic Panel (non-fasting) (05/12/2021 3:55 PM EDT) [facility] Signature Glucose 84 65 - 199 mg/dL [facility] Comment:Diabetes: >=200 mg/d L plus symptoms Blood Urea Nitrogen 10 8 - 18 mg/dL [facility] Creatinine 0.76 0.70 - 1.20 mg/dL [facility] Sodium 138 135 - 145 mmol/L [facility] Potassium 3.7 3.5 - 5.0 mmol/L [facility] Comment: Please note: ??Patients with WBC >100,000 may have falsely elevated Potassium levels. ??For accurate Potassium quantification in these patients send serum separator tube (gold top) for subsequent determinations. ??Contact the Clinical Chemistry Laboratory if there are any questions. Chloride 105 98 - 107 mmol/L [facility] Carbon Dioxide 20(L) 22 - 31 mmol/L [facility] Anion Gap 13 5 - 15 mmol/L [facility] Calcium 9.5 8.5 - 10.5 mg/dL [facility] Est Glomerular Filtration Rate 101 >=60 mL/min/1. 73 m?? [facility] Comment: This patient? s estimated glomerular filtration rate (eGFR) is between 101 mL/min/1.73 m2 (patients with less muscle mass) and 117 mL/min/1.73 m2 (patients with more muscle mass) as determined by the CKD-EPI equation. Assessment of eGFR is not appropriate when creatinine concentrations are rapidly changing. For clinical decisions where creatinine clearance will affect therapy, a 24-hour urine creatinine clearance may be advised. Assignment of CKD stage 1 - 5 for patients with an eGFR near the transition point between stages may be based on clinical assessment of muscle mass and symptoms in addition to eGFR. Blood 05/12/2021 3:55 PM EDT 05/12/2021 4:06 PM EDT Narrative Resulting Agency Comment Spec In Lab Vani Maldonado MD CHEMISTRY ORDERABL ES [facility] [place] [address] * Hepatitis C Antibody (05/12/2021 3:55 PM EDT) Pathologist [facility] [place] Hepatitis C Antibody Negative Negative [facility] Blood 05/12/2021 3:55 PM EDT 05/12/2021 4:06 PM EDT Narrative Resulting Agency Comment Spec In Lab Vani Maldonado MD CHEMISTRY ORDERABL ES [facility] [place] [address] * Hemoglobin A1c (05/12/2021 3:55 PM EDT) [facility] Hemoglobin A1c 4.9 4.3 - 5.6 % [facility] Comment: Reference Range: 4.3 - 5.6% 5.7 - 6.4% - Increased Risk of Developing Diabetes Mellitus >= 6.5% - Consistent with diagnosis of Diabetes Mellitus In the absence of hyperglycemia (i.e. plasma glucose > 200 mg/dL) or classic symptoms of hyperglycemia a repeat measurement of HbA1c should be performed on a separate sample to confirm the diagnosis. Diagnosis and Classification of Diabetes Mellitus, Diabetes Care 2013; 36: Suppl. 1, N07-21 Estimated Average Glucose 95 mg/dL [facility] Comment: eAG equivalents for HbA1c percentages: HbA1c(%) ?eAG(mg/dL) 6.0 ?126 6.5 ?140 7.0 ?154 7.5 ?169 8.0 ?183 8.5 ?197 9.0 ?212 9.5 ?226 10.0 ? 240 Limitations: The eAG calculation has not been validated on women, individuals below 18 years old and above 70 years old, and individuals with hemoglobinopathies. Additional resources are available on the ADA website. King TODD, Amina J, Devon R, et al. ??Translating the A1C assay into estimated average glucose values. ??Diabetes Care 2008:31(8):7847-7483. Blood 05/12/2021 3:55 PM EDT 05/12/2021 4:06 PM EDT Narrative Resulting Agency Comment Spec In Lab Vani Maldonado MD CHEMISTRY ORDERABL ES [facility] [place] [address] * Lipid Panel (Reflex Direct LDL) (05/12/2021 3:55 PM EDT) Pathologist [facility] [place] Cholesterol, Total 229 mg/dL [facility] Comment: Lower Risk: <200 mg/dL Average Risk: 200-239 mg/dL Higher Risk: >ud=432 mg/dL Triglyceride 134 mg/dL [facility] Comment: Average Risk/Lower Risk: <150 mg/dL Borderline High Risk: 150-199 mg/dL High Risk: 200-499 mg/dL Very High Risk: >ly=889 mg/dL HDL Cholesterol 43 mg/dL [facility] Comment: Males: ?? Higher Risk: <40 mg/dL Females: ?? Higher Risk: <50 mg/dL LDL Cholesterol 159 mg/dL [facility] Comment: Lowest Risk: <100 mg/dL Lower Risk: 100-129 mg/dL Borderline High Risk: 130-159 mg/dL High Risk: 160-189 mg/dL Very High Risk: >qc=356 mg/dL Cholesterol/HDL Ratio 5.3 ratio [facility] Lipid Interpretation See Note [facility] Comment: Lipid management should be guided by a patient? s ASCVD risk, goals and preferences. ACC/AHA Guidelines recommend high intensity statin if clinical ASCVD or LDL greater than or equal to 190 mg/dL. http://Avacenurl.com/WGQ-MHL-Kkknwjmws Adults aged 40-75 with LDL 70-189 mg/dL should have their 10 year ASCVD risk estimated with the ACC/AHA ASCVD risk commercial estimator http://tools.acc.org/FNALO-Oepx-Lvraxutxn/ Statin should be discussed if risk greater than or equal to 7.5% in non-diabetics. With diabetes, moderate intensity statin is recommended if risk less than 7.5%, high intensity if risk greater than or equal to 7.5%. Annual lipid monitoring on statins is not necessary. Evaluate secondary causes of Triglycerides greater than 500 mg/dL or LDL greater than 190 mg/dL: See table 6 of ACC/AHA Guideline. Lifestyle modification is a critical component of ASCVD risk reduction. Blood 05/12/2021 3:55 PM EDT 05/12/2021 4:06 PM EDT Narrative Resulting Agency Comment Spec In Lab Vani Maldonado MD CHEMISTRY ORDERABL ES [facility] [place] [address] documented in this encounter Visit Diagnoses Diagnosis Hypertension, unspecified type- Primary Adult BMI 40.0-44.9 kg/sq m Body Mass Index 40.0-44.9, adult Ganglion cyst Ganglion, unspecified Healthcare maintenance Routine general medical examination at a health care facility documented in this encounter Care Teams Leaded Glass Installer Relationship Specialty Start Date End Date Oscar Garduno MD [facility] [place] [address] PCP - General General Internal Medicine 05/07/2104/24 documented as of this encounter
--- OUTSIDE RECORDS SUMMARY | 2024-06-07 22:49 | XMS_ITS | Encounter Summary ---
Author Organization [facility] [place] [address] Care Team Providers Care Cloth Stock Sorter Name Role Phone None Primary Care Provider Unavailabl e Encounter Details Date Type Department Care Team (Late st Contact Info) Description 07/01/2018 Telephone Obstetrics [place] [phone] Herminia Zaidi RN Social History Tobacco Use Types Packs/Day Years Used Date Smoking Tobacco: Former Cigarettes 0.5 5 2 - 2011 Smokeless Tobacco: Never Alcohol Use Standard Drinks/Week Comments No 0 (1 standard drink = 0.6 oz pur e alcohol) Comments Yes Sex and Gender Information Value Date Recorded Sex Assigned at Not on file Gender Identity Not on file Sexual Orientation Not on file documented as of this encounter Miscellaneous Notes * Telephone Encounter - Herminia Zaidi RN - 07/01/2018 3:25 PM EDT TELEPHONE NOTE Caller: Lenka Zaidi RN Reason for call: C/S date and Hand Splints Assessment: Patient notified, per Dr. Maya, that her has been scheduled for 08/26/18. Plan/Instructions: Patient notified that we can order bilateral hand splints for carpal tunnel, perDr. Maya. She was advised to call her insurance company to see which company they will cover for this. Patient states she will provide us with that information. * Telephone Encounter - Herminia Zaidi RN - 07/01/2018 3:25 PM EDT ----- Message from Yael Maya MD sent at 07/01/2018 3:03 PM EDT ----- I would like this pt to have bilateral hand splints for carpal tunnel. 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 She lives in [facility]. Yael Urena ----- Message ----- From: Grace Hansen Sent: 06/30/2018 3:22 PM To: Yael Maya MD She's all set! ----- Message ----- From: Yael Maya MD Sent: 06/30/2018 3:01 PM To: Grace Hansen Pls put in for C/S on 08/26, Yael Urena documented in this encounter Plan of Treatment Not on file documented as of this encounter Visit Diagnoses Not on filedocumented in this encounter Care Teams Cloth Stock Sorter Relationship Specialty Start Date End Date None None PCP - General 02/02/18 10/11/19 documented as of this encounter
--- OUTSIDE RECORDS SUMMARY | 2024-06-07 22:49 | XMS_ITS | Encounter Summary ---
Author Organization [facility] [place] [address] Care Team Providers Care Under Trimmer Name Role Phone None Primary Care Provider Unavailabl e Reason for Visit * Reason Comments Routine Visit Encounter Details Date Type Department Care Team (Late st Contact Info) Description 06/02/2018 4:15 PM EDT Routine Obstetrics [place] [address] Hayder Fowler MD [facility] [address] OBSTETRICS & [place] [address] GA: 28w0d Social History Tobacco Use Types Packs/Day Years [...] Sign Reading Time Taken Comments Blood Pressure 117/73 06/02/2018 4:16 PM EDT Pulse - - Temperature - - Respiratory Rate - - Oxygen Saturation - - Inhaled Oxygen Concentration - - Weight 105.8 kg (233 lb 4.8 oz) 06/02/2018 4:16 PM EDT Height - - Body Mass Index 40.05 02/02/2018 10:56 AM EDT documented in this encounter Progress Notes * Paige Ly CCMA - 06/02/2018 4:15 PM EDT The patient denies travel by her or her partner to an area with endemic Zika infection including [place]. * Hayder Fowler MD - 06/02/2018 4:15 PM EDT Subjective: Emily Mcfadden presents to the clinic at 28w4d for a routine appointment. She denies any leaking of fluid, vaginal bleeding, or cramping. She reports good movement. We had a long discussion about TOLAC vs repeat . We reviewed the risks and benefits of a trial of labor. Explained that with a TOLAC following two sections, her risk of uterine rupture is between 1% and 3% based on current ACOG although this data is limited. We also reviewed the risks of section including bleeding, infection, and damage to internal organs, and the cumulative risks ssociated with multiple repeat sections. Based on the [facility] calculator, her chance of successful vaginal delivery is 35%. The patient reported that she had a lot of adhesions with her last and that she understands that this can make the procedure more difficult. Objective: BP 117/73 Wt 105.8 kg (233 lb 4.8 oz) LMP 11/18/2017 BMI 40.05 kg/m2 06/02/2018 16:00 Hemoglobin 12.2 Hematocrit 35.1 (L) Glucose 1 hr Gest Screen 84 Fundal height- 29 FHT- 140 Assessment/Plan: 32 y.o. at 28w4d gestation with normal 28 week labs and S=D. - With regards to her delivery plan, patient is undecided at this time but is strongly leaning towards having a repeat section given her low chance of a successful . She feels if she goes into spontaneous labor prior to 39 weeks, then she would like to try a TOLAC but if she is still at 39 weeks then she would proceed with a repeat . She does not want to be induced. She is hoping to continue to discuss her plan at her next after her and her have had time to discuss. - Return for next appointment at 32 weeks. - Due for Tdap at next appointment - Encouraged kick counts for decreased movement. Reviewed warning signs and reasons to call. Patient discussed with THADDEUS Aldridge Attending. Hayder Fowler MD 06/02/18 * Jaimie Wesley MD - 06/02/2018 4:15 PM EDT I have discussed the plan of care with the resident, and agree with documentation as above. Jaimie Wesley MD documented in this encounter Plan of Treatment Not on file documented as of this encounter Visit Diagnoses Diagnosis Encounter for supervision of other normal Morbid obesity with BMI of 40.0-44.9, adult Morbid obesity H/O section complicating Previous delivery, unspecified as to episode of care or not applicable documented in this encounter Care Teams Under Trimmer Relationship Specialty Start Date End Date None None PCP - General 02/02/18 10/11/19 documented as of this encounter
--- OUTSIDE RECORDS SUMMARY | 2024-06-07 22:49 | XMS_ITS | Encounter Summary ---
Author Organization [facility] [place] [address] Care Team Providers Care Chief Technical Officer Name Role Phone Unknown Primary Care Provider Unavailabl e Encounter Details Date Type Department Care Team (Late st Contact Info) Description 01/29/2011 Orders Only Obstetrics [place] [address] Yareli Ly MD [facility] [address] OBSTETRICS & [place] [address] Social History Tobacco Use Types Packs/Day Years Used Date Smoking Tobacco: Never Assessed Sex and Gender Information Value Date Recorded Sex Assigned at Not on file Gender Identity Not on file Sexual Orientation Not on file documented as of this encounter Plan of Treatment Not on file documented as of this encounter Visit Diagnoses Not on filedocumented in this encounter Care Teams Chief Technical Officer Relationship Specialty Start Date End Date Unknown None PCP - General 01/20/11 07/03/12 documented as of this encounter
--- OUTSIDE RECORDS SUMMARY | 2024-06-07 22:49 | XMS_ITS | Encounter Summary ---
[place] [address] Care Team Providers Care Brand Director Name Role Phone None Primary Care Provider Unavailabl e Encounter Details Date Type Department Care Team (Latest Contact Info) Description 02/08/2018 9:50 AM EDT Laboratory Appointment [place] [address] [place] [phone] Morbid obesity with BMI of 40.0-44.9, adult; Encounter for supervision of other normal in first trimester; Microcytosis; screening encounter Social History Tobacco Use Types Packs/Day Years [...] Procedure Name Priority Date/Time Associated Diagnosis Comments SPINAL MUSCULAR ATROPHY Routine 02/08/2018 10:13 AM EDT Encounter for supervision of other normal in first trimester MISCELLANEOUS LAB REQUEST Routine 02/08/2018 10:13 AM EDT screening encounter TSH Routine 02/08/2018 10:13 AM EDT Morbid obesity with BMI of 40.0-44.9, adult Encounter for supervision of other normal in first trimester FERRITIN Routine 02/08/2018 10:13 AM EDT Microcytosis documented in this encounter Results * Miscellaneous Lab request (02/08/2018 10:13 AM EDT) Label Request received in lab. [facility] Blood specimen (specimen) 02/08/2018 10:13 AM EDT 02/08/2018 11:06 AM EDT Narrative Resulting Agency Comment Spec In Lab E Sabina Rocha MD LAB SEND OUT ORDE RABLES [facility] [place] [address] * Ferritin (02/08/2018 10:13 AM EDT) Ferritin 49 15 - 150 ng/mL [facility] Comment: Pediatric reference ranges not verified at [facility], interpret with caution. Reference ranges for females greater than 50 years of age approach values for men, i.e., 30-400 ng/mL. Blood specimen (specimen) 02/08/2018 10:13 AM EDT 02/08/2018 10:25 AM EDT Narrative Resulting Agency Comment Spec In Lab E aSbina Rocha MD CHEMISTRY ORDERAB LES Performing Organization Address City/[facility]/[place] [address] * Spinal Muscular Atrophy (02/08/2018 10:13 AM EDT) Pathologist [facility] Spinal Muscular Atrophy See Scan Report [facility] Comment:Test performed by [email or web address], [address] [place] [id number] Blood specimen (specimen) 02/08/2018 10:13 AM EDT 02/08/2018 2:25 PM EDT Narrative Resulting Agency Comment Spec In Lab Yael Maya MD MOLECULAR ORDERABLES [facility] [place] [address] * TSH (02/08/2018 10:13 AM EDT) Thyroid Stimulating Hormone 1.36 0.27 - 4.20 mlU/ML [facility] Blood specimen (specimen) 02/08/2018 10:13 AM EDT 02/08/2018 10:25 AM EDT Narrative Resulting Agency Comment Spec In Lab Yael Maya MD CHEMISTRY ORDERABLES [facility] [place] [address] documented in this encounter Visit Diagnoses Diagnosis Morbid obesity with BMI of 40.0-44.9, adult Morbid obesity Encounter for supervision of other normal in first trimester Microcytosis Other abnormality of red blood cells screening encounter Unspecified screening documented in this encounter Care Teams Brand Director Relationship Specialty Start Date End Date None None PCP - General 02/02/18 10/11/19 documented as of this encounter
--- OUTSIDE RECORDS SUMMARY | 2024-06-07 22:49 | XMS_ITS | Encounter Summary ---
[place] [address] Care Team Providers Care Cottage Master Name Role Phone None Primary Care Provider Unavailabl e Reason for Referral * Consultation (Routine) - Closed Specialty Diagnoses / Procedures Referred By Contac t Referred To Contact Obstetrics and Gynecology Diagnoses Encounter for supervision of other normal in first trimester Johnathon Maya MD [facility] [address] OBST[place] [address] [facility] [employer] [address] [place] [address] Referral ID Status Reason Start Date Expiration Date V isits Requested Visits Authorized [id number] Closed Consult, Test & Treat 02/02/2018 02/02/2019 1 1 Reason for Visit * Reason Comments Initial Visit Encounter Details Date Type Department Care Team (Late st Contact Info) Description 02/02/2018 10:00 AM EDT Initial Obstetrics [place] [address] Johnathon Maya MD [facility] OBSTETRICS AND GYNECOLOGY [place], [place] [id number] Obdulia Herbert RN GA: 10w6d Social History Tobacco Use Types Packs/Day Years [...] Sign Reading Time Taken Comments Blood Pressure 120/80 02/02/2018 10:48 AM EDT Pulse 78 02/02/2018 10:48 AM EDT Temperature 36.7 ??C (98.1 ??F) 02/02/2018 10:48 AM E DT Respiratory Rate 16 02/02/2018 10:48 AM EDT Oxygen Saturation 96% 02/02/2018 10:48 AM EDT Inhaled Oxygen Concentration - - Weight 108.9 kg (240 lb) 02/02/2018 10:48 AM EDT Height 162.6 cm (5' 4) 02/02/2018 10:56 AM EDT Body Mass Index 41.2 02/02/2018 10:48 AM EDT documented in this encounter Progress Notes * Johnathon Maya MD - 02/02/2018 10:00 AM EDT Subjective: Aniyah Mcfadden is a 32 y.o. at 10 6/7 wks by sure LMP of 11/18/2017, consistent with 1st trimester US at [facility], who presents for new OB visit. She is here with her Emerson and their two children ages 9 and 6. She is generally feeling pretty well. Some nausea. No bleeding. 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 It is no different than usual. Gynecologic History: LMP - 11/18/2017 Paps - had one just a few weeks ago at [facility]. Always normal. STD's - denies OB History Para Term AB Living 4 2 2 1 2 SAB TAB Ectopic Multiple Live Births 1 2 No past medical history on file. Past Surgical History: Procedure Laterality Date ??? SECTION, LOW TRANSVERSE 2007 ??? SECTION, LOW TRANSVERSE 2011 ??? ECTOPIC SURGERY rigfht salpingectomy No family history on file. Social History Social History ??? Marital status: Spouse name: N/A ??? Number of children: N/A ??? Years of education: N/A Occupational History ??? Not on file. Social History Main Topics ??? Smoking status: Former Smoker ??? Smokeless tobacco: Not on file ??? Alcohol use Not on file ??? Drug use: Not on file ??? Sexual activity: Not on file Other Topics Concern ??? 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 Review of Systems Pertinent items are noted in HPI. Objective: LMP 11/18/2017 Gen- Appears well, NAD Skin - no lesions or rashes noted Neck - no thyromegaly or thyroid nodules, no cervical lymphadenopathy Lungs - CTA B/L Heart - RRR, no murmurs Abdomen - soft , NT, no masses appreciated. Pfannenstiel incision well-healed Pelvic - Exam deferred. Bedside US - Single live IUP with normal heart rate and movement noted Assessment and Plan: Aniyah is a 32 yo at 10 6/7 wks by LMP c/w 6 wk US. Questions answered. Will need more thorough counseling at a later visit Genetics visit scheduled for [place] discussion. SMA testing. New OB labs today. Will do early 1 hr at later date. Cant stay today. TSH ordered for BMI >40. Detailed 18 wk US for BMI >30. MFM to read F/U at 18 wks. Get US, pap and GC/CT results from [facility]. Get prior op report from [place]. We discussed early precautions, dietary recommendations, and staying active during . Johnathon Maya MD * Obdulia Herbert, RN - 02/02/2018 10:00 AM EDT Aniyah Rodriguez Lesa presents for initial visit. LMP 11/18/17. Last PAP 12/2017, denies history of abnormal PAP. denies daily nausea, instructed patient on home remedies to try(gabriela candy, gabriela belinda, gabriela, c- bands, small frequent bland meals, vitamin B6 tablets 25mg three times daily with 1/2 tablet unisom at night). denies emesis. Reports chronic lower abdomen pain with rightlower cramping from adhesions from cesareans, also right oophrectomy. denies spotting. denies active bleeding. denies heartburn. considering Centering. Would like [place] Genetic testing(information and book given to patient). Reports negative for CF and considering SMA testing. ACOG book given to patient. Informed patient how to reach clinic and providers with any questions or concerns. Verbalizes understanding will want previous medical records. In the past year: Ob Screener 02/02/2018 Drinking frequency Never RICHARD Never Substance use treatment No Use tobacoo or nicotine products No Use marijuana or synthetic marijuana products No documented in this encounter Plan of Treatment Pending Results Name Type Priority Associated Diagnoses Date /Time GC/Chlamydia (Leb/CGP) Vaginal Microbiology Routine Encounter for related examination in first trimester 02/04/2018 11:49 AM EDT Scheduled Referrals Name Type Priority Associated Diagnoses Orde r Schedule Referral to Maternal Medicine Outpatient Referral Routine Encounter for supervision of other normal in first trimester Ordered: 02/02/2018 documented as of this encounter Procedures Procedure Name Priority Date/Time Associated Diagnosis Comments HEMOGRAM Routine 02/02/2018 12:07 PM EDT Encounter for related examination in first trimester SCREEN Routine 02/02/2018 12:07 PM EDT Encounter for related examination in first trimester DIFFERENTIAL, AUTOMATED Routine 02/02/2018 12:07 PM EDT Encounter for related examination in first trimester SYPHILIS ANTIBODY SCREEN WITH REFLEX Routine 02/02/2018 12:07 PM EDT Encounter for related examination in first trimester ABO/RH TYPING Routine 02/02/2018 12:07 PM EDT Encounter for related examination in first trimester RUBELLA ANTIBODY, IGG Routine 02/02/2018 12:07 PM EDT Encounter for related examination in first trimester HIV SCREEN, 4TH GENERATION ([facility]/CGP/APD/NLH) Routine 02/02/2018 12:07 PM EDT Encounter for related examination in first trimester HEPATITIS B SURFACE ANTIGEN Routine 02/02/2018 12:07 PM EDT Encounter for related examination in first trimester ANTIBODY SCREEN Routine 02/02/2018 12:07 PM EDT Encounter for related examination in first trimester VARICELLA ZOSTER ANTIBODY, IGG Routine 02/02/2018 12:07 PM EDT Encounter for related examination in first trimester CYTOPATHOLOGY GYNECOLOGICAL Routine 02/02/2018 11:04 AM EDT Encounter for related examination in first trimester URINE CULTURE Routine 02/02/2018 11:00 AM EDT Encounter for related examination in first trimester POCT URINE Routine 02/02/2018 10:35 AM EDT Encounter for related examination in first trimester documented in this encounter Results * US OB Detailed Morphology (03/25/2018 1:46 PM EDT) Anatomical Region Laterality Modality Pelvis, Abdomen Ultrasound 03/25/2018 1:43 PM EDT Impressions 03/25/2018 1:54 PM EDT 2nd Trimester - Detailed Morphology - Summary Single intrauterine with a gestational age of 18w 1d based on LMP ??(11/18/17) Composite age based on the current ultrasound alone is 18w 5d. Current growth parameters are consistent with prior dating indicating normal growth. Amniotic fluid volume is subjectively appropriate for gestational age. Detailed anatomic evaluation was performed. There is a unilateral right choroid plexus cyst. The remainder of the anatomy evaluation appears within normal limits. ? Lazaro Rocha MD Electronically Signed Final Report ?? 03/25/2018 01:54 pm Narrative 03/25/2018 1:54 PM EDT OBSTETRICS REPORT ? (Signed Final 03/25/2018 01:54 pm) PATIENT INFO: ID #: ? [id number] ?: ??[birth year] (32 yrs) Name: ? ANIYAH Rodriguez ? Visit Date: 03/25/2018 01:43 pm ? MCKENNA- ? SAMMI PERFORMED BY: Performed By: ? Garret MARIE, ??Gianna Attending: ?Lazaro Rocha MD ??Sabina Referred By: ?JOHNATHON MAYA Location: ? [place] SERVICE(S) PROVIDED: ??[facility] - Detailed Morphology - [id number] ? [id number] INDICATIONS: ??18 weeks gestation of ?Z3A.18 ??Obesity TECHNIQUE/SCAN QUALITY: Scan ? Limited due to maternal body habitus. Quality: OB HISTORY: Blood ?Height: ??5'4 ?Weight (lb): 240 ? BMI: ??41.19 Type: : ?4 ? Term: ?? 2 ? SAB: ?? 1 Living: ? 2 EVALUATION: Num Of Fetuses: ? 1 Heart ? 150 Rate(bpm): Cardiac Activity: ?? Observed, normal rhythm Presentation: ? Breech Placenta: ? Anterior P. Cord Insertion: ??Within Normal Limits Amniotic Fluid BECKY FV: ?Subjectively appropriate for gest age --------- BIOMETRY: --------- BPD: ?41.3 ??mm ? G.Age: ?? 18w 3d OFD: ?57.9 ??mm HC: ?158.6 ??mm ? G.Age: ?? 18w 5d AC: ?130.6 ??mm ? G.Age: ?? 18w 4d FL: ? 29.3 ??mm ? G.Age: ?? 19w 0d HUM: ?29.3 ??mm ? G.Age: ?? 19w 4d CER: ?18.1 ??mm ? G.Age: ?? 18w 0d NFT: ? 3.3 ??mm NB: ? 4.41 ??mm LV: ?6.5 ??mm CM: ?3.4 ??mm CI: ?71.3 ??% ? 70 - 86 FL/HC: ? 18.5 ??% ? 15.8 - 18 HC/AC: ? 1.21 ?1.07 - 1.29 FL/BPD: ?70.9 ??% FL/AC: ? 22.4 ??% ? Est. FW: ? 257 ?? gm ? 0 lb 9 oz GESTATIONAL AGE: LMP: ? 18w 1d ?Date: ??11/18/17 ? BRIGHT: ?? 08/25/18 U/S Today: ? 18w 5d ?BRIGHT: ?? 08/21/18 Best: ?18w 1d ?? Det. By: ??LMP ??(11/18/17) ?BRIGHT: ?? 08/25/18 TARGETED ANATOMY: Central Nervous System Calvarium/Cranial V.: ??Within Normal Limits Intracranial Chely: ? Within Normal Limits Cavum: ? Within Normal Limits Parenchyma: ?Within Normal Limits Lateral Ventricles: ?Within Normal Limits Choroid Plexus: ?Unilateral choroid ple Cereb./Vermis: ? Within Normal Limits Cisterna Magna: ?Within Normal Limits Corpus Callosum: ? Within Normal Limits Midline Falx: ?Within Normal Limits Spine Cervical: ?Visualized Thoracic: ?Visualized Lumbar: ?Visualized Sacral: ?Visualized Shape/Curvature: ? Visualized Head/Neck Face: ?Within Normal Limits Lips: ?Within Normal Limits Ear Position/Size: ? Visualized Neck: ?Within Normal Limits Nuchal Fold: ? Within Normal Limits Nasal Bone: ?Present Profile: ? Visualized Orbits/Eyes: ? Visualized Mandible: ?Visualized Maxilla: ? Visualized Thorax Thoracic Contour: ?Within Normal Limits Lungs: ? Visualized 4 Chamber View: ?Within Normal Limits Cardiac Motion: ?Normal Rhythm Rt Outflow Tract: ?Visualized Lt Outflow Tract: ?Visualized Aortic Arch: ? Visualized Ductal Arch: ? Visualized SVC: ? Visualized Cardiac Weiser: ?Visualized Diaphragm: ? Visualized 3 Vessel View: ? Visualized IVC: ? Visualized Abdomen Ventral Wall: ?Visualized Cord Insertion: ?Visualized Situs: ? Normal Stomach: ? Visualized Liver: ? Visualized Lt Kidney: ? Visualized Rt Kidney: ? Visualized Bladder: ? Visualized Bowel: ? Visualized Extremities Lt Humerus: ?Within Nomal Limits Rt Humerus: ?Within Normal Limits Lt Forearm: ?Within Normal Limits Rt Forearm: ?Within Normal Limits Lt Hand: ? Within Normal Limits Rt Hand: ? Within Normal Limits Lt Femur: ?Within Normal Limits Rt Femur: ?Within Normal Limits Lt Lower Leg: ?Within Normal Limits Rt Lower Leg: ?Within Normal Limits Lt Foot: ? Visualized Rt Foot: ? Visualized Other Umbilical Cord: ?3 vessel cord Genitalia: ? Male CERVIX UTERUS ADNEXA: Left Ovary Not visualized Right Ovary Not visualized Procedure Note Lazaro Rocha MD - 03/25/2018 OBSTETRICS REPORT (Signed Final 03/25/2018 01:54 pm) PATIENT INFO: ID #: [id number] : [birth year] (32 yrs) Name: ANIYAH Rodriguez Visit Date: 03/25/2018 01:43 pm DARREL CHAPA PERFORMED BY: Performed By: Gianna Combs RDMS Attending: Lazaro Rocha MD Referred By: JOHNATHON MAYA Location: [place] SERVICE(S) PROVIDED: [facility] - Detailed Morphology - [id number] INDICATIONS: 18 weeks gestation of Z3A.18 Obesity TECHNIQUE/SCAN QUALITY: Scan Limited due to maternal body habitus. Quality: OB HISTORY: Blood Height: 5'4 Weight (lb): 240 BMI: 41.19 Type: : 4 Term: 2 SAB: 1 Livin EVALUATION: Num Of Fetuses: 1 Heart 150 Rate(bpm): Cardiac Activity: Observed, normal rhythm Presentation: Breech Placenta: Anterior P. Cord Insertion: Within Normal Limits Amniotic Fluid BECKY FV: Subjectively appropriate for gest age --------- BIOMETRY: --------- BPD: 41.3 mm G.Age: 18w 3d OFD: 57.9 mm HC: 158.6 mm G.Age: 18w 5d AC: 130.6 mm G.Age: 18w 4d FL: 29.3 mm G.Age: 19w 0d HUM: 29.3 mm G.Age: 19w 4d CER: 18.1 mm G.Age: 18w 0d NFT: 3.3 mm NB: 4.41 mm LV: 6.5 mm CM: 3.4 mm CI: 71.3 % 70 - 86 FL/HC: 18.5 % 15.8 - 18 HC/AC: 1.21 1.07 - 1.29 FL/BPD: 70.9 % FL/AC: 22.4 % 20 - 24 Est. FW: 257 gm 0 lb 9 oz GESTATIONAL AGE: LMP: 18w 1d Date: 11/18/17 BRIGHT: 08/25/18 U/S Today: 18w 5d BRIGHT: 08/21/18 Best: 18w 1d Det. By: LMP (11/18/17) BRIGHT: 08/25/18 TARGETED ANATOMY: Central Nervous System Calvarium/Cranial V.: Within Normal Limits Intracranial Chely: Within Normal Limits Cavum: Within Normal Limits Parenchyma: Within Normal Limits Lateral Ventricles: Within Normal Limits Choroid Plexus: Unilateral choroid ple Cereb./Vermis: Within Normal Limits Cisterna Magna: Within Normal Limits Corpus Callosum: Within Normal Limits Midline Falx: Within Normal Limits Spine Cervical: Visualized Thoracic: Visualized Lumbar: Visualized Sacral: Visualized Shape/Curvature: Visualized Head/Neck Face: Within Normal Limits Lips: Within Normal Limits Ear Position/Size: Visualized Neck: Within Normal Limits Nuchal Fold: Within Normal Limits Nasal Bone: Present Profile: Visualized Orbits/Eyes: Visualized Mandible: Visualized Maxilla: Visualized Thorax Thoracic Contour: Within Normal Limits Lungs: Visualized 4 Chamber View: Within Normal Limits Cardiac Motion: Normal Rhythm Rt Outflow Tract: Visualized Lt Outflow Tract: Visualized Aortic Arch: Visualized Ductal Arch: Visualized SVC: Visualized Cardiac Weiser: Visualized Diaphragm: Visualized 3 Vessel View: Visualized IVC: Visualized Abdomen Ventral Wall: Visualized Cord Insertion: Visualized Situs: Normal Stomach: Visualized Liver: Visualized Lt Kidney: Visualized Rt Kidney: Visualized Bladder: Visualized Bowel: Visualized Extremities Lt Humerus: Within Nomal Limits Rt Humerus: Within Normal Limits Lt Forearm: Within Normal Limits Rt Forearm: Within Normal Limits Lt Hand: Within Normal Limits Rt Hand: Within Normal Limits Lt Femur: Within Normal Limits Rt Femur: Within Normal Limits Lt Lower Leg: Within Normal Limits Rt Lower Leg: Within Normal Limits Lt Foot: Visualized Rt Foot: Visualized Other Umbilical Cord: 3 vessel cord Genitalia: Male CERVIX UTERUS ADNEXA: Left Ovary Not visualized Right Ovary Not visualized IMPRESSION 2nd Trimester - Detailed Morphology - Summary Single intrauterine with a gestational age of 18w 1d based on LMP (11/18/17) Composite age based on the current ultrasound alone is 18w 5d. Current growth parameters are consistent with prior dating indicating normal growth. Amniotic fluid volume is subjectively appropriate for gestational age. Detailed anatomic evaluation was performed. There is a unilateral right choroid plexus cyst. The remainder of the anatomy evaluation appears within normal limits. Lazaro Rocha MD Electronically Signed Final Report 03/25/2018 01:54 pm Johnathon Maya MD IMG US OB ORDERABLES * Spinal Muscular Atrophy (02/08/2018 10:13 AM EDT) Spinal Muscular Atrophy See Scan Report [facility] Comment:Test performed by [facility], [address] [place] [id number] Blood specimen (specimen) 02/08/2018 10:13 AM EDT 02/08/2018 2:25 PM EDT Narrative Resulting Agency Comment Spec In Lab Johnathon Maya MD MOLECULAR ORDERABLES Performing Organization Address City/[facility]/ZIP Co de Phone Number [facility] [place] [address] * TSH (02/08/2018 10:13 AM EDT) Thyroid Stimulating Hormone 1.36 0.27 - 4.20 mlU/ML [facility] Blood specimen (specimen) 02/08/2018 10:13 AM EDT 02/08/2018 10:25 AM EDT Narrative Resulting Agency Comment Spec In Lab Johnathon Maya MD CHEMISTRY ORDERABLES [facility] [place] [address] * HIV Screen, 4th Generation (02/02/2018 12:07 PM EDT) [facility] HIV Ab/Ag Screen Negative Negative [facility] Comment: This 4th Generation HIV test screens for the presence of the HIV-1 p24 antigen as well as antibodies reactive against HIV-1 and HIV-2. A negative screen does not rule out an acute HIV infection. If acute HIV infection is suspected, testing should be repeated in 2 - 3 weeks or HIV nucleic acid testing performed. Blood specimen (specimen) 02/02/2018 12:07 PM EDT 02/02/2018 12:18 PM EDT Narrative Resulting Agency Comment Spec In Lab Johnathon Maya MD CHEMISTRY ORDERABLES Performing Organization Address [facility]/ZIP Co de Phone Number [facility] [place] [address] * Syphilis Screening Antibody with reflex RPR (02/02/2018 12:07 PM EDT) [facility] Syphilis IgG/IgM Negative Negative [facility] Blood specimen (specimen) 02/02/2018 12:07 PM EDT 02/02/2018 12:18 PM EDT Narrative Resulting Agency Comment Spec In Lab Johnathon Maya MD CHEMISTRY ORDERABLES Performing Organization Address City/[facility]/ZIP Co de Phone Number [facility] [place] [address] * (ABNORMAL) Differential, Automated (02/02/2018 12:07 PM EDT) [facility] Neutrophil % 65.2 % [facility] Neutrophil Absolute 8.28(H) 1.70 - 6.10 x10(3)/mc L [facility] Lymph % 27.7 % [facility] Lymphocytes Abs 3.5(H) 0.9 - 3.2 x10(3)/mc L [facility] Monocyte % 5.1 % [facility] Monocyte Abs 0.6 0.3 - 0.9 x10(3)/[facility] LABORAT[facility] Eos % 1.3 % [facility] Eosinophils Abs 0.2 0.0 - 0.4 x10(3)/[facility] LABORATORY Basophil % 0.4 % [facility] Baso Absolute 0.0 0.0 - 0.1 x10(3)/[facility] LABORATORY Immature Gran % 0.30 % [facility] Comment: Immature granulocytes(IG's)percentage and absolute count will include metamyelocytes, myelocytes, and promyelocytes. Blood smears from CBCs yielding IG's will be scanned manually for concordance. If this scan disagrees with the automated IG or if promyelocytes are noted, a manual differential will be performed. Immature Gran Absolute 0.04 0.00 - 0.04 x10(3)/[facility] LABORATORY Blood specimen (specimen) 02/02/2018 12:07 PM EDT 02/02/2018 12:18 PM EDT Narrative Resulting Agency Comment Spec In Lab Johnathon Maya MD HEMATOLOGY ORDERABLE S [facility] [place] [address] * (ABNORMAL) Hemogram (02/02/2018 12:07 PM EDT) White Blood Cell 12.7(H) 4.0 - 9.5 x10(3)/[facility]AT[facility] Red Blood Cell 5.16 4.00 - 5.21 x10(6)/[facility] Hemoglobin 14.0 11.7 - 15.5 gm/dL [facility] Hematocrit 40.7 35.7 - 45.8 % [facility] Mean Cell Volume 78.9(L) 82.6 - 94.4 fL [facility] Mean Cell Hemoglobin 27.1 27.1 - 32.0 pg [facility] Mean Cell Hemoglobin Concentration 34.4 31.7 - 35.0 gm/dL [facility] Platelet 325 145 - 357 x10(3)/mc L [facility] RDW Standard Deviation 38.6 37.0 - 46.0 fL [facility] RDW coefficient of variation 13.5 11.5 - 14.1 % [facility] Mean Platelet Volume 7.8 7.6 - 12.9 fL [facility] NRBC% auto 0.0 % [facility] NRBC Absolute 0.000 0.000 - 0.000 x10(3)/mc L [facility] Blood specimen (specimen) 02/02/2018 12:07 PM EDT 02/02/2018 12:18 PM EDT Narrative Resulting Agency Comment Spec In Lab Johnathon Maya MD HEMATOLOGY ORDERABLE S Performing Organization Address [facility] Co de Phone Number [facility] [place] [address] * Rubella Antibody, IgG (02/02/2018 12:07 PM EDT) Pathologist [facility] Rubella Antibody IgG Positive Positive [facility] Comment: Please note: ??A positive result for this assay indicates that antibody levels are >or= 10.0 IU/mL and is considered to be an indicator of positive immune status. Blood specimen (specimen) 02/02/2018 12:07 PM EDT 02/02/2018 12:18 PM EDT Narrative Resulting Agency Comment Spec In Lab Johnathon Maya MD CHEMISTRY ORDERABLES Performing Organization Address [facility]/ZIP Co de Phone Number [facility] [place] [address] * Hepatitis B Surface Antigen (02/02/2018 12:07 PM EDT) Pathologist [facility] Hepatitis B Surface Antigen Negative Negative [facility] Blood specimen (specimen) 02/02/2018 12:07 PM EDT 02/02/2018 12:18 PM EDT Narrative Resulting Agency Comment Spec In Lab Johnathon Maya MD CHEMISTRY ORDERABLES [facility] [place] [address] * Antibody screen (02/02/2018 12:07 PM EDT) Ab Screen Interp Negative [facility] Expires at [id number] on: 02/05/2018 [facility] Blood specimen (specimen) 02/02/2018 12:07 PM EDT 02/02/2018 12:24 PM EDT Narrative Resulting Agency Comment Spec In Lab Johnathon Maya MD BLOOD BANK LAB ORDER TACO Performing Organization Address City/[facility]/ZIP Co de Phone Number [facility] [place] [address] * ABO/Rh Typing (02/02/2018 12:07 PM EDT) ABORH Type O Pos [facility] Blood specimen (specimen) 02/02/2018 12:07 PM EDT 02/02/2018 12:24 PM EDT Narrative Resulting Agency Comment Spec In Lab Johnathon Maya MD BLOOD BANK LAB ORDER TACO [facility] [place] [address] * Varicella zoster Antibody, IgG (02/02/2018 12:07 PM EDT) Varicella Zoster Antibody IgG Pos [facility] Blood specimen (specimen) 02/02/2018 12:07 PM EDT 02/02/2018 2:29 PM EDT Narrative Resulting Agency Comment Spec In Lab Johnathon Maya MD IMMUNOLOGY ORDERABLE S [facility] [place] [address] * Cytopathology Gynecological (02/02/2018 11:04 AM EDT) AP Specimen 02/02/2018 11:0 4 AM EDT 02/02/2018 11:04 AM EDT Narrative [facility] - 02/02/2018 11:04 AM EDT Specimen requisition ordered. ??Separate Pathology report to follow Johnathon Maya MD PATHOLOGY/CYTOLOGY O RDERABLES Performing Organization Address [facility]/[place] [address] * (ABNORMAL) Urine culture Clean Catch Urine (02/02/2018 11:00 AM EDT) Urine Culture 10,000-49,000 cfu/ml mixed mucosal ella Note: Culture shows multiple bacterial species suggesting mucosal contamination. If symptoms continue to indicate urinary tract infection, submit a new specimen. (A) [facility] Urine specimen obtained by clean catch procedure (specimen) 02/02/2018 11:00 AM EDT 02/02/2018 1:15 PM EDT Narrative Resulting Agency Comment Spec In Lab Johnathon Maya MD MICROBIOLOGY - GENER AL ORDERABLES Performing Organization Address [facility] Co de Phone Number [facility] [place] [address] * POCT urine (02/02/2018 10:35 AM EDT) POC Urine HCG Positive Negative - Negative POC Control Internal Controls Acceptable 02/02/2018 10:3 5 AM EDT Johnathon Maya MD POINT OF CARE TEST O REBA documented in this encounter Visit Diagnoses Diagnosis Encounter for related examination in first trimester H/O section complicating Previous delivery, unspecified as to episode of care or not applicable Morbid obesity with BMI of 40.0-44.9, adult Morbid obesity Encounter for supervision of other normal in first trimester Chronic pelvic pain in female Unspecified symptom associated with female genital organs H/O section complicating Previous delivery, unspecified as to episode of care or not applicable Morbid obesity with BMI of 40.0-44.9, adult Morbid obesity Encounter for supervision of other normal in first trimester documented in this encounter Care Teams Cottage Master Relationship Specialty Start Date End Date None None PCP - General 02/02/18 10/11/19 documented as of this encounter
--- OUTSIDE RECORDS SUMMARY | 2024-06-07 22:49 | XMS_ITS | Encounter Summary ---
Author Organization [facility] [place] [address] Care Team Providers Care Customer Account Administrator Name Role Phone None Primary Care Provider Unavailabl e Reason for Visit * Reason Comments Routine Visit Ultrasound Encounter Details Date Type Department Care Team (Late st Contact Info) Description 03/25/2018 2:20 PM EDT Routine Obstetrics [place] [address] Zaynab Arndt, [facility] OBSTETRICS [place] [address] GA: 18w1d Social History Tobacco Use Types Packs/Day Years [...] Sign Reading Time Taken Comments Blood Pressure 124/71 03/25/2018 2:22 PM EDT Pulse - - Temperature - - Respiratory Rate - - Oxygen Saturation - - Inhaled Oxygen Concentration - - Weight 107 kg (235 lb 12.8 oz) 03/25/2018 2:22 P M EDT Height - - Body Mass Index 40.47 02/02/2018 10:56 AM EDT documented in this encounter Progress Notes * Denice Toscano LPN - 03/25/2018 2:20 PM EDT The patient denies travel by her or her partner to an area with endemic Zika infection including [place]. * Zaynab Arndt CNM - 03/25/2018 2:20 PM EDT 18w1d here with Emerson for follow up morph Detailed morph reviewed- normal growth, anterior placenta, normal fluid, unilateral DISASTER DIRECTOR noted Reviewed low risk Frederick screening and benign nature of DISASTER DIRECTOR with this information Reassurance provided Having some right ear discomfort, feeling like there is water in it. Hurts with changing elevation Otoscope exam reveals normal appearing inner ear, + light reflex, no swelling or erythema present, no acute findings in either ear Denies allergies or recent illness, no fevers or pain Suggested 1-2 days of sudafed to see if this helps with pressure, unable to pop her ears for relief RTO in 6wks, sooner PRN documented in this encounter Plan of Treatment Not on file documented as of this encounter Visit Diagnoses Diagnosis Encounter for supervision of other normal in second trimester- Primary Encounter for supervision of other normal in first trimester documented in this encounter Care Teams Customer Account Administrator Relationship Specialty Start Date End Date None None PCP - General 02/02/18 10/11/19 documented as of this encounter
--- OUTSIDE RECORDS SUMMARY | 2024-06-07 22:49 | XMS_ITS | Encounter Summary ---
Author Organization Formerly [facility] [place] [address] Care Team Providers Care Button Sewing Machine Operator Name Role Phone None Primary Care Provider Unavailabl e Reason for Visit * Reason Comments Laboring * Auth/Cert Specialty Diagnoses / Procedures Referred By Contac t Referred To Contact Diagnoses Encounter for trial of labor Procedures EMERGENCY IPI Referral ID Status Reason Start Date Expiration Date Visits Re quested Visits Authorized [id number] 1 1 Encounter Details Date Type Department Care Team (Latest Contact Info) Description 08/27/2018 4:06 AM EDT - 08/29/2018 11:47 AM EST Hospital En[place] [id number] Jacob Quintero MD [facility] OBSTETRICS [place] [address] Desires tubal ligation Discharge Disposition: Home Social History Tobacco Use Types Packs/Day Years [...] AM EST Discharge Summary Patient Name: Emily Mcfadden Patient Age: 32 y.o. Language: Ukrainian Race: White Ethnicity: Not nor Admit date: 08/27/2018 Discharge date and time: 08/29/2018 Attending Physician: Jacob Quintero MD Discharge Physician: Shasha Davenport MD Care Provider: [facility]: [facility] Referring Hospital: N/A Follow-up Recommendations for Providers: Interval Tubal request- needs pre-op appointment placed and request for tubal operation 6 weeks PP Inpatient Provider Contact Information: [facility] WARDROBE TECHNICIAN Department, Discharge Diagnoses (Hospital Problems) and Secondary [...] Hospital Course Including Delivery and Events [facility] 32 y.[facility] woman [...] incident over an intact perineum. A viablemale was placed on maternal abdomen and had [...] Information Information for the patient's : Lesa, Baby boy [[id number]] INFORMATION Baby sumaya Mcfadden 08/27/2018 6:55 AM by Vaginal, Spontaneous Delivery Sex: male Gestational Age: 40w2d Measurements: Weight: 6 lb 8.6 oz (2965 g) APGARS One Minute Five Minutes Ten Minutes Totals: 7 8 EBL: 400 Vital signs at Discharge: BP: 121/79, Heart Rate: 73, Temp: 37 ??C (98.6 ??F), Resp: 18, BMI (Calculated): 42.02 Height: 161.3 cm (5' 3.5) (08/27/18 0423) Weight: 109.3 kg (241 lb) (08/27/18 042) Functional and Cognitive status: intact Important Studies [...] daily. 1 tablet Refills: 0 vitamin with ooskzyiv-Yv-Yjfd-FA Tab Commonly known as: VITAMIN Take 1 [...] care provider. If you were seen at [facility] you will be contacted to set up [...] Depression Contact Numbers: If you see an employee relations advisor call: [phone] 9 am - 5 pm, after 5 pm If you see a dehydration unit operator call: [phone] all hours If you see a family practitioner call: [phone] all hours If you were transferred to our institution for delivery and cannot reach your local OB provider, call the employee relations advisor numbers. Pain Control: Alternate 625 mg tylenol and 600 mg ibuprofen every 3 hours for pain control. General Instructions None Future Appointments and Orders Future Appointments and Orders Future Appointments Provider Department Dept Phone 08/29/2018 1:20 PM Zaynab Arndt CNM Obstetrics and Gynecology at [place] Arrive at: Court Interpreter Area 5L [phone] Future Orders Complete By Expires LAPAROSCOPY W\FULGURATION OF FALLOPIAN TUBES [[id number] Custom] As directed Process Instructions: Scheduling Instructions: This order is to be used for Surgeries and Procedures being performed at [facility] Main OR, OSC,CSI, Endoscopy, [facility] or [facility], the [facility], [facility] and [facility] only. For Surgeries and Procedures being performed [...] exercised vigorously before or you are a locks tender, you can work up to vigorous-intensity activity. Stop exercising if you feel pain.?? https://www.[facility].org/Patients/FAQs/Czqjvwhf-Ftntr-Pboytuyhs?[email or web address]=false#ho w Nutrition: Your diet following the of [...] times a day and use of witch megahn may help relieve soreness. Kegel exercise, done [...] the OB Clinic. Call your doctor or dehydration unit operator for: ??? Seizure (call 911) ??? Headache [...] prior to you follow up appointment. Your [facility] Provider can be reached during office hours at ??? Midwives ??? Obstetricians ??? Services AFTER OFFICE HOURS for the employee relations advisor or dehydration unit operator sterilization tech Provider electronic signature confirms that discharge instructions were reviewed with the patient. A copy was printed and given to the patient. * Patient Instructions* Rosemarie Chopra MD - 08/29/2018 7:08 AM EST Patient Instructions Follow-up: Six weeks care provider. If you were seen at [facility] you will be contacted to set up [...] Depression Contact Numbers: If you see an employee relations advisor call: [phone] 9 am - 5 pm, after 5 pm If you see a dehydration unit operator call: [phone] all hours If you see a family practitioner call: [phone] all hours If you were transferred to our institution for delivery and cannot reach your local OB provider, call the employee relations advisor numbers. Pain Control: Alternate 625 mg tylenol [...] needed. 14 each 08/29/2018 05/12/2021 vitamin with thgedbae-Rb-Vswa-FA ( VITAMIN) TabletIndications:Encou nter for supervision of [...] ?? Interval tubal for contraception ?? for infant nutrition without concerns ?? Follow-up: 6 weeks PP with tubal This patient was seen and discussed on rounds. Rosemarie Chopra MD PGY1 08/29/2018 Associated attestation - [...] 135, Variability: moderate, Accels: yes, Decels: none, Tyhee: q2-4 Category: I Labs: Lab Results Component [...] seen and discussed with Dr. Quintero, Attending WARDROBE TECHNICIAN. Kristin Vela MD PGY-1 06/16/2018 Associated attestation [...] [place] Secondary Insurance: N/A Car Seat: Has infant car seat. Transportation: Has appropriate transportation for discharge. No psychosocial or discharge needs identified at this time. P: Home with . Technical Services Representative/Sales Representative Adding Machines remains available as needed for coordination of care, psychosocial support and discharge planning. Kristen Marr RN Pager [phone] Extension [phone] * Note - Ernestine Multani RN - 08/29/2018 9:45 AM EST This note was copied from a baby's chart. ASSESSMENT INPATIENT Encounter Date/Time: 08/29/2018 / 09:20 Baby's name: Carissa Mcfadden : 08/27/2019 Time of : 6:55 [...] weight loss: -8% MATERNAL INFO: Emily Mcfadden [id number] 1985 G 4 P 3 Significant History: Previous experience: Yes--BF her previous Breast Surgery: No history Breast Changes During : Yes Breast Exam : Size: Large Shape: Round Venous Pattern: Within Normal Limits Milk Production: Colostral Phase Normal Nipple Exam : Everted Color: [place] Compressible: Yes Trauma: Emily denies nipple pain [...] mom holding baby at breast Coordination of Suck: Smooth/rhythmic Position: Right: Cradle hold, mom [...] 3 hours, awaken as needed Optimal positioning: Uhcd-ef-vgvnxl positioning Esyu-oa-gpdjq technique Breast massage and manual expression techniques reviewed with mom Breast massage during , alternated with breast compression during pauses to keep baby engaged in feeding. Principles of baby-led feedings/finish first breast first/attempt to BF on both sides at each feed (assess interest/satiety cues) Ventral/Recumbent with infants self-attachment Strategies to manage physiological engorgement Written contact information for [facility] Services prn Pamphlets Provided Feeding Log Your Guide To --Why is Important Management of engorgement symptoms CDC recommendations for pump part cleaning and sterilization [facility] Services Card On-going Concerns: Weight loss about 8% Monitor growth and nutrition closely Discharge Planning: -Follow-up with 's PCP after discharge -VNA follow-up PRN -[facility] Services post-discharge, Mother will call if she desires further assistance is aware of outpatient phone and visit support available to her. -Local IBCLC support after discharge home, prn, parents are from [facility] support area -Feeding Plan: Breast feed on demand - anticipate baby will nurse 8-12 times in 24 hours. -Keep a Feeding Log the first few weeks: record times/duration, pumping volumes, any supplement given, and stools/wet diapers; this journal can be helpful to review with the careprovider, VNA or energy sales consultant. -Report difficulty waking, poor nursing and/or irritability to your provider 15 minutes were spent with this family, providing assessment, assistance, education, and support. Mother voices understanding of education and recommendations. Ernestine Multani RN, IBCLC [facility] Services * Plan of Care - Nusrat [...] CPG). Outcome: Ongoing (Interventions Implemented as Appropriate) 08/28/1882308/29/18 0654 (Vaginal Delivery) Problems Assessed ( Vaginal Delivery) all -- Problems Present ( Vaginal Delivery) -- none Problem: (Pediatric,[place],NICU) Goal: Effective Patient will demonstrate the desired outcomes by discharge/transition of care. Outcome: Ongoing (Interventions Implemented as Appropriate) 08/28/18 1755 (Pediatric,[place],NICU) Effective making progress toward outcome * Plan of Care - Fatimah Guillen RN - 08/28/2018 6:03 PM EST Problem: Patient Care Overview Goal: Plan of Care Review Outcome: Ongoing (Interventions Implemented as Appropriate) 08/28/1844208/28/18823 Plan of Care Review Progress progress toward [...] Promotion attachment promoted;positive reinforcement provided;parent-child separation minimized;rooming-in promoted;tnna-zd-kyvx contact encouraged -- Intervention: Prevent/Manage DVT/VTE Risk [...] Problems Present ( Vaginal Delivery) none Problem: (Pediatric,,NICU) Goal: Identify Related Risk Factors and Signs [...] was in stable condition after delivery. The infant remained in stable condition at the bedside. Dr. Quintero, Attending Ob-Maintenance Assistant, was present for the delivery with no conflicting clinical responsibilities. Kristin Vela MD PGY-1 Information for the patient's : Carissa Mcfadden [[id number]] DELIVERY SUMMARY FOR Carissa Mcfadden (please note [...] Dilation complete date/time: 08/27/201848 Start pushing date/time: 08/27/201848 Mother Delivery Episiotomy: None Perineal lacerations: None Periurethral laceration: right Repaired: Yes Labial laceration: bilateral Repaired: Yes Vaginal delivery est. blood loss (mL): 400 Surgical or additional est. blood loss (mL): 0 Combined est. blood loss (mL): 400 Repair suture: Synthetic Delayed Absorbable Number of repair packets: 3 Delivery ([place]) Delivery Date: 08/27/18 Delivery Date: 6:55:00 AM [...] MD Other Personnel: Provider Role Emely Subramanian application integration engineer Nurse Jacob Quintero MD Fiberglass Container Winding Operator Jazmin Gallo RN Delivery Assist Elizabeth Covarrubias MD [...] syringe Resuscitation Comment: dried and stimulated Maternal [place] Feeding and Skin to Skin Maternal Choice for [place](s) Feeding on Admission: Skin to skin initiated date/time: 08/27/2018 0655 [place] Medications Medications Given: vitamin K, erythromycin Measurements No [...] Report (08/27/2018 8:55 AM EDT) Final Diagnosis [id number] ? Location: ; [facility]; The signing pathologist has (i) [...] Rei Hanson Verified: ??08/31/2018 ?Pathologist Performed at: ??-[facility] Dept. of Pathology, [place], [place] CLINICAL INFORMATION Specimen Submitted: A - Placenta Provided clinical history/diagnosis : ?? Labor, term, GBS positive status post treatment completion. SPECIMEN PROCESSING A - Labeled/Fixative: Placenta, fresh. Quantity/Size/Abdoul ght: Single, 21.0 x 18.0 x 1.8 cm, 523 g. Integrity: Intact. Shape: Ovoid. Membranes: ? - Insertion: 100 percent marginal ??. ? - Color and Clarity: [place]-red and clear. Cord: ? - Size: 2.0 [...] percent of the parenchymal volume. Sections/Processi ng: Vice President Mission Integration sections in 11 cassettes as follows: ? A1: ??Membrane roll ? A2: ??Proximal and distal cord ? A3-A8: ??Full thickness parenchyma ? A9-A11: ??Parenchymal lesions ??ejr 08/31/2018 2:02 PM EST [facility] TISSUE SPECIMEN FROM PLACENTA / Unknown 08/27/2018 8:55 AM EDT 08/27/2018 8:55 AM EDT Kristin Vela MD PATHOLOGY/CYTOLOG Y ORDERABLES [facility] [place] [address] * Specimen to Pathology (08/27/2018 8:55 AM EDT) AP Specimen 08/27/2018 8:55 AM EDT 08/27/2018 8:55 AM EDT Narrative [facility] - 08/27/2018 8:55 AM EDT Specimen requisition ordered. ??Separate Pathology report to follow Jacob Quintero MD PATHOLOGY/CYTOLOGY O REBA [facility] [place] [address] * (ABNORMAL) Differential, Automated (08/27/2018 5:00 AM EDT) Neutrophil % 85.4 % [facility] Neutrophil Absolute 17.77(H) 1.70 - 6.10 x10(3)/mc L [facility] Lymph % 10.3 % [facility] Lymphocytes Abs 2.1 0.9 - 3.2 x10(3)/[facility] Monocyte % 3.1 % [facility] Monocyte Abs 0.6 0.3 - 0.9 x10(3)/[facility] Eos % 0.0 % [facility] Eosinophils Abs 0.0 0.0 - 0.4 x10(3)/[facility] Basophil % 0.3 % [facility] Baso Absolute 0.1 0.0 - 0.1 x10(3)/[facility] Immature Gran % 0.90 % [facility] Comment: Immature granulocytes(IG's)percentage and absolute count will include metamyelocytes, myelocytes, and promyelocytes. Blood smears from CBCs yielding IG's will be scanned manually for concordance. If this scan disagrees with the automated IG or if promyelocytes are noted, a manual differential will be performed. Immature Gran Absolute 0.19(H) 0.00 - 0.04 x10(3)/ L [facility] Blood specimen (specimen) 08/27/2018 5:00 AM EDT 08/27/2018 5:30 AM EDT Narrative Resulting Agency Comment Spec In Lab Kristin Vela MD HEMATOLOGY ORDERA BLES [facility] [place] [address] * (ABNORMAL) Hemogram (08/27/2018 5:00 AM EDT) White Blood Cell 20.8(H) 4.0 - 9.5 x10(3)/mc L [facility] Red Blood Cell 4.89 4.00 - 5.21 x10(6)/mc L [facility] Hemoglobin 12.3 11.7 - 15.5 gm/dL [facility] Hematocrit 36.3 35.7 - 45.8 % [facility] Mean Cell Volume 74.2(L) 82.6 - 94.4 fL [facility] Mean Cell Hemoglobin 25.2(L) 27.1 - 32.0 pg [facility] Mean Cell Hemoglobin Concentration 33.9 31.7 - 35.0 gm/dL [facility] Platelet 305 145 - 357 x10(3)/mc L [facility] RDW Standard Deviation 38.3 37.0 - 46.0 fL [facility] RDW coefficient of variation 14.5(H) 11.5 - 14.1 % [facility] Mean Platelet Volume 8.5 7.6 - 12.9 fL [facility] NRBC% auto 0.0 % [facility] NRBC Absolute 0.000 0.000 - 0.000 x10(3)/mc L [facility] Blood specimen (specimen) 08/27/2018 5:00 AM EDT 08/27/2018 5:30 AM EDT Narrative Resulting Agency Comment Spec In Lab Kristin Vela MD HEMATOLOGY ORDERA BLES [facility] [place] [address] documented in this encounter Visit Diagnoses Diagnosis Desires tubal ligation Tubal ligation status Encounter for trial of labor documented in this encounter Admitting Diagnoses Diagnosis Encounter for trial of labor documented in this encounter Administered Medications Inactive Administered Medications - up to 3 most recent administrations Medication Order MAR Action Action Date Dose Rate Site ceFAZolin (ANCEF) 2g in dextrose 5% 100 mL 2 g, Intravenous, ONCE, 1 dose, On 08/27/18 at 0515, Administer over 30 Minutes, Indication for (Active or Suspected): Prophylaxis New Bag 08/27/2018 5:18 AM EDT 2 g 200 mL/ hr docusate sodium (COLACE) capsule 100 mg 100 mg, Oral, 2 TIMES DAILY, First dose on 08/27/18 at 0915, Until Discontinued, Routine Given 08/28/2018 11:38 AM EST 100 mg Given 08/27/2018 8:56 PM EDT 100 mg Given 08/27/2018 10:35 AM EDT 100 mg fentaNYL (PF) 50 mcg/mL injection 1 dose, Starting on 08/27/18 at 0711, Until 08/27/18 at 0713, JAZMIN GALLO: cabinet override fentaNYL (PF) 50mcg/mL injection 75 mcg, Intravenous, ONCE, 1 dose, On 08/27/18 at 0745, If given subcutaneously, do not administer more than 2 mL as a single injection., Routine Given 08/27/2018 7:13 AM EDT 75 mcg glycerin-witch meghan (TUCKS) 12.5-50 % pads Topical [...] Given 08/27/2018 10:35 AM EDT 600 mg oxytocin (PITOCIN) 30 units in sodium chloride 0.9% 500 mL infusion 75 mL/hr, Intravenous, ONCE, 1 dose, On 08/27/18 at 0915, ., Routine New Bag 08/27/2018 6:57 AM EDT 500 mL/hr 500 mL/hr documented in this encounter Active and Recently [...] 0518 (New Bag - Provider: Emely Subramanian, RN)0548 (Due: Stopped - Provider: Emely Subramanian RN) docusate sodium (COLACE) capsule 100 mg 100 mg, Oral, 2 TIMES DAILY, First dose on 08/27/18 at 0915, Until Discontinued, Routine 1035 (Given - Provider: Monica Mancilla RN)2055 (Given - Provider: Tamie Olguin RN) 1138 (Given - Provider: Melanie Leyva RN)2124 (Not Given - Provider: Nusrat Ocampo RN - Reason: Patient/family refused) 0900 (Due) fentaNYL (PF) 50mcg/mL injection (COMPLETED) 75 mcg, Intravenous, ONCE, 1 dose, On 08/27/18 at 0745, If given subcutaneously, do not administer more than 2 mL as a single injection., Routine 0713 (Given - Provider: Jazmin Gallo, HANG) oxytocin (PITOCIN) 30 units in [...] at 1347 2132 (Given - Provider: Nusrat Ocampo RN) ibuprofen (ADVIL;MOTRIN) tablet 600 mg 600 mg, Oral, EVERY 6 HOURS PRN, Starting on 08/27/18 at 0855, Until 08/29/18 at 1347, Pain, - If ordered with other PRN pain medications give Ibuprofen first, then acetaminophen, then additional agents according to the pain scale., Routine 1035 (Given - Provider: Monica Mancilla RN) 0327 (Given - Provider: Tamie Olguin RN)1546 (Given - Provider: Fatimah Guillen, HANG) documented in this encounter Care Teams Button Sewing Machine Operator Relationship Specialty Start Date End Date None None PCP - General 02/02/18 10/11/19 documented as of this encounter
--- OUTSIDE RECORDS SUMMARY | 2024-06-07 22:49 | XMS_ITS | Encounter Summary ---
Author Organization [facility] [place] [address] Care Team Providers Care Publicity Person Name Role Phone None Primary Care Provider Unavailabl e Encounter Details Date Type Department Care Team (Late st Contact Info) Description 07/16/2011 Orders Only Radiology and Cardiology Results [address] [place] [address] Apd Conversion, Results Provider, Social [...] Procedure Name Priority Date/Time Associated Diagnosis Comments HEPATITIS B SURFACE ANTIGEN Routine 07/16/2011 1:49 PM EDT documented in this encounter Results * (ABNORMAL) Hepatitis B Surface Antigen (07/16/2011 1:49 PM EDT) Hepatitis B Surface Antigen Negative(E xternal Lab) Negative TANESHA FENTON CONVERSION 07/16/2011 1:49 PM EDT Results Provider Apd Conversion MD ADALID CAMARGO ORDERABLES TANESHA FENTON CONVERSION documented in this encounter Visit Diagnoses Not on filedocumented in this encounter Care Teams Publicity Person Relationship Specialty Start Date End Date None None PCP - General 02/02/18 10/11/19 documented as of this encounter
--- OUTSIDE RECORDS SUMMARY | 2024-06-07 22:49 | XMS_ITS | Encounter Summary ---
Author Organization [facility] Address [facility] [place] [address] Care Team Providers Care Harvesting Manager Name Role Phone None Primary Care Provider Unavailabl e Encounter Details Date Type Department Care Team (Late st Contact Info) Description 07/16/2011 Orders Only Radiology and Cardiology Results [address] [place] [address] Apd Conversion, Results Provider, Social [...] Procedure Name Priority Date/Time Associated Diagnosis Comments RPR Routine 07/16/2011 1:49 PM EDT documented in this encounter Results * (ABNORMAL) RPR (07/16/2011 1:49 PM EDT) RPR (ARU) NON REACTIVE(E xternal Lab) NONREACTIVE TANESHA FENTON CONVERSION 07/16/2011 1:49 PM EDT Results Provider Apd Conversion IMMUN OLOGDurga ORDERABLES TANESHA CONKLIN DAY CONVERSION documented in this encounter Visit Diagnoses Not on filedocumented in this encounter Care Teams Harvesting Manager Relationship Specialty Start Date End Date None None PCP - General 02/02/18 10/11/19 documented as of this encounter
--- OUTSIDE RECORDS SUMMARY | 2024-06-07 22:49 | XMS_ITS | Clinical Summary ---
Author Organization [facility] Address [facility] [place] [address] Care Team Providers Care Kitchen Helper Name Role Phone Unavailable Primary Care Provider Unavailabl e Allergies Active Allergy Reactions Criticality Noted Date Comments Amoxicillin-Pot Clavulanate Hives 07/04/20 12 As a 4 year old Medications Medication Sig Dispensed Refills Start Date End Date Status acetaminophen (TYLENOL) 325 mg tablet Take 650 mg by mouth every 4 hours as needed. Active ibuprofen (ADVIL;MOTRIN) 200 mg Tablet Take 3 tablets by mouth every 6 hours as needed for Pain. 30 tablet 08/29/2018 Active Active Problems Problem Noted Date Diagnosed Date Encounter for trial of labor 08/27/2018 Positive GBS test 07/29/2018 Overview (08/10/2018): Treat in labor if labors - will plan to do cefazolin JAB 07/27/2018 Desires tubal ligation 05/10/2018 Overview (06/30/2018): Desires tubal. Federal consent signed 05/09/2018 and placed in scanned docs. Let her know that this may not be possible if she has a lot of scar tissue. Weight loss in 05/10/2018 Overview (05/10/2018): See 05/09/2018 notes for recommendation. [ ] Recommend 11-20 lb weight gain H/O section complicating 01/23 Overview (06/07/2018): 2 prior LTCS. 1st on [place] for failure to progress during IOL (got to 1 cm per patient). 2nd at [facility], some adhesions on right aspect of uterus (operative note reviewed, in scanned docs, RHE). TOLAC Counseling done 06/02. Patient still undecided, calculator 35%. Strongly leaning towards rCS, especially if she is still at 39 weeks. -EOF Morbid obesity with BMI of 40.0-44.9, adult 01/23 Overview (02/02/2018): Early 1 hr Encounter for supervision of normal in third trimester 02/02/2018 Overview (07/01/2018): Team/Centering Blue POD Delivery Plan Repeat C/S 08/26 (considering TOLAC if goes into labor) Referring provider FIRST TRIMESTER NOB labs Normal Aneuploidy screen [place] low risk CF screen Normal in prior preg per pt SMA screen Desires Other: early GCT, aspirin, TSH Early 1 hr ordered FISH PACKER/Behavioral Health consult/ATP MFM/genetics Genetics for [place] SECOND TRIMESTER 18-20 week US scan Unilateral GUIDE PLANT, otherwise normal morph, male fetus, anterior placenta Tubal paper signed Signed 05/09 THIRD TRIMESTER 28 week labs 12.135, 1hr 84 testing SBIRT GBS 36 week STD labs Contraception Tubal papers signed Tubal if c/s. Medicaid consent signed. nutrition Breast Child education preferences Professional Housing Consultant/ issues/ Circumcision Vanita Planning IMMUNIZATIONS Influenza TDAP Done : Varicella, MMR, Pneumovax *Aspirin High risk >= 2 medium risk TSH History preeclampsia or gestational hypertension Chronic hypertension Multifetal gestation Pre-gestational diabetes Renal disease Systemic lupus AntiPhospholipidAntibodySyndrome Nulliparity Age >= 35 years >10 year interval between BMI >= 30 kg/m2 ethnicity Mother or sister with preeclampsia Previous with IUGR Symptoms Personal history of thyroid disease or TPO antibodies Family history Goiter Autoimmune disease Type I diabetes Infertility or recurrent miscarriage BMI >40 kg/m2 Immigrant from areas of moderate to severe iodine deficiency Chronic pelvic pain in female 07/04/2012 Overview (02/02/2018): Was told she has a a lot of scar tissue when she had her ectopic and her c- section. Immunizations Name Administration Dates Next Due Influenza Quadrivalent, Preservative Free 2017 Tdap 06/30/2018 Family History Medical History Relation Comments Other Nephew Degos disease Relation Status Comments Nephew Social History Tobacco Use Types Packs/Day Years Used Date Smoking Tobacco: Former Cigarettes 0.5 5 2 - 2011 Smokeless Tobacco: Never Alcohol Use Standard Drinks/Week Comments No 0 (1 standard drink = 0.6 oz pur e alcohol) Sex and Gender Information Value Date Recorded Sex Assigned at Not on file Gender Identity Not on file Sexual Orientation Not on file Last Filed Vital Signs Vital Sign Reading [...] Mass Index 42.02 05/12/2021 2:26 PM EDT Plan of Treatment Health Maintenance Due Date Last Done Comments Hepatitis B vaccine (0-59 yrs) (1) 12/26/2003 Covid-19 Vaccine (1 - 2022-24 season) 2023 Influenza (Flu) vaccine (1 o f 1 - Influenza standard series) 06/25/2024 07/25/2018 HPV test 04/15/2026 04/15/2021 PAP Smear 04/15/2026 04/15/2021, 07/16/2011 Tetanus vaccine 06/30/2028 06/30/2018 HIV screen Completed 02/02/2018 Tdap adult Completed 06/30/2018 Hepatitis C Screening Completed 05/12/2021 Lipid Screening Discontinued 05/12/2021 Procedures Procedure Name Priority Date/Time Associated Diagnosis Comments LIPID PANEL (REFLEX DIRECT LDL) Routine 05/12/2021 3:55 PM EDT Adult BMI 40.0-44.9 kg/sq m HC HEPATITIS C ANTIBODY Routine 05/12/2021 3:55 PM EDT Healthcare maintenance EXTERNAL PAP SMEAR RESULT PANEL Routine 04/15/2021 3:19 PM EDT HIV SCREEN, 4TH GENERATION ([facility]P/APD/NLH) Routine 02/02/2018 12:07 PM EDT Encounter for related examination in first trimester from Last 3 Months or Most Recently Relevant to Health Maintenance Results * Hepatitis C Antibody (05/12/2021 3:55 PM EDT) Hepatitis C Antibody Negative Negative [facility] Blood 05/12/2021 3:55 PM EDT 05/12/2021 4:06 PM EDT Narrative Resulting Agency Comment Spec In Lab Vani Maldonado MD CHEMISTRY ORDERABL ES Performing Organization Address City/State/[facility] Co de Phone Number [facility] [place] [address] * Lipid Panel (Reflex Direct LDL) (05/12/2021 3:55 PM EDT) Cholesterol, Total 229 mg/dL [facility] Comment: Lower Risk: <200 mg/dL Average Risk: 200-239 mg/dL Higher Risk: >ri=438 mg/dL Triglyceride 134 mg/dL [facility] Comment: Average Risk/Lower Risk: <150 mg/dL Borderline High Risk: 150-199 mg/dL High Risk: 200-499 mg/dL Very High Risk: >hh=877 mg/dL HDL Cholesterol 43 mg/dL [facility] Comment: Males: ?? Higher Risk: <40 mg/dL Females: ?? Higher Risk: <50 mg/dL LDL Cholesterol 159 mg/dL [facility] Comment: Lowest Risk: <100 mg/dL Lower Risk: 100-129 mg/dL Borderline High Risk: 130-159 mg/dL High Risk: 160-189 mg/dL Very High Risk: >tj=112 mg/dL Cholesterol/HDL Ratio 5.3 ratio [facility] Lipid Interpretation See Note [facility] Comment: Lipid management should be guided by a patient? s ASCVD risk, goals and preferences. ACC/AHA Guidelines recommend high intensity statin if clinical ASCVD or LDL greater than or equal to 190 mg/dL. http://RateElert.com/GAE-IIZ-Aqjpngdyf Adults aged 40-75 with LDL 70-189 mg/dL should have their 10 year ASCVD risk estimated with the ACC/AHA ASCVD risk estimator paperboard boxes http://tools.acc.org/OZUWK-Sjjn-Ziuwhhlki/ Statin should be discussed if risk greater [...] Lab Vani Maldonado MD CHEMISTRY ORDERABL ES [facility] [place] [address] * (ABNORMAL) External Pap Smear (04/15/2021 3:19 PM EDT) External PAP Smear Negative(E xternal Lab) EXTERNAL LAB HPV (RESULT) Negative(E xternal Lab) EXTERNAL LAB 04/15/2021 3:19 PM EDT Historical Provider EXTERNAL LAB [facility] EXTERNAL LAB * HIV Screen, 4th Generation (02/02/2018 12:07 PM EDT) HIV Ab/Ag Screen Negative Negative [facility] Comment: This 4th Generation HIV [...] In Lab Yael Maya MD CHEMISTRY ORDERABLES [facility] [place] [address] from Last 3 Months or Most Recently Relevant to Health Maintenance Advance Directives * Full Code (Latest Code Status on File) Date Activated Date Inactivated Comments 08/27/2018 6:37 AM 08/29/2018 1:47 PM Question Answer Comments Does patient have capacity to make decision: Yes
--- OUTSIDE RECORDS SUMMARY | 2024-06-07 22:49 | XMS_ITS | Encounter Summary ---
Author Organization [facility] [place] [address] Care Team Providers Care Camp Dishwasher Name Role Phone None Primary Care Provider Unavailabl e Reason for Visit * Reason Onset Date Comments Results 02/15/2018 Encounter Details Date Type Department Care Team (Late st Contact Info) Description 02/15/2018 Telephone Obstetrics [place] [address] Jaimie Burr, [facility] [address] OBSTETRICS [place] [address] Results Social History Tobacco Use Types Packs/Day Years [...] encounter Miscellaneous Notes * Telephone Encounter - Jaimie Burr, [facility] - 02/15/2018 11:55 AM EDT Genetic Counseling Telephone Note Emily Mcfadden opted for cell-free DNA aneuploidy screening with the Barlow Test on February 08, 2018. I informed Emily Mcfadden of the following results by phone today: Barlow Test: Condition Result Probability Trisomy 21 Low probability Less than 1/10,000 Trisomy 18 Low probability Less than 1/10,000 Trisomy 13 Low probability Less than 1/10,000 Monosomy X Sex Chromosome Aneuploidy Panel Inconclusive Inconclusive Sex Male >99% The Barlow Test is a type of cell-free DNA screening for aneuploidy. I reminded Emily that Barlow is a screening test for a limited number of chromosomes and that diagnostic testing remains an option. Emily was also advised to discuss a morphology ultrasound at 18 to 20 weeks with her provider, and to correlate sex. The laboratory report will be scanned into eD-H. Genetic Carrier Screening: I informed Emily that her SMA carrier screen is negative, significantly decreasing the chance she is a carrier. Screening for her is not indicated. I also informed Emily that her ferritin levels are normal in the context of a low MCV (78.9). We discussed the possibility of carrier status for thalassemia as a cause. Given the couple's ancestry, the risk for thalassemia to the fetus is low. Hemoglobin electrophoresis would be the next step should Emily wish to pursue more screening. It is difficult for Emily to return for blood work and shesuggested going to [facility]. An external order was placed for [facility] and will be mailed to Emily. documented in this encounter Plan of Treatment Not on file documented as of this encounter Visit Diagnoses Diagnosis Microcytosis Other abnormality of red blood cells documented in this encounter Care Teams Camp Dishwasher Relationship Specialty Start Date End Date None None PCP - General 02/02/18 10/11/19 documented as of this encounter
--- OUTSIDE RECORDS SUMMARY | 2024-06-07 22:49 | XMS_ITS | Encounter Summary ---
Author Organization [facility] [place] [address] Care Team Providers Care Manager Party Name Role Phone None Primary Care Provider Unavailabl e Reason for Visit * Reason Comments Routine Visit Encounter Details Date Type Department Care Team (Late st Contact Info) Description 07/25/2018 3:40 PM EDT Routine Obstetrics [place] [address] Zaynab Arndt, [facility] [place] [address] GA: 35w4d Social History Tobacco Use Types Packs/Day Years [...] Sign Reading Time Taken Comments Blood Pressure 130/80 07/25/2018 3:40 PM EDT Pulse - - Temperature - - Respiratory Rate - - Oxygen Saturation - - Inhaled Oxygen Concentration - - Weight 109.3 kg (241 lb) 07/25/2018 3:40 PM EDT Height - - Body Mass Index 41.37 02/02/2018 10:56 AM EDT documented in this encounter Progress Notes * Paige Ly CCMA - 07/25/2018 3:40 PM EDT The patient denies travel by her or her partner to an area with endemic Zika infection including [place]. The patient was given two booklets; Going Home with Your [place] and Anesthesia Guidelines. A Laborinstructions term pamphlet, Group B Streptococcus Informational Sheet, and Circumcision Letter (if applicable) was also given. The patient received additional pamphlets entitled Position and Tips for Successful and [facility] Services. The importance of the materials was discussed and the patient was encouraged to read the information and direct questions to the provider. * Zaynab Arndt CNM - 07/25/2018 3:40 PM EDT 35w4d here for routine ob visit here with FOB and their two kids Reports +FM, denies LOF/VB Tearful about BP today, higher than it has been Denies visual changes, epigastric pain, edema, or headaches, reassurance provided Tightness on right side of abdomen intermittently, no regular ctxs Chronic pelvic pain, right lower hip, worse at end of , worse for past 4 wks. Tylenol. Suggested heat. Has not yet picked up the hand splint yet, wrists are ok Flu vaccine given today Reviewed SAMANTHA and when to call Really wants to see LAURIE on the labor floor, noted on pink sticky GBS collected today Will get growth US for unreliable fundal height, difficult Javier's today and obesity in , feels breech today RTO after US, sooner PRN documented in this encounter Plan of Treatment Not on file documented as of this encounter Procedures Procedure Name Priority Date/Time Associated Diagnosis Comments GROUP B STREPTOCOCCUS SCREEN Routine 07/25/2018 5:09 PM EDT GROUP B STREP CULTURE SCREEN Routine 07/25/2018 5:09 PM EDT Encounter for supervision of other normal in third trimester documented in this encounter Results * US OB Follow Up (08/10/2018 12:50 PM EDT) Anatomical Region Laterality Modality Pelvis, Abdomen Ultrasound 08/10/2018 12:3 3 PM EDT Impressions 08/10/2018 1:27 PM EDT 3rd Trimester Summary Single intrauterine with a gestational age of 37w 6d based on LMP ??(11/18/17). Composite age based on the current ultrasound alone is 36w 2d. Estimated weight corresponds to the 46th percentile for 37w 6d. Current growth parameters are consistent with prior dating indicating normal growth. Amniotic fluid volume is appropriate for gestational age. Anatomical survey is limited due to the late gestational age. ?? No structural abnormalities visualized. Visualization limited due to maternal body habitus (BMI = 41.36). ? Melanie Blanchard MD Electronically Signed Final Report ?? 08/10/2018 01:27 pm Narrative 08/10/2018 1:27 PM EDT OBSTETRICS REPORT ? (Signed Final 08/10/2018 01:27 pm) PATIENT INFO: ID #: ? [id number] ?: ??[birth year] (32 yrs) Name: ? ANIYAH B ? Visit Date: 08/10/2018 12:33 pm ? MCKENNA- ? SAMMI PERFORMED BY: Performed By: ? Melonie Fox RDMS Attending: ?Santo FAITH, Melanie Hernandez Referred By: ?ZAYNAB ARNDT Location: ? [place] SERVICE(S) PROVIDED: ??UOBFOL - Efw - Growth ??- [place] - [id number] ?[id number] INDICATIONS: ??37 weeks gestation of ?Z3A.37 ??follow up growth, presentation, BECKY OB HISTORY: Blood ?Height: ??5'4 ?Weight (lb): 241 ? BMI: ??41.36 Type: : ?4 ? Term: ?? 2 ? SAB: ?? 1 Living: ? 2 EVALUATION: Num Of Fetuses: ? 1 Heart ? 131 Rate(bpm): Cardiac Activity: ?? Observed, normal rhythm Presentation: ? Cephalic Placenta: ? Anterior P. Cord Insertion: ??Within Normal Limits Amniotic Fluid BECKY FV: ?Appropriate for gestational age BECKY Sum(cm) ? Largest Pocket(cm) 10.19 ? 3.26 RUQ(cm) ? RLQ(cm) ? LUQ(cm) ?LLQ(cm) 3.03 ?3.26 ?1.82 ? 2.08 --------- BIOMETRY: --------- BPD: ?88.8 ??mm ? G.Age: ?? 35w 6d ?21 ??% OFD: ? 112.6 ??mm HC: ?324.8 ??mm ? G.Age: ?? 36w 5d ?10 ??% AC: ?335.2 ??mm ? G.Age: ?? 37w 3d ?55 ??% FL: ? 68.7 ??mm ? G.Age: ?? 35w 2d ? 5 ??% HUM: ?60.2 ??mm ? G.Age: ?? 35w 0d ?20 ??% CI: ?78.9 ??% ? 70 - 86 FL/HC: ? 21.2 ??% ? 20.9 - 22.7 HC/AC: ? 0.97 ?0.92 - 1.05 FL/BPD: ?77.4 ??% ? 71 - 87 FL/AC: ? 20.5 ??% ? 20 - 24 Est. FW: ?2998 ?? gm ?? 6 lb 10 oz ? 46 ??% GESTATIONAL AGE: LMP: ? 37w 6d ?Date: ??11/18/17 ? BRIGHT: ?? 08/25/18 U/S Today: ? 36w 2d ?BRIGHT: ?? 09/05/18 Best: ?37w 6d ?? Det. By: ??LMP ??(11/18/17) ?BRIGHT: ?? 08/25/18 -------- ANATOMY: -------- Cranium: ? Limited views Cavum: ? Not visualized due to late gestational a Ventricles: ?Not visualized due to late gestational a Choroid Plexus: ?Not visualized due to late gestational a Cerebellum: ?Not visualized due to late gestational a Posterior Fossa: ? Not visualized due to late gestational a Nuchal Fold: ? Not evaluated at this gestational age Face: ?Limited views Heart: ? Limited Views RVOT: ?Limited views LVOT: ?Limited views Diaphragm: ? Visualized Stomach: ? Visualized Abdomen: ? Limited Views Abdominal Wall: ?Not visualized due to late gestational a Cord Vessels: ?Limited Views Kidneys: ? Visualized Bladder: ? Visualized Spine: ? Limited views Upper Extremities: ? Limited views Lower Extremities: ? Limited views CERVIX UTERUS ADNEXA: Left Ovary Not visualized Right Ovary Not visualized Procedure Note Melanie Blanchard MD - 08/10/2018 OBSTETRICS REPORT (Signed Final 08/10/2018 01:27 pm) PATIENT INFO: ID #: [id number] : [id number] (32 yrs) Name: ANIYAH Rodriguez Visit Date: 08/10/2018 12:33 pm MCKENNALara BATISTABO PERFORMED BY: Performed By: Melonie Fox RDMS Attending: Melanie Blanchard MD Referred By: ZAYNAB ARNDT Location: [place] SERVICE(S) PROVIDED: UOBFOL - Efw - Growth - [place] - [id number] INDICATIONS: 37 weeks gestation of Z3A.37 follow up growth, presentation, BECKY OB HISTORY: Blood Height: 5'4 Weight (lb): 241 BMI: 41.36 Type: : 4 Term: 2 SAB: 1 Livin EVALUATION: Num Of Fetuses: 1 Heart 131 Rate(bpm): Cardiac Activity: Observed, normal rhythm Presentation: Cephalic Placenta: Anterior P. Cord Insertion: Within Normal Limits Amniotic Fluid BECKY FV: Appropriate for gestational age BECKY Sum(cm) Largest Pocket(cm) 10.19 3.26 RUQ(cm) RLQ(cm) LUQ(cm) LLQ(cm) 3.03 3.26 1.82 2.08 --------- BIOMETRY: --------- BPD: 88.8 mm G.Age: 35w 6d 21 % OFD: 112.6 mm HC: 324.8 mm G.Age: 36w 5d 10 % AC: 335.2 mm G.Age: 37w 3d 55 % FL: 68.7 mm G.Age: 35w 2d 5 % HUM: 60.2 mm G.Age: 35w 0d 20 % CI: 78.9 % 70 - 86 FL/HC: 21.2 % 20.9 - 22.7 HC/AC: 0.97 0.92 - 1.05 FL/BPD: 77.4 % 71 - 87 FL/AC: 20.5 % 20 - 24 Est. FW: 2998 gm 6 lb 10 oz 46 % GESTATIONAL AGE: LMP: 37w 6d Date: 11/18/17 BRIGHT: 08/25/18 U/S Today: 36w 2d BRIGHT: 09/05/18 Best: 37w 6d Det. By: LMP (11/18/17) BRIGHT: 08/25/18 -------- ANATOMY: -------- Cranium: Limited views Cavum: Not visualized due to late gestational a Ventricles: Not visualized due to late gestational a Choroid Plexus: Not visualized due to late gestational a Cerebellum: Not visualized due to late gestational a Posterior Fossa: Not visualized due to late gestational a Nuchal Fold: Not evaluated at this gestational age Face: Limited views Heart: Limited Views RVOT: Limited views LVOT: Limited views Diaphragm: Visualized Stomach: Visualized Abdomen: Limited Views Abdominal Wall: Not visualized due to late gestational a Cord Vessels: Limited Views Kidneys: Visualized Bladder: Visualized Spine: Limited views Upper Extremities: Limited views Lower Extremities: Limited views CERVIX UTERUS ADNEXA: Left Ovary Not visualized Right Ovary Not visualized IMPRESSION 3rd Trimester Summary Single intrauterine with a gestational age of 37w 6d based on LMP (11/18/17). Composite age based on the current ultrasound alone is 36w 2d. Estimated weight corresponds to the 46th percentile for 37w 6d. Current growth parameters are consistent with prior dating indicating normal growth. Amniotic fluid volume is appropriate for gestational age. Anatomical survey is limited due to the late gestational age. No structural abnormalities visualized. Visualization limited due to maternal body habitus (BMI = 41.36). Melanie Blanchard MD Electronically Signed Final Report 08/10/2018 01:27 pm Zaynab Arndt CNM IMG US OB ORDERABLE S * Group B Streptococcus Screen (07/25/2018 5:09 PM EDT) GBS Screen Pos [facility] Pooled specimen from vaginal introitus and rectal swab (specimen) 07/25/2018 5:09 PM EDT 07/25/2018 5:09 PM EDT Comment:Penicillin Allergy?- >No Narrative Resulting Agency Comment Spec In Lab Zaynab Arndt CNM MICROBIOLOGY - GENE RAL ORDERABLES Performing Organization Address City/State/[facility] Co de Phone Number [facility] [place] [address] * (ABNORMAL) Group B Strep Culture Screen (07/25/2018 5:09 PM EDT) Group B Streptococcus Culture Beta Hemolytic Streptococci, Group B isolated(A) [facility] Organism Beta Hemolytic Streptococci, Group B(A) [facility] Pooled specimen from vaginal introitus and rectal swab (specimen) 07/25/2018 5:09 PM EDT 07/25/2018 5:09 PM EDT Comment:PENICILLIN ALLERGY?- >NO Narrative Resulting Agency Comment Spec In Lab Zaynab Arndt CNM MICROBIOLOGY - GENE RAL ORDERABLES [facility] [place] [address] documented in this encounter Visit Diagnoses Diagnosis Encounter for supervision of other normal in third trimester- Primary Encounter for supervision of other normal in third trimester documented in this encounter Care Teams Manager Party Relationship Specialty Start Date End Date None None PCP - General 02/02/18 10/11/19 documented as of this encounter
--- OUTSIDE RECORDS SUMMARY | 2024-06-07 22:49 | XMS_ITS | Encounter Summary ---
Author Organization [facility] Address [facility] [place] [address] Care Team Providers Care Research Test Engine Evaluator Name Role Phone Oscar Garduno MD Primary Care Provider [phone] Encounter Details Date Type Department Care Team (Late st Contact Info) Description 05/26/2021 Telephone Internal Medicine at [facility] [address] [place] [phone] Alana Kenny Social History Tobacco Use Types Packs/Day Years Used Date Smoking Tobacco: Former Cigarettes 0.5 5 2 007 - 2012 Smokeless Tobacco: Never Alcohol Use Standard Drinks/Week Comments No 0 (1 standard drink = 0.6 oz pur e alcohol) Sex and Gender Information Value Date Recorded Sex Assigned at Not on file Gender Identity Not on file Sexual Orientation Not on file documented as of this encounter Miscellaneous Notes * Telephone Encounter - Alana Kenny - 05/26/2021 3:15 PM EDT Good Afternoon, Clinical payroll secretary called patient with no answer. Clinical payroll secretary was unable to leave a voicemail due to mailbox being full and could not accept messages at this time. Clinical payroll secretary was calling to inquire if the patient would like schedule referral to nutritional services at [facility] with Tia Crawford. Thank you, Alana documented in this encounter Plan of Treatment Not on file documented as of this encounter Visit Diagnoses Not on filedocumented in this encounter Care Teams Research Test Engine Evaluator Relationship Specialty Start Date End Date Oscar Garduno MD [facility] [place] [address] PCP - General General Internal Medicine 05/07/2104/24 documented as of this encounter
--- OUTSIDE RECORDS SUMMARY | 2024-06-07 22:49 | XMS_ITS | Encounter Summary ---
Author Organization [facility] Address [facility] [place] [address] Care Team Providers Care Basket Maker Name Role Phone Oscar Garduno MD Primary Care Provider [phone] Encounter Details Date Type Department Care Team (Late st Contact Info) Description 05/12/2021 External Results Internal Medicine at [facility] [address] [place] [id number] Angeles Nleson, [facility] Social History Tobacco Use Types Packs/Day Years [...] Procedure Name Priority Date/Time Associated Diagnosis Comments EXTERNAL PAP SMEAR RESULT PANEL Routine 04/15/2021 3:19 PM EDT documented in this encounter Results * (ABNORMAL) External Pap Smear (04/15/2021 3:19 PM EDT) External PAP Smear Negative(E xternal Lab) EXTERNAL LAB HPV (RESULT) Negative(E xternal Lab) EXTERNAL LAB 04/15/2021 3:19 PM EDT Historical Provider EXTERNAL LAB [facility] EXTERNAL LAB documented in this encounter Visit Diagnoses Not on filedocumented in this encounter Care Teams Basket Maker Relationship Specialty Start Date End Date Oscar Garduno MD [facility] [place] [address] PCP - General General Internal Medicine 05/07/2104/24 documented as of this encounter
--- OUTSIDE RECORDS SUMMARY | 2024-06-07 22:49 | XMS_ITS | Encounter Summary ---
Author Organization [facility] [place] [address] Care Team Providers Care Trim Machine Operator Name Role Phone None Primary Care Provider Unavailabl e Reason for Visit * Reason Comments Genetic Screening * Consultation (Routine) - Closed Specialty Diagnoses / Procedures Referred By Contac t Referred To Contact Obstetrics and Gynecology Diagnoses Encounter for supervision of other normal in first trimester Yael Maya MD [facility] [address] [place] [address] [facility] [employer] [place] [address] Referral ID Status Reason Start Date Expiration Date V isits Requested Visits Authorized [id number] Closed Consult, Test & Treat 02/02/2018 02/02/2019 1 1 Encounter Details Date Type Department Care Team (Late st Contact Info) Description 02/08/2018 8:45 AM EDT Office Visit Obstetrics [place] [phone] Jaimie Burr, [facility] OBSTETRICS & [place] [address] Microcytosis; screening encounter Social History Tobacco Use [...] on file documented as of this encounter Progress Notes * Jaimie Burr, [facility] - 02/08/2018 8:45 AM EDT Genetic Counseling Note Emily Mcfadden is a 32 y.o. female currently at 11w6d gestation. She was referred to the Diagnosis Program by Yael Maya MD. I met with Emiyl for a 30 minute geneticcounseling visit. She was accompanied to the visit by her , Emerson Martin, and their son and daughter. Chief Complaint Patient presents with ??? Aneuploidy screening A three generation pedigree was obtained and will be scanned into Emily's electronic medical record. Family History Problem (# of Occurrences) Relation (Name,Age of Onset) Other (1) Nephew: Degos disease The reported family history was otherwise unremarkable for intellectual disability, congenital anomalies, recurrent loss, or known genetic conditions that could have implications for this . Emily is half Urdu, non-Quaker, and half Ashkenazi Quaker, and Emerson is Ashkenazi Quaker. Consanguinity was denied. Obstetric History T2 L2 SAB1 TAB0 Ectopic0 Multiple0 Live Births2 # Outcome Date GA Lbr Alan/2nd Weight Sex Delivery Anes PTL Lv 4 Current 3 Term 01/07/12 39w2d 3.033 kg (6 lb 11 oz) M LWR SEG [place]NE CATHY 2 SAB 06/2010 1 Term 03/24/08 41w2d 2.665 kg (5 lb 14 oz) F LWR SEG OSBORNE CATHY Complications: Failure to Progress in First Stage Patient's last menstrual period was 11/18/2017. Estimated Date of Delivery: 08/25/18 based on LMP Completed Screening Test Result ?? Spinal muscular atrophy screen Not in record ??? Cystic fibrosis carrier screen Negative per patient report ??? Thalassemia screen Low MCV (78.9 fL) Assessment 1.) Family history of Degos disease: Emerson reported his brother's son at age 4 of Degos disease. Degos disease is a rare blood vessel disorder characterized by blockages of small to medium sized blood vessels which slows or stops the flow of blood through the affected vessels. Severity of symptoms depends on the extent and location of the affected blood vessels. Some individuals with Degos disease have isolated skin involvement and develop porcelain-white macules on their skin. Other individuals have more wide spread disease. Multiorgan disease can become life threatening. The cause of this condition is currently unknown. Emerson indicated there are similar conditions being considered asa diagnosis. It is unclear if this family history is significant. 2.) Spinal muscular atrophy carrier screening: ACOG recommends offering carrier screening to all women for spinal muscular atrophy (SMA). SMA is a neuromuscular disorder caused by the degeneration ofcells in the spinal cord and brainstem. This results in progressive muscle weakness, poor tone, andeventual respiratory failure. Four categories of SMA have been delineated, based on age of diagnosis and severity of symptoms. Promising treatments are being developed but there is no cure. SMA is the second most common fatal autosomal recessive disorder in Caucasians after cystic fibrosis, with a incidence of ~1 in 5,000. SMA has a carrier frequency of approximately 1 in 35 and carrier detection rate of approximately 95% in Caucasians. A negative carrier screen reduces, but does not eliminate, one's carrier risk. If Emily is a carrier, she understands carrier screening will then be indicated for her partner. We discussed autosomal recessive inheritance and the availability of diagnosis in the context of two carrier parents. Emily opted for SMA screening. The appropriate consent form was reviewed. 3.) Quaker ancestry: We reviewed the increased incidence of certain autosomal recessive conditions in the Ashkenazi Quaker population. Emily recalled she had at least Elio-Sachs carrier screening during a past in [place]. She signed a medical record release so that I may obtain those records. No screening today. 4.) Low MCV: We discussed genetic and non-genetic causes for a low MCV. Ferritin studies were ordered. 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 She does not take iron. 5.) Aneuploidy screening: Emily requests aneuploidy screening with the Madison test. We discussed the differences, benefits and limitations of diagnostic testing and screening, including amniocentesis, and cell-free DNA screening (Madison). Madison screens for the common trisomies: Trisomy 21 (Down syndrome), trisomy 13 and trisomy 18. The general phenotypes of these trisomies and sex chromosome aneuploidies were reviewed. Madison detects approximately 99% and 97% of fetuses with Down syndrome and trisomy 18, respectively. Madison has a lower detection rate for trisomy 13. For these three trisomies, the false positive rate is less than 0.1%. We discussed that the origin of the cell-free DNA is placental, and that there are rare circumstances that the placental DNA is not representative government relations of the DNA. Because false positives do occur, a Madison result indicating a high likelihood for an aneuploidy should be followed up with a discussion of patient specific positive predictivevalue and the usefulness of a karyotype. Amniocentesis is associated with a ~1 in 300 risk ofmiscarriage. Madison does not screen for open neural tube defects. I explained the possibility of anonreportable result due to insufficient fraction or quality improvement manager factors. Plan: CF and SMA screening, and the Madison test today with sex and X,Y aneuploidy screening.Emily will be called with results as they are available. documented in this encounter Plan of Treatment Not on file documented as of this encounter Results * Miscellaneous Lab request (02/08/2018 10:13 AM EDT) Label Request received in lab. [facility] Blood specimen (specimen) 02/08/2018 10:13 AM EDT 02/08/2018 11:06 AM EDT Narrative Resulting Agency Comment Spec In Lab E Sabina Rocha MD LAB SEND OUT [facility] Organization Address City/State/ZIP Co de Phone Number [facility] [place] [address] * Ferritin (02/08/2018 10:13 AM EDT) Ferritin 49 15 - 150 ng/mL [facility] Comment: Pediatric reference ranges not verified at [facility] [place] [place], interpret with caution. Reference ranges for females greater than 50 years of age approach values for men, i.e., 30-400 ng/mL. Blood specimen (specimen) 02/08/2018 10:13 AM EDT 02/08/2018 10:25 AM EDT Narrative Resulting Agency Comment Spec In Lab E Sabina Rocha MD CHEMISTRY ORDERAB LES [facility] [place] [address] documented in this encounter Visit Diagnoses Diagnosis Microcytosis Other abnormality of red blood cells screening encounter Unspecified screening documented in this encounter Care Teams Trim Machine Operator Relationship Specialty Start Date End Date None None PCP - General 02/02/18 10/11/19 documented as of this encounter
--- OUTSIDE RECORDS SUMMARY | 2024-06-07 22:49 | XMS_ITS | Encounter Summary ---
Author Organization [facility] [place] [address] Care Team Providers Care Administrative Assistant Front Desk Name Role Phone None Primary Care Provider Unavailabl e Encounter Details Date Type Department Care Team (Latest Contact Info) Description 03/25/2018 1:00 PM EDT - 03/25/2018 11:59 PM EDT Hospital [place] [address] Johnathon Maya MD [facility] [address] OBST[place] [address] H/O section complicating ; Morbid obesity with BMI of 40.0-44.9, adult; Encounter for supervision of other normal in first trimester Discharge Disposition: Home Social History Tobacco Use [...] on file documented as of this encounter Medications at Time of Discharge Medication Sig Dispensed Refills Start Date End Date acetaminophen (TYLENOL) 325 mg tablet Take 650 mg by mouth every 4 hours as needed. vitamin with [id number] ( VITAMIN) TabletIndications:Encoun ter for supervision of other normal in second trimester Take 1 tablet by mouth daily. 90 tablet 3 03/25/2018 05/12/2021 calcium-vitamin D3 600 mg calcium- 400 unit TabletIndications:Encoun ter for supervision of other normal in second trimester Take 1 tablet by mouth daily. 90 tablet 3 03/25/2018 05/12/2021 CALCIUM CARBONATE (CALTRATE 600 ORAL) Take 1 tablet by mouth daily. 05/12/2021 documented as of this encounter Plan of Treatment Not on file documented as of this encounter Procedures Procedure Name Priority Date/Time Associated Diagnosis Comments US OB DETAILED MORPHOLOGY Routine 03/25/2018 1:46 PM EDT H/O section complicating Morbid obesity with BMI of 40.0-44.9, adult [...] anatomy evaluation appears within normal limits. ? Geoff Rocha MD Electronically Signed Final Report ?? 03/25/2018 01:54 pm Narrative 03/25/2018 1:54 PM EDT OBSTETRICS REPORT ? (Signed Final 03/25/2018 01:54 pm) PATIENT INFO: ID #: ? [id number] ?: ??[birth year] (32 yrs) Name: ? ANIYAH B ? Visit Date: 03/25/2018 01:43 pm ? MCKENNA- ? SAMMI PERFORMED BY: Performed By: ? Garret MARIE, ??Gianna Attending: ?Josefina FAITH, E ??Sabina Referred By: ?JOHNATHON MAYA Location: ? [place] SERVICE(S) PROVIDED: ??[facility] - Detailed Morphology - [id number] ? [id number] INDICATIONS: ??18 weeks gestation of ?Z3A.18 ??Obesity [...] ?70.9 ??% FL/AC: ? 22.4 ??% ? 20 - 24 Est. FW: ? 257 ?? gm ? [...] Arch: ? Visualized SVC: ? Visualized Cardiac [place]: ?Visualized Diaphragm: ? Visualized 3 Vessel View: [...] visualized Right Ovary Not visualized Procedure Note Geoff Rocha MD - 03/25/2018 OBSTETRICS REPORT (Signed Final 03/25/2018 01:54 pm) PATIENT INFO: ID #: [id number] : [birth year] (32 yrs) Name: ANIYAH Rodriguez Visit Date: 03/25/2018 01:43 pm DARREL CHAPA PERFORMED BY: Performed By: Gianna Combs RDMS Attending: Geoff Rocha MD Referred By: JOHNATHON MAYA Location: [place] SERVICE(S) PROVIDED: [facility] - Detailed Morphology - [id number] INDICATIONS: 18 weeks gestation of Z3A.18 Obesity [...] Visualized Ductal Arch: Visualized SVC: Visualized Cardiac [place]: Visualized Diaphragm: Visualized 3 Vessel View: Visualized [...] the anatomy evaluation appears within normal limits. Geoff Rocha MD Electronically Signed Final Report 03/25/2018 01:54 pm Johnathon Maya MD IMG US OB ORDERABLES documented in this encounter Visit Diagnoses Diagnosis H/O section complicating Previous delivery, unspecified as to episode of care or not applicable Morbid obesity with BMI of 40.0-44.9, adult Morbid obesity Encounter for supervision of other normal in first trimester documented in this encounter Care Teams Administrative Assistant Front Desk Relationship Specialty Start Date End Date None None PCP - General 02/02/18 10/11/19 documented as of this encounter
--- OUTSIDE RECORDS SUMMARY | 2024-06-07 22:49 | XMS_ITS | Encounter Summary ---
Author Organization [facility] [place] [address] Care Team Providers Care Strike Warfare/Missile Systems Officer Name Role Phone None Primary Care Provider Unavailabl e Reason for Visit * Reason Comments Rupture of Membranes * Auth/Cert Specialty Diagnoses / Procedures Referred By Contac t Referred To Contact Diagnoses Encounter for trial of labor Procedures EMERGENCY IPI Referral ID Status Reason Start Date Expiration Date Visits Re quested Visits Authorized [id number] 1 1 Encounter Details Date Type Department Care Team (Latest Contact Info) Description 08/25/2018 8:27 AM EDT - 08/25/2018 12:07 PM EDT Hospital [place] [phone] Katlyn Jose MD [facility] [place] [address] Discharge Disposition: Home Social History Tobacco Use [...] Sign Reading Time Taken Comments Blood Pressure 142/87 08/25/2018 8:43 AM EDT Pulse 79 08/25/2018 8:43 AM EDT Temperature 36.4 ??C (97.5 ??F) 08/25/2018 8:34 AM ED T Respiratory Rate 16 08/25/2018 8:34 AM EDT Oxygen Saturation 100% 08/25/2018 8:39 AM EDT Inhaled Oxygen Concentration - - Weight - - Height - - Body Mass Index - - documented in this encounter Discharge Instructions * Discharge Instructions* Abby Lopes RN - 08/25/2018 12:02 PM EDT [facility] [place] to contact OB doctor [facility] [place] [address] to contact family doctor Following your visit to [facility] Triage TERM GESTATION Greater than 37 Weeks Call your provider if: You are having painful contractions/abdominal cramps less than 5 minutes apart for 1 hour ??? walking, resting, or any kind of activity does not make them less painful or go away You have ruptured your membranes ??? Small leakage of fluid or large gush ??? Note appearance of fluid ??? amount ??? color (may be clear, yellowish, green, pea soup-like, blood-tinged, or bloody) ??? time You have noticed a marked decrease in your baby's movement ??? refer to your kick count instructions in the Your Journey book ??? baby should move at least 10 times in 2 hours You have had any direct trauma to your abdomen such as a car accident, fall, or impact or if you have any of these symptoms: ??? Headache ??? Visual disturbance/spots in front of your eyes/blurry vision ??? Pain under your ribs toward the right side of your abdomen ??? Sudden swelling to your legs or any increase in swelling to your arms and face ??? Pain or bleeding on urination ??? A temperature at or above 100.4F ??? Nausea or vomiting ??? Flu-like symptoms: cough, fever, or muscle aches GENERAL INSTRUCTIONS ??? Drink plenty of non-caffeinated fluids throughout the day to prevent dehydration ??? Keep your regularly scheduled doctor or recruiting scheduler appointment NEW MEDICATIONS: SPECIAL INSTRUCTIONS/FOLLOW-UP CARE: documented in this encounter Medications at Time [...] needed. 14 each 08/29/2018 05/12/2021 vitamin with [id number] ( VITAMIN) TabletIndications:Encou nter for supervision of [...] as of this encounter Progress Notes * Zaynab Arndt CNM - 08/25/2018 12:07 PM EDT LABOR TRIAGE Emily is a 32 y.o. @ 40w0d by LMP Reports ctxs have spotted and is no longer experiencing any leaking of fluid. Continues to deny headaches, visual changes. Denies continued nausea/vomiting. Last Set of Vitals: Most Recent Vitals: 08/25/18 0843 BP: 142/87 Pulse: 79 Resp: Temp: SpO2: Urine Pr/Cr ratio: 0.2 CBC, AST and creatinine pending Cervix Exam: Dilation: 0.5 (08/25/18 1133) Effacement: 60 Station: -3 Cervical Position: Posterior Consistency: Soft Otto Score: 4 OB Examiner: Zaynab Arndt. Presentations: Cephalic NST Nonstress Test, Fetus A NST Start Time: 832 (08/25/18929) HR (Beats/Min): 120 (08/25/18929) HR Variability: moderate (amplitude range 6 to 25 bpm) (08/25/18929) HR Accelerations: present;greater than/equal to 15 bpm;lasting at least 15 seconds (08/25/18929) HR Decelerations: none (08/25/18929) Contraction Frequency (Minutes): 5-6 (08/25/18929) Contractions in 10 Minutes: 2 (08/25/18929) Nonstress Test Interpretation: Reactive, >32 weeks: two 15 bpm accelerations lasting 15 seconds (08/25/18929) Overall Impression: Reassuring for gestational age (08/25/18929) Assessment Reassuring assessment of patient Not in labor at this time Elevated BP today with normal urine pr/cr PLAN D/C home Next Visit Wednesday 08/29 for BP check in clinic To call with bleeding , LOF, decrease movement, increased intensity of contractions C/S moved to 41wks per request I personally reviewed and interpreted this NST. Zaynab Arndt CNM * Abby Lopes RN - 08/25/2018 12:07 PM EDT Patient discharged home. AVS reviewed with patient and spouse who verbalize understanding and agreement with discharge instructions and follow up. * Zaynab Arndt CNM - 08/25/2018 9:19 AM EDT LABOR TRIAGE Emily is a 32 y.o. @ 40w0d by LMP Patient seen in triage for R/O SROM HPI: Called pest control supervisor this am with report of gush of fluid and contractions since 0. States shehad a gush of fluid that woke her up, has had intermittent leaking. Ctxs were painful at home happening every 3-4 min apart and have spaced since getting to the hospital. States contractions were much more painful in the car and is now managing them fine in triage. Denies headaches, visual changes. Had nausea and vomiting with contractions this morning. Emily wishes to TOLAC and has been previously counseled and consented. She has a repeat c/section scheduled for tomorrow and wishes to move this to 41wks if possible. Reports A small amount loss of fluid from vagina Reports normal movement Last Set of Vitals: BP on admission 133/90, repeat 142/87, afebrile, pulse 60-70, 100% on RA Sterile Speculum:no pooling of fluid seen, Nitrizine test is negative, Ferning test is negative, vaginal discharge present, appears thin and mucousy with mucous plug Cervix Exam: Dilation: 0.5 (08/25/18849) Effacement: 60 Station: -3 Cervical Position: Posterior Consistency: Soft Otto Score: 4 OB Examiner: Zaynab Arndt Presentations: Cephalic, confirmed by BSUS NST NST Fetus A 08/25/2018 HR (Beats/Min) 120 HR Variability moderate (amplitude range 6 to 25 bpm) HR Accelerations present;greater than/equal to 15 bpm;lasting at least 15 seconds HR Decelerations none Contraction Frequency (Minutes) 5-6 Nonstress Test Interpretation Reactive, >32 weeks: two 15 bpm accelerations lasting 15 seconds Overall Impression Reassuring for gestational age Nonstress Test, Fetus A NST Start Time: 832 (08/25/18929) HR (Beats/Min): 120 (08/25/18929) HR Variability: moderate (amplitude range 6 to 25 bpm) (08/25/18929) HR Accelerations: present;greater than/equal to 15 bpm;lasting at least 15 seconds (08/25/18929) HR Decelerations: none (08/25/18929) Contraction Frequency (Minutes): 5-6 (08/25/18929) Contractions in 10 Minutes: 2 (08/25/18929) Nonstress Test Interpretation: Reactive, >32 weeks: two 15 bpm accelerations lasting 15 seconds (08/25/18929) Overall Impression: Reassuring for gestational age (08/25/18929) Assessment Reassuring assessment of patient LABOR assessment - Early latent labor. NST - reactive [No] vaginal bleeding [not] leaking amniotic fluid, NEG ROM PLAN Will get PIH labs given elevated pressures and trace urine noted on urine dip today Will reassess cervical exam in 1-2hours or PRN Discussed TOLAC with patient, will move c/s date to next week as requested MD team to review consent with her today D/C home if not in labor and no cervical record changer tester two hours Zaynab Arndt CNM documented in this encounter Plan of Treatment Not on file documented as of this encounter Procedures Procedure Name Priority Date/Time Associated Diagnosis Comments SCAN, PERIPHERAL BLOOD Routine 8 11:41 AM EDT HEMOGRAM Routine 08/25/2018 11:41 AM EDT CREATININE Routine 08/25/2018 11:41 AM EDT ASPARTATE AMINOTRANSFERASE Routine 08/25/2018 11:41 AM EDT PROTEIN/CREATININE RATIO, URINE Routine 08/25/2018 9:57 AM EDT POCT URINE DIPSTICK Routine 08/25/2018 9 :17 AM EDT documented in this encounter Results * Scan, Peripheral Blood (08/25/2018 11:41 AM EDT) Plat estimate Normal [facility] RBC Morphology Abnormal [facility] Microcyte 1-5 /HPF [facility] Blood specimen (specimen) 08/25/2018 11:41 AM EDT 08/25/2018 11:46 AM EDT Narrative Resulting Agency Comment Spec In Lab Zaynab Arndt CNM HEMATOLOGY ORDERABL ES [facility] [place] [address] * (ABNORMAL) Creatinine (08/25/2018 11:41 AM EDT) Creatinine 0.69(L) 0.70 - 1.20 mg/dL [facility] Est Glomerular Filtration Rate 114 >=60 mL/min/1.7 3 m?? [facility] Comment: The eGFR was calculated using the CKD-EPI equation. As with all creatinine based estimates of kidney function, eGFR values calculated with the CKD-EPI equation are not accurate in patients with acute kidney failure, extremes of body mass or the acutely ill. http://[employer] eGFR 133 >=60 mL/min/1.7 3 m?? [facility] Comment: The eGFR was calculated using the CKD-EPI equation. As with all creatinine based estimates of kidney function, eGFR values calculated with the CKD-EPI equation are not accurate in patients with acute kidney failure, extremes of body mass or the acutely ill. http://[employer])/[facility] Blood specimen (specimen) 08/25/2018 11:41 AM EDT 08/25/2018 11:46 AM EDT Narrative Resulting Agency Comment Spec In Lab Zaynab Arndt CNM CHEMISTRY ORDERABLE S Performing Organization Address City/State/[facility] Co de Phone Number [facility] [place] [address] * (ABNORMAL) Hemogram (08/25/2018 11:41 AM EDT) White Blood Cell 17.4(H) 4.0 - 9.5 x10(3)/mc L [facility] Red Blood Cell 4.87 4.00 - 5.21 x10(6)/mc L [facility] Hemoglobin 12.1 11.7 - 15.5 gm/dL [facility] Hematocrit 36.3 35.7 - 45.8 % [facility] Mean Cell Volume 74.5(L) 82.6 - 94.4 fL [facility] Mean Cell Hemoglobin 24.8(L) 27.1 - 32.0 pg [facility] Mean Cell Hemoglobin Concentration 33.3 31.7 - 35.0 gm/dL [facility] Platelet 282 145 - 357 x10(3)/mc L [facility] RDW Standard Deviation 38.6 37.0 - 46.0 fL [facility] RDW coefficient of variation 14.5(H) 11.5 - 14.1 % [facility] Mean Platelet Volume 8.4 7.6 - 12.9 fL [facility] NRBC% auto 0.0 % [facility] NRBC Absolute 0.000 0.000 - 0.000 x10(3)/mc L [facility] Blood specimen (specimen) 08/25/2018 11:41 AM EDT 08/25/2018 11:46 AM EDT Narrative Resulting Agency Comment Spec In Lab Zaynab Arndt CNM HEMATOLOGY ORDERABL ES Performing Organization Address City/[facility]/ZIP Co de Phone Number [facility] [place] [address] * Aspartate Aminotransferase (08/25/2018 11:41 AM EDT) Aspartate Aminotransferase 12 0 - 30 unit/L [facility] Blood specimen (specimen) 08/25/2018 11:41 AM EDT 08/25/2018 11:47 AM EDT Narrative Resulting Agency Comment Spec In Lab Zaynab Arndt CNM CHEMISTRY ORDERABLE S Performing Organization Address City/[facility]/ZIP Co de Phone Number [facility] [place] [address] * (ABNORMAL) Protein/Creatinine Ratio, urine (08/25/2018 9:57 AM EDT) Creatinine, Urine 236 mg/dL [facility] Protein, Urine 31(H) 0 - 12 mg/dL [facility] Protein / Creatinine Ratio, Urine 0.1 ratio [facility] Urine specimen (specimen) 08/25/2018 9:57 AM EDT 08/25/2018 10:07 AM EDT Narrative Resulting Agency Comment Spec In Lab Zaynab Arndt CNM URINE ORDERABLES [facility] [place] [address] * POCT urine dipstick (08/25/2018 9:17 AM EDT) POC Sp Hubert 1.025 1.002 - 1.030 POC pH, UA 5 5.0 - 8.5 POC Leuk, UA neg Negative - Negative POC Nitrite, UA neg Negative - Negative POC Protein, UA + Negative - Negative mg/dL POC Glucose, UA neg Normal - Normal mg/dL POC Ketone, UA + Negative - Negative POC Bili, UA neg Negative - Negative POC Blood, UA neg Negative - Negative antolin/uL 08/25/2018 9:17 AM EDT Katlyn Jose MD POINT OF CARE TEST O RDERABLES documented in this encounter Visit Diagnoses Diagnosis state, incidental documented in this encounter Admitting Diagnoses Diagnosis state, incidental documented in this encounter Care Teams Strike Warfare/Missile Systems Officer Relationship Specialty Start Date End Date None None PCP - General 02/02/18 10/11/19 documented as of this encounter
--- OUTSIDE RECORDS SUMMARY | 2024-06-07 22:49 | XMS_ITS | Encounter Summary ---
[place] [address] Care Team Providers Care Senior Health Physics Technician Name Role Phone None Primary Care Provider Unavailabl e Encounter Details Date Type Department Care Team (Latest Contact Info) Description 06/02/2018 3:50 PM EDT Laboratory Appointment Lab [address] [place] [phone] Encounter for supervision of other normal in first trimester Social History Tobacco Use Types Packs/Day Years [...] Procedure Name Priority Date/Time Associated Diagnosis Comments GESTATIONAL DIABETES SCREEN Routine 06/02/2018 4:00 PM EDT Encounter for supervision of other normal in first trimester HEMOGLOBIN Routine 06/02/2018 4:00 PM EDT Encounter for supervision of other normal in first trimester HEMATOCRIT Routine 06/02/2018 4:00 PM EDT Encounter for supervision of other normal in first trimester documented in this encounter Results * Gestational Diabetes Screen (06/02/2018 4:00 PM EDT) Glucose Gestational Screen, 1 Hour 84 65 - 134 mg/dL [facility] Blood specimen (specimen) 06/02/2018 4:00 PM EDT 06/02/2018 4:11 PM EDT Narrative Resulting Agency Comment Spec In Lab Sabina Danielle MD CHEMISTRY ORDERABLES Performing Organization Address City/[facility]/ZIP Co de Phone Number [facility] [place] [address] * (ABNORMAL) Hematocrit (06/02/2018 4:00 PM EDT) Hematocrit 35.1(L) 35.7 - 45.8 % [facility] Blood specimen (specimen) 06/02/2018 4:00 PM EDT 06/02/2018 4:11 PM EDT Narrative Resulting Agency Comment Spec In Lab Sabina Danielle MD HEMATOLOGY ORDERABLE S Performing Organization Address City/[facility]/ZIP Co de Phone Number [facility] [place] [address] * Hemoglobin (06/02/2018 4:00 PM EDT) Hemoglobin 12.2 11.7 - 15.5 gm/dL [facility] Blood specimen (specimen) 06/02/2018 4:00 PM EDT 06/02/2018 4:11 PM EDT Narrative Resulting Agency Comment Spec In Lab Sabina Danielle MD HEMATOLOGY ORDERABLE S Performing Organization Address City/[facility]/ZIP Co de Phone Number [facility] [place] [address] documented in this encounter Visit Diagnoses Diagnosis Encounter for supervision of other normal in first trimester documented in this encounter Care Teams Senior Health Physics Technician Relationship Specialty Start Date End Date None None PCP - General 02/02/18 10/11/19 documented as of this encounter
--- OUTSIDE RECORDS SUMMARY | 2024-06-07 22:49 | XMS_ITS | Encounter Summary ---
Author Organization [facility] Address [facility] [place] [address] Care Team Providers Care Distribution Manager Name Role Phone Oscar Garduno MD Primary Care Provider [phone] Encounter Details Date Type Department Care Team (Late st Contact Info) Description 05/27/[address] [facility] [address] [place] [phone] Laurence Eller Social History Tobacco Use Types Packs/Day Years [...] encounter Miscellaneous Notes * Telephone Encounter - Laurence Eller - 05/27/2021 1:48 PM EDT Called patient to schedule from a referral to our interactive media director Tia Crawford. Voicemail not accepting new messages at this time so could not leave a message. Letter being sent to contact us. documented in this encounter Plan of Treatment Not on file documented as of this encounter Visit Diagnoses Not on filedocumented in this encounter Care Teams Distribution Manager Relationship Specialty Start Date End Date Oscar Garduno MD [facility] [place] [address] PCP - General General Internal Medicine 05/07/2104/24 documented as of this encounter
--- OUTSIDE RECORDS SUMMARY | 2024-06-07 22:49 | XMS_ITS | Encounter Summary ---
Author Organization [facility] [place] [address] Care Team Providers Care Tube Winder Hand Name Role Phone MadelineCaleb romo Kali MADRIGAL Primary Care Provider [phone] Reason for Visit * Reason Comments Pelvic Pain Abdominal Pain lower right Encounter Details Date Type Department Care Team (Late st Contact Info) Description 07/04/2012 1:15 PM EDT [place] [address] Frederick Abad MD [facility] [place] [address] Chronic pelvic pain in female (Primary Dx) Discharge Disposition: Home Social History Tobacco Use Types Packs/Day Years Used Date Smoking Tobacco: Former Sex and Gender Information Value Date Recorded Sex Assigned at Not on file Gender Identity Not on file Sexual Orientation Not on file documented as of this encounter Last Filed Vital Signs Vital Sign Reading Time Taken Comments Blood Pressure 135/96 07/04/2012 1:35 PM EDT Pulse 89 07/04/2012 1:35 PM EDT Temperature - - Respiratory Rate - - Oxygen Saturation 99% 07/04/2012 1:35 PM EDT Inhaled Oxygen Concentration - - Weight 106.6 kg (235 lb) 07/04/2012 1:35 PM EDT Height 160 cm (5' 3) 07/04/2012 1:35 PM EDT Body Mass Index 41.63 07/04/2012 1:35 PM EDT documented in this encounter Progress Notes * Frederick Abad MD - 07/04/2012 2:55 PM EDT HISTORY OF PRESENT ILLNESS: I am seeing Ms. Schaffer at the request of Dr. Heraclio Morin for recommendations regarding Ms. Schaffer's chronic pelvic pain or chronic right lower pain syndrome. Thank you so much Dr. Morin for getting me involved in the care of Ms. Emily Schaffer who as you know is a delightful 26-year-old woman with a chief complaint of pain in her right lower abdomen. It began in 2007, approximately four months after section. She was subsequently diagnosed with an ectopic in 06/2010, where adhesions were noted on laparoscopy. In 12/2011, she underwent a second and had lysis of adhesions at that time. She said that the pain that she is having now is really identical to the pain that she had in 2007, although it might be a little bit greater in intensity. She has been to physical therapy without relief. She is using Ibuprofen 600 mg tablets without relief and she has used a heating pad without relief. Her pain if she sits in the office is a 5 on a 0 to 10 verbal numerical scale. Over the course of the last week at its lowest that has been four, on average it has been seven and on its high it has been nine. Her pain is worse when she does anything around the house, if she is washing dishes, shopping, or going up and down stairs. Her right lower quadrant, abdominal/pelvic pain is in 9 on a 0 to 10 scale. PAST MEDICAL HISTORY: Her past medical history is otherwise entirely unremarkable. PAST SURGICAL HISTORY: She had a jaw surgery when she was 13 or 14. SOCIA HISTORY: She lives in [place] with her and her two children age four and six months. She is breast feeding and she plans on breast feeding until her baby weans herself naturally and this occurred with her son in about the age of three and [age] years. She feels like she is disabled and she has applied for disability. Her is student at [employer]. She has no prior history of alcoholism or drug abuse. She does not smoke cigarettes. FAMILY HISTORY: There is no family history of alcoholism or drug abuse. REVIEW OF SYSTEMS: Twelve systems were reviewed in detail and were all negative. Relevant positives include the fact that she states her physical therapist told her that she does not empty her bladder enough. She often in addition has urgency to defecate, but is unable to move her bowels. She has not seen the urologist or a freight claim investigator. Her stools are soft, but otherwise normal. She describes her mood as kind of depressed and she states she feels hopeless about what is going to happen with this pain. It has been interfering with her relationship with her . She denies any suicidal or homicidal ideation. She does suffer from severe dyspareunia as well. PHYSICAL EXAMINATION: On physical examination, she is articulate, clearheaded, well organized, and an excellent historian. She has normal hearing to finger rub bilaterally. Her sclerae are nonicteric. She has normal range of motion of her spine. There are no abnormal skin lesions noted. I did not do a total body exam. She has a low transverse abdominal incision from her two C-sections. Auscultation of a heart reveals a regular rate and rhythm without murmurs, rubs, or gallops. Her lungs are clear to auscultation. There is no costovertebral angle tenderness. Patellar, ankle, biceps, and brachioradialis deep tendon reflexes are 2+ and symmetrical. She has normal strength and sensation in her upper and lower extremities. Examination of her abdomen reveals that there is no hypesthesia, anesthesia, allodynia, or hyperalgesia in the area of her scar. Her pain is really on the right lower margin of the scar and lateral to the pubic symphysis and moderate palpation will cause her to help pain. I do not believe the pain is in the abdominal wall. It does seem like it is an intraabdominal, although I might be mistaken. Dorsalis pedis pulses are 1+ and symmetrical. She does have some related back pain, but nothing concerning. ASSESSMENT: Right lower quadrant pain, and chronic pelvic pain. PLAN: We has had a very lengthy and thorough discussion today about her options. Firstly, I would recommend that in order to be thorough that she be seen by a urologist, I think it would be reasonable that if urologist feels it might be fruitful for her to have a single cystoscopy. I have also think it would be reasonable for her to be seen by freight claim investigator and again with the same plan, it would be reasonable for her to have one colonoscopy. Just to make sure that she does not have a short segment of denervated bowel or interstitial cystitis or some other disorder that might better explained her symptoms. She has had a thorough and repeated evaluation from her tint layer and I did not repeat a pelvic exam today, although she states that it is painful when she has a pelvic exam. From a treatment perspective, I do not think there are any operations or injection that are likely to help her. We discussed very briefly celiac plexus block, but I am not recommending it or probably more precisely a superior hypogastric plexus arnel, but I am not recommending any of these treatments to her at this time. From a pharmacological perspective, I would recommend treatment with gabapentin 300 mg three times a day to start. It should be increased every few days until she reaches a target dose of 1200 mg three times a day. I would start simultaneously Cymbalta at a starting dose of 30 mg a day and in one month, I would increase this to 60 mg a day. My guess is that she will have some improvement in her pain using these two drugs. I would also consider again right at this time since she is having so much pain and has so few options, treatment with oxycodone 5 mg one tablet twice a day. Between the oxycodone, the duloxetine, and the pregabalin, she should feel better and those are really her only pharmacological options any way. I have discussed with her physical medicine approaches to managing her pain and have suggested to her that she think of herself as an injured athlete and she do formal exercise for one hour every day. If it is possible, she will hopefully be able to find somebody to take the children off her hands, just for that hour, so she can do stretching, strengthening, and endurance type exercises. The best things she can do would be to get involve with the personal care aide, but if this is not possible, then perhaps recommendations for exercise from a physical therapist would be appropriate. I have advised her and I believe that if she could get more fit, her pain would be less. Lastly, from her behavioral perspective, I think that the duloxetine is going to help with her mood. At some point depending on what her responses to these medications, it might be appropriate for her to see a behavioral medicines specialist. She is under a lot of stress because of her pain, because of not being able to play with her [id number], because of her 's expectations about her role in the family, and etc. and I think that if she does not get substantial relief from the interventions mentioned above that it would be important for her to see a behavioral medicine specialist. Both of her parents by the way are psychotherapist. I am not scheduling her for a followup visit, but we will be happy to see her again at anytime. Thank you so much for your referral. documented in this encounter Plan of Treatment Not on file documented as of this encounter Visit Diagnoses Diagnosis Chronic pelvic pain in female- Primary Unspecified symptom associated with female genital organs documented in this encounter Care Teams Tube Winder Hand Relationship Specialty Start Date End Date Caleb Shabazz DO [address] [place] [id number] PCP - General 07/04/12 02/01/18 documented as of this encounter
--- OUTSIDE RECORDS SUMMARY | 2024-06-07 22:49 | XMS_ITS | Encounter Summary ---
Author Organization [facility] [place] [address] Care Team Providers Care Emergency Medical Service Manager Name Role Phone None Primary Care Provider Unavailabl e Encounter Details Date Type Department Care Team (Late st Contact Info) Description 08/25/2018 Telephone Obstetrics [place] [address] Medhat Ortega MD [facility] [address] OBSTETRICS [place] [address] Social History Tobacco Use Types Packs/Day Years [...] encounter Miscellaneous Notes * Telephone Encounter - Medhat Ortega MD - 08/25/2018 5:10 AM EDT 40w , hx C/S x2 Pt reports ctxns since 0400, q 3 min, waking her from sleep. Recently felt a gush and now feels herunderwear is wet. She is feeling good FM and denies VB. GBS pos. Recommended patient present to BP for eval. Pt verbalizes understanding documented in this encounter Plan of Treatment Not on file documented as of this encounter Visit Diagnoses Not on filedocumented in this encounter Care Teams Emergency Medical Service Manager Relationship Specialty Start Date End Date None None PCP - General 02/02/18 10/11/19 documented as of this encounter
--- OUTSIDE RECORDS SUMMARY | 2024-06-07 22:49 | XMS_ITS | Encounter Summary ---
Author Organization [facility] Address [facility] [place] [address] Care Team Providers Care Live Study Manager Name Role Phone None Primary Care Provider Unavailabl e Encounter Details Date Type Department Care Team (Late st Contact Info) Description 08/18/2011 Interpretation Only Radiology [address] [facility] [place] [address] Unknown None Social History Tobacco Use Types Packs/Day Years Used Date Smoking Tobacco: Never Assessed Sex and Gender Information Value Date Recorded Sex Assigned at Not on file Gender Identity Not on file Sexual Orientation Not on file documented as of this encounter Plan of Treatment Not on file documented as of this encounter Procedures Procedure Name Priority Date/Time Associated Diagnosis Comments US OB SCREENING MORPHOLOGY Routine 08/18/2011 3:57 PM EDT documented in this encounter Results * US OB Screening Morphology (08/18/2011 3:57 PM EDT) Anatomical Region Laterality Modality Pelvis, Abdomen Ultrasound 08/18/2011 3:57 PM EDT Narrative 08/18/2011 3:57 PM EDT APD Historical Result Principal Mat Making Machine Tender: ??MARIAN ??Michael De La Vega Suazo [facility] OBSTETRICAL ULTRASOUND REPORT ? -------- Pat. Name: LESTEREMILY SORIANO ?Study Date: ?? 08/18/2011 5:13pm Pat. No: ?? [id number] ?Referring MD: LIVE LMP: ? 04/07/2011 ?Professor Of Biology: ??RISHI SAENZ GA by LMP: 19.0 weeks ?, Age: ? 1985, 25 GA by 1st: 19.2 weeks ?GA Selected: ??19.2 weeks (From First U) GA by US: ??19.5 weeks ?BRIGHT: ?01/11/2012 Hist/Ind: ?? SURVEY -------- MEASUREMENTS & AGE ? GROWTH EVALUATION Measurement ?? GA ? Range ?Source ?? % for 19.2 Ratios ------- ------- ?? AC ??13.6 cm 19.1 wk (17.0-21.2) Hadlock ??AC ?? 48% ?? FL/AC ??0.23 FL ?? 3.2 cm 20.0 wk (18.2-21.8) Hadlock ??FL ?? 70% GA for sonogram 19.5 wk (17.6-21.5) ? Weight Estimate: based on (AC,FL) Avg ? Weight: 295 gm (249-340) Hadlock : 0lbs, 10oz -------- CLINICAL SUMMARY TRANSABDOMINAL IMAGING WAS PERFORMED SIMONS INTRAUTERINE GESTATION IN CEPHALIC PRESENTATION PLACENTAL LOCATION is anterior. SIZE is appropriate for gestational age . GROWTH:normal growth, corresponds with prior study MORPHOLOGY: Intracranial anatomy appears normal. The anterior abdominal wall appears intact. Images of spine appear normal. Four-chamber view of the heart NOT IMAGED DUE TO POSITION. Stomach, kidneys and bladder unremarkable. Upper and lower extremities were seen. Normal umbilical cord insertion site seen. Two perivesical vessels documented. face could not be demonstrated due to position-PROFILE NOT IMAGED. MOTION NOTED. HEART RATE: 150 /bpm. SEX UNDETERMINED- UNABLE TO VIEW. MATERNAL OVARIES NOT SEEN ON TODAYS EXAM SURVEY INCOMPLETE- FACIAL PROFILE, FOUR-CHAMBER HEART, BPD & HC- NEED 1 MORE MEASURMENT. STUDY LIMITED BY MATERNAL BODY HABITUS, AND POSITION. RISHI SAENZ ?Marian Conway MD,FACR ? <Electronic Signature> 08/19/2011 Procedure Note Unknown - 04/25/2019 APD Historical Result Principal Mat Making Machine Tender: MARIAN Suazo [facility] OBSTETRICAL ULTRASOUND REPORT Pat. Name: EMILY CHAPA Study Date: 08/18/2011 5:13pm Pat. No: [id number] Referring MD: LIVE LMP: 04/07/2011 Professor Of Biology: RISHI SAENZ GA by LMP: 19.0 weeks , Age: 03 1985, 25 GA by 1st: 19.2 weeks GA Selected: 19.2 weeks (FromFir U) GA by US: 19.5 weeks BRIGHT: 01/11/2012 Hist/Ind: SURVEY MEASUREMENTS & AGE GROWTH EVALUATION Measurement GA Range Source % for 19.2 Ratios ------- ------- AC 13.6 cm 19.1 wk (17.0-21.2) Hadlock AC 48% FL/AC 0.23 FL 3.2 cm 20.0 wk (18.2-21.8) Hadlock FL 70% GA for sonogram 19.5 wk (17.6-21.5) Weight Estimate: based on (AC,FL) Avg Weight: 295 gm (249-340) Hadlock : 0lbs, 10oz CLINICAL SUMMARY TRANSABDOMINAL IMAGING WAS PERFORMED SIMONS INTRAUTERINE GESTATION IN CEPHALIC PRESENTATION PLACENTAL LOCATION is anterior. SIZE is appropriate for gestational age . GROWTH:normal growth, corresponds with prior study MORPHOLOGY: Intracranial anatomy appears normal. The anterior abdominal wall appears intact. Images of spine appear normal. Four-chamber view of the heart NOT IMAGED DUE TO POSITION. Stomach, kidneys and bladder unremarkable. Upper and lower extremities were seen. Normal umbilical cord insertion site seen. Two perivesical vessels documented. face could not be demonstrated due to position-PROFILE NOT IMAGED. MOTION NOTED. HEART RATE: 150 /bpm. SEX UNDETERMINED- UNABLE TO VIEW. MATERNAL OVARIES NOT SEEN ON TODAYS EXAM SURVEY INCOMPLETE- FACIAL PROFILE, FOUR-CHAMBER HEART, BPD & HC-NEED 1 MORE MEASURMENT. STUDY LIMITED BY MATERNAL BODY HABITUS, AND POSITION. RISHI SAENZ MD,FACR <Electronic Signature> 08/19/2011 Unknown IMG US OB ORDERABLES documented in this encounter Visit Diagnoses Not on filedocumented in this encounter Care Teams Live Study Manager Relationship Specialty Start Date End Date None None PCP - General 02/02/18 10/11/19 documented as of this encounter
--- OUTSIDE RECORDS SUMMARY | 2024-06-07 22:49 | XMS_ITS | Encounter Summary ---
Author Organization [facility] [place] [address] Care Team Providers Care Pc Support Specialist Name Role Phone None Primary Care Provider Unavailabl e Reason for Visit * Reason Comments Routine Visit Encounter Details Date Type Department Care Team (Late st Contact Info) Description 08/10/2018 1:45 PM EDT Routine Obstetrics [place] [address] Yael Maya MD [facility] [address] [place]ST[place] [address] GA: [id number] Social History Tobacco Use Types Packs/Day Years [...] Sign Reading Time Taken Comments Blood Pressure 128/70 08/10/2018 1:57 PM EDT Pulse - - Temperature - - Respiratory Rate - - Oxygen Saturation - - Inhaled Oxygen Concentration - - Weight 109.4 kg (241 lb 3.2 oz) 08/10/2018 1:57 PM EDT Height - - Body Mass Index 41.4 02/02/2018 10:56 AM EDT documented in this encounter Progress Notes * Jaimie Hutchison LNA - 08/10/2018 1:45 PM EDT The patient denies travel by her or her partner to an area with endemic Zika infection including [place] * Yael Maya MD - 08/10/2018 1:45 PM EDT Doing great. No ctxns, LOF, VB. Reviewed US today. Nl growth, fluid, cephalic. GBS pos. Augmentin allergy, sensitivities were not done. Will plan for cefazolin for prophylaxis. F/U in 2 wks for scheduled C/S. documented in this encounter Plan of Treatment Not on file documented as of this encounter Visit Diagnoses Diagnosis Positive GBS test documented in this encounter Care Teams Pc Support Specialist Relationship Specialty Start Date End Date None None PCP - General 02/02/18 10/11/19 documented as of this encounter
--- OUTSIDE RECORDS SUMMARY | 2024-06-07 22:49 | XMS_ITS | Encounter Summary ---
Author Organization [facility] Address [facility] [place] [address] Care Team Providers Care Collection Agent Name Role Phone None Primary Care Provider Unavailabl e Encounter Details Date Type Department Care Team (Late st Contact Info) Description 09/08/2011 Interpretation Only Radiology 1 [facility] [place] [address] Unknown None Social History Tobacco Use Types [...] Priority Date/Time Associated Diagnosis Comments US OB LIMITED Routine 09/08/2011 12:35 PM EST documented in this encounter Results * US OB Limited (09/08/2011 12:35 PM EST) Anatomical Region Laterality Modality Pelvis, Abdomen Ultrasound 09/08/2011 12:3 5 PM EST Narrative 09/08/2011 12:35 PM EST APD Historical Result Principal Core Placer: ??DOLORES ??CHERI De La Vega Suazo [facility] OBSTETRICAL ULTRASOUND REPORT ? -------- Pat. Name: LESTERDEE SORIANOANA ?Study Date: ?? 09/08/2011 1:59pm Pat. No: ?? [id number] ?Referring MD: LIVE LMP: ? 04/07/2011 ?Unit Aid: ??KVNG SALAZAR GA by LMP: 22.0 weeks ?, Age: ? 1985, 25 GA by 1st: 22.2 weeks ?GA Selected: ??22.2 weeks (From First U) GA by US: ??22.4 weeks ?BRIGHT: ?01/11/2012 Hist/Ind: -------- MEASUREMENTS & AGE ? GROWTH EVALUATION Measurement ?? GA ? Range ?Source ?? % for 22.2 Ratios ------- ------- ?? BPD ??5.5 cm 22.7 wk (21.0-24.4) Hadlock ??BPD ??64% ?? FL/BPD 0.70 HC ??20.4 cm 22.5 wk (21.0-24.0) Hadlock ??HC ?? 60% ?? FL/AC ??0.22 (0.20 - 0.24) AC ??17.3 cm 22.3 wk (20.2-24.4) Hadlock ??AC ?? 52% ?? HC/AC ??1.18 (1.04 - 1.23) FL ?? 3.8 cm 22.3 wk (20.5-24.1) Hadlock ??FL ?? 52% ?? CI ? 0.74 (0.70 - 0.86) GA for sonogram 22.4 wk (20.7-24.2) ? Weight Estimate: based on (BPD,HC,AC,FL) Avg ?Weight: 492 gm (421-564) Hadlock : 1lbs, 1oz Normal: 492 gm (328-932) [facility] Wt% ? 50% for 22.2 wks -------- CLINICAL SUMMARY TRANSABDOMINAL IMAGING WAS PERFORMED SIMONS INTRAUTERINE GESTATION IN CEPHALIC PRESENTATION PLACENTAL LOCATION is anterior. SIZE is appropriate for gestational age . GROWTH:normal growth, corresponds with prior study MORPHOLOGY: Four-chamber view of the heart unremarkable. Stomach, kidneys and bladder unremarkable. facial profile appears normal. MOTION NOTED. HEART RATE: 144 /bpm. This fetus is MALE, patient knows. STUDY LIMITED BY MATERNAL BODY HABITUS SURVEY COMPLETE Lexy ENGLISH RDMS ?Dolores Huff MD ? <Electronic Signature> 09/09/2011 Procedure Note Unknown - 04/25/2019 APD Historical Result Principal Core Placer: DOLORES Suazo [facility] OBSTETRICAL ULTRASOUND REPORT Pat. Name: EMILY CHAPA Study Date: 09/08/2011 1:59pm Pat. No: [id number] Referring MD: LIVE LMP: 04/07/2011 Unit Aid: KVNG SALAZAR GA by LMP: 22.0 weeks , Age: 03 1985, 25 GA by 1st: 22.2 weeks [facility] GA by US: 22.4 weeks BRIGHT: 01/11/2012 Hist/Ind: MEASUREMENTS & AGE GROWTH EVALUATION Measurement GA Range Source % for 22.2 Ratios ------- ------- BPD 5.5 cm 22.7 wk (21.0-24.4) Hadlock BPD 64% FL/BPD 0.70 HC 20.4 cm 22.5 wk (21.0-24.0) Hadlock HC 60% FL/AC 0.22 (0.20 -0.24) AC 17.3 cm 22.3 wk (20.2-24.4) Hadlock AC 52% HC/AC 1.18 (1.04 -1.23) FL 3.8 cm 22.3 wk (20.5-24.1) Hadlock FL 52% CI 0.74 (0.70 -0.86) GA for sonogram 22.4 wk (20.7-24.2) Weight Estimate: based on (BPD,HC,AC,FL) Avg Weight: 492 gm (421-564) Hadlock : 1lbs, 1oz Normal: 492 gm (328-932) [facility] Wt% 50% for 22.2 wks CLINICAL SUMMARY TRANSABDOMINAL IMAGING WAS PERFORMED SIMONS INTRAUTERINE GESTATION IN CEPHALIC PRESENTATION PLACENTAL LOCATION is anterior. SIZE is appropriate for gestational age . GROWTH:normal growth, corresponds with prior study MORPHOLOGY: Four-chamber view of the heart unremarkable. Stomach, kidneys and bladder unremarkable. facial profile appears normal. MOTION NOTED. HEART RATE: 144 /bpm. This fetus is MALE, patient knows. STUDY LIMITED BY MATERNAL BODY HABITUS SURVEY FRANK GUEVARA MD <Electronic Signature> 09/09/2011 Unknown IMG US OB ORDERABLES documented in this encounter Visit Diagnoses Not on filedocumented in this encounter Care Teams Collection Agent Relationship Specialty Start Date End Date None None PCP - General 02/02/18 10/11/19 documented as of this encounter
--- OUTSIDE RECORDS SUMMARY | 2024-06-07 22:49 | XMS_ITS | Encounter Summary ---
Author Organization [facility] Address [address] [facility] [place] [address] Care Team Providers Care Cloud Solutions Architect Name Role Phone None Primary Care Provider Unavailabl e Encounter Details Date Type Department Care Team (Late st Contact Info) Description 06/03/2011 Interpretation Only Radiology [address] [facility] [place] [address] Unknown None Social History Tobacco Use Types [...] Priority Date/Time Associated Diagnosis Comments US OB TRANSVAGINAL Routine 06/03/2011 1: 01 PM EDT documented in this encounter Results * US OB Viability Transvaginal (06/03/2011 1:01 PM EDT) Anatomical Region Laterality Modality Pelvis, Abdomen Ultrasound 06/03/2011 1:01 PM EDT Narrative 06/03/2011 1:01 PM EDT APD Historical Result Principal Conveyor Tender [employer]: ??ABBY ??SACHIN [facility] OBSTETRICAL ULTRASOUND REPORT ? -------- Pat. Name: DEE CHAPAANA ?Study Date: ?? 06/03/2011 1:36pm Pat. No: ?? [id number] ?Referring MD: LIVE LMP: ? 04/07/2011 ?Fresh Foods Technician: ??C ??FRANK BOLIVAR GA by LMP: 08.1 weeks ?, Age: ? 1985, 25 GA by [facility]: ? GA Selected: ??08.3 weeks (Sonographic) GA by US: ??08.3 weeks ?BRIGHT: ?01/11/2012 Hist/Ind: ??IRREG MENSES -------- MEASUREMENTS & AGE ? GROWTH EVALUATION Measurement ?? GA ? Range ?Source ?? % for 08.3 Ratios ------- ------- ?? CRL ??1.8 cm 08.3 wk (07.6-09.0) Hadlock ??CRL ??50% GA for sonogram 08.3 wk (07.6-09.0) ? Weight Estimate: based on (CRL) Avg ? Weight: ??gm (-) -------- CLINICAL SUMMARY AMENORRHEA ??IRREG MENSES TRANSVAGINAL AND TRANSABDOMINAL IMAGING WAS PERFORMED-ALTHOUGH TRANSVAGINAL IMAGING WAS POOR DUE TO PT BODY HABITUS. SIMONS INTRAUTERINE GESTATION. SIZE is appropriate for gestational age . MOTION NOTED. HEART RATE: 168 /bpm. LEFT OVARY measures: not seen. RIGHT OVARY measures: 29 x 26 x 19 mm. Yolk sac seen-normal. Yanira BOLIVAR RDMS ? Abby Martin MD ? <Electronic Signature> 06/03/2011 Procedure Note Unknown - 04/25/2019 APD Historical Result Principal Conveyor Tender [employer]: ABBY [facility] OBSTETRICAL ULTRASOUND REPORT Pat. Name: EMILY CHAPA Study Date: 06/03/2011 1:36pm Pat. No: [id number] Referring MD: WILBERSAPNA LMP: 04/07/2011 Fresh Foods Technician: Yanira BOLIVAR RDMS GA by LMP: 08.1 weeks , Age: 03 1985, 25 GA by 1st: GA Selected: 08.3 weeks(Sonographic) GA by US: 08.3 weeks BRIGHT: 01/11/2012 Hist/Ind: IRREG MENSES MEASUREMENTS & AGE GROWTH EVALUATION Measurement GA Range Source % for 08.3 Ratios ------- ------- CRL 1.8 cm 08.3 wk (07.6-09.0) Hadlock CRL 50% GA for sonogram 08.3 wk (07.6-09.0) Weight Estimate: based on (CRL) Avg Weight: gm (-) CLINICAL SUMMARY AMENORRHEA IRREG MENSES TRANSVAGINAL AND TRANSABDOMINAL IMAGING WAS PERFORMED-ALTHOUGHTRANSVAGINAL IMAGING WAS POOR DUE TO PT BODY HABITUS. SIMONS INTRAUTERINE GESTATION. SIZE is appropriate for gestational age . MOTION NOTED. HEART RATE: 168 /bpm. LEFT OVARY measures: not seen. RIGHT OVARY measures: 29 x 26 x 19 mm. Yolk sac seen-normal. FRANK SAUL MD <Electronic Signature> 06/03/2011 Unknown IMG US OB ORDERABLES documented in this encounter Visit Diagnoses Not on filedocumented in this encounter Care Teams Cloud Solutions Architect Relationship Specialty Start Date End Date None None PCP - General 02/02/18 10/11/19 documented as of this encounter
--- OUTSIDE RECORDS SUMMARY | 2024-06-07 22:49 | XMS_ITS | Encounter Summary ---
Author Organization [facility] [place] [address] Care Team Providers Care Mica Miner Blasting Name Role Phone None Primary Care Provider Unavailabl e Reason for Visit * Reason Onset Date Comments Follow-up 03/08/2018 Encounter Details Date Type Department Care Team (Late st Contact Info) Description 03/08/2018 Telephone Obstetrics [place] [address] Jaimie Burr, [facility] DR OBSTETRICS & [place] [address] Follow-up Social History Tobacco Use Types Packs/Day Years [...] Miscellaneous Notes * Telephone Encounter - Jaimie Hernandez, [facility] - 03/08/2018 12:58 PM EDT Genetic Counseling Telephone Note: Follow up with Emily re: carrier screening. Records were received from her former garment turner on [place], documenting negative CF and Fragile X screening. Results did not include any screening for conditions more common in the Congregation population. Emily recalled that she had been referred to see a genetic counselor for this screening, and that it was all good news. She is not concerned. Regarding her low MCV, the records document a slightly higher MCV (82.9) and a normal hemoglobin A2 (2.5%). The method of the hemoglobin electrophoresis was not specified, but this result significantly lowers the risk she could be a carrier for beta-thalassemia. Alpha-thalassemia (two deletions) is still a possibility, but unlikely the fetus would be at risk given the couple's ancestries. If she wants to pursue this further, her 's MCV should be evaluated. She could have alpha thalassemia DNA screening sent out to [facility]. We discussed to what end would she have all this testing. She is inc lined not to pursue this further. Emily's biggest concern is her recent lightheadedness. She wonders if this has anything to do withher borderline low MCV. She plans to follow up at her next visit. Records will be sent to scan. documented in this encounter Plan of Treatment Not on file documented as of this encounter Visit Diagnoses Not on filedocumented in this encounter Care Teams Mica Miner Blasting Relationship Specialty Start Date End Date None None PCP - General 02/02/18 10/11/19 documented as of this encounter
--- OUTSIDE RECORDS SUMMARY | 2024-06-07 22:49 | XMS_ITS | Encounter Summary ---
Author Organization [facility] [place] [address] Care Team Providers Care Welt Butter Hand Name Role Phone None Primary Care Provider Unavailabl e Reason for Visit * Reason Comments Follow-up Encounter Details Date Type Department Care Team (Late st Contact Info) Description 06/30/2018 2:30 PM EDT Routine Obstetrics [place] [address] Yael Maya MD [facility] [address] [place] [address] GA: 32w0d Social History Tobacco Use Types Packs/Day Years [...] Sign Reading Time Taken Comments Blood Pressure 122/81 06/30/2018 2:37 PM EDT Pulse - - Temperature - - Respiratory Rate - - Oxygen Saturation - - Inhaled Oxygen Concentration - - Weight 108.5 kg (239 lb 1.6 oz) 06/30/2018 2:37 PM EDT Height - - Body Mass Index 41.04 02/02/2018 10:56 AM EDT documented in this encounter Progress Notes * Paige Ly CCMA - 06/30/2018 2:30 PM EDT The patient denies travel by her or her partner to an area with endemic Zika infection including [place]. * Yael Maya MD - 06/30/2018 2:30 PM EDT Feeling good. No LOF, VB, ctxns. + FM. Having carpal tunnel symptoms at night. DIscussed TOLAC. She is interested in repeat C/S, unless she goes into labor and progresses well. Requesting C/S for 08/26 since that is my OB doc day. Requested. She signed consent. Hand splints. F/U in 4 wks. documented in this encounter Plan of Treatment Not on file documented as of this encounter Visit Diagnoses Diagnosis Encounter for supervision of other normal in third trimester Desires tubal ligation Tubal ligation status documented in this encounter Care Teams Welt Butter Hand Relationship Specialty Start Date End Date None None PCP - General 02/02/18 10/11/19 documented as of this encounter
--- OUTSIDE RECORDS SUMMARY | 2024-06-07 22:49 | XMS_ITS | Encounter Summary ---
Author Organization [facility] [place] [address] Care Team Providers Care Superintendent Plant Protection Name Role Phone None Primary Care Provider Unavailabl e Encounter Details Date Type Department Care Team (Late st Contact Info) Description 08/27/2018 Telephone Obstetrics [place] [address] Charan Guido MD [facility] DR OBSTETRICS & [place] [address] Social History Tobacco Use Types Packs/Day Years [...] encounter Miscellaneous Notes * Telephone Encounter - Charan Guido - 08/27/2018 2:19 AM EDT Telephone Note: Returned call to boning room worker pager. Spoke with Emily Norman's because she was in too much pain to speak with me. He reports she's had painful contractions every four minutes or less for the last hour. Denies vaginal bleeding, loss of fluid. Thinks there may be decreased movement. Recommended they come in for evaluation. Of note, Emily is a TOLAC with two prior sections. She is also GBS positive. CHARAN GUIDO MD PGY4 08/27/18 documented in this encounter Plan of Treatment Not on file documented as of this encounter Visit Diagnoses Not on filedocumented in this encounter Care Teams Superintendent Plant Protection Relationship Specialty Start Date End Date None None PCP - General 02/02/18 10/11/19 documented as of this encounter
--- OUTSIDE RECORDS SUMMARY | 2024-06-07 22:49 | XMS_ITS | Encounter Summary ---
Author Organization [facility] [place] [address] Care Team Providers Care Tool Hardener Name Role Phone None Primary Care Provider Unavailabl e Reason for Visit * Reason Comments Routine Visit Encounter Details Date Type Department Care Team (Late st Contact Info) Description 05/09/2018 2:00 PM EDT Routine Obstetrics [place] [address] Rosemarie Sanches MD [address] [place] [address] OBSTETRICS [place] [address] GA: 24w4d Social History Tobacco Use Types Packs/Day Years [...] Sign Reading Time Taken Comments Blood Pressure 119/71 05/09/2018 2:11 PM EDT Pulse - - Temperature - - Respiratory Rate - - Oxygen Saturation - - Inhaled Oxygen Concentration - - Weight 105.9 kg (233 lb 6.4 oz) 05/09/2018 2:11 PM EDT Height - - Body Mass Index 40.06 02/02/2018 10:56 AM EDT documented in this encounter Progress Notes * Paige Ly CCMA - 05/09/2018 2:00 PM EDT The patient denies travel by her or her partner to an area with endemic Zika infection including [place]. The OB identification card, Glucose screening directions (if applicable) along with the Guide to [place] was given to the patient. The materials were discussed and the patient was encouraged to read the information and direct questions to the provider. * Rosemarie Chopra MD - 05/09/2018 2:00 PM EDT S: Emily MagallonLaraKarime presents to the clinic at 24w4d for a routine appointment. She denies any loss of fluid per vagina, vaginal bleeding, abdominal pain or cramping. She reports good movement. She has experienced nausea and vomiting a few times a week, as well as early satiety. We discussed TOLAC, and she was still deciding on vaginal vs delivery. We discussed tubal and she was interested, and signed the Medicaid consent. O: BP 119/71 Wt 105.9 kg (233 lb 6.4 oz) LMP 11/18/2017 BMI 40.06 kg/m2 A/P: 32 y.o. at 24w4d gestation - Fundal Height: exam limited by habitus - Return for follow up appointment at 28 weeks - Ordered 28 week labs (1 hr GTT and CBC). - Reviewed signs and symptoms of labor and other reasons to call. - Gave information on TOLAC - Reviewed weight gain guidelines during . Encouraged to eat frequent small protein-rich meals. Patient was discussed with attending physician Dr. Shashi Chopra MD PGY1 05/09/2018 * Sabina Danielle MD - 05/09/2018 2:00 PM EDT I have seen the patient and reviewed the Dr. Chopra's above history and I agree with the details aswritten. The assessment and plan were formulated in discussion with me and I agree with them as documented. Issues addressed today: ?? Weight loss and nausea. Tolerating PO but does have nausea. Denies reflux sxs. Does not want medication for nausea. Encouraged small, frequent protein meals and snacks. Reviewed recommendation kek18-43 lb weight gain based on prepreg BMI. F/u for weight gain at next visit ?? If fundal height exams limited by habitus, consider growth US in 3rd trimester. ?? History of x 2. First was in [place] (per patient for failed induction, 1 cm dilated). Second at [place]. Operative note for 2nd C/S in scanned docs, reviewed - LTCS with some right sided adhesions along uterus and round ligament. Emily is considering repeat due to scar tissue because concerned about how long it may take to get to down to baby through the scar tissue. Gave paperwork - schedule formal consult with tubal consult. ?? Desires tubal ligation. Federal consent signed. Needs consult. ?? 28 week labs ordered ?? Return to clinic 4 weeks Sabina Danielle MD documented in this encounter Plan of Treatment Not on file documented as of this encounter Results * Gestational Diabetes Screen (06/02/2018 4:00 PM EDT) Glucose Gestational Screen, 1 Hour 84 65 - 134 mg/dL [facility] Blood specimen (specimen) 06/02/2018 4:00 PM EDT 06/02/2018 4:11 PM EDT Narrative Resulting Agency Comment Spec In Lab Sabina Danielle MD CHEMISTRY ORDERABLES [facility] [place] [address] * (ABNORMAL) Hematocrit (06/02/2018 4:00 PM EDT) Hematocrit 35.1(L) 35.7 - 45.8 % [facility] Blood specimen (specimen) 06/02/2018 4:00 PM EDT 06/02/2018 4:11 PM EDT Narrative Resulting Agency Comment Spec In Lab Sabina Danielle MD HEMATOLOGY ORDERABLE S [facility] [place] [address] * Hemoglobin (06/02/2018 4:00 PM EDT) Hemoglobin 12.2 11.7 - 15.5 gm/dL [facility] Blood specimen (specimen) 06/02/2018 4:00 PM EDT 06/02/2018 4:11 PM EDT Narrative Resulting Agency Comment Spec In Lab Sabina Danielle MD HEMATOLOGY ORDERABLE S Performing Organization Address City/Va Hospital/ZIP Co de Phone Number [facility] [place] [address] documented in this encounter Visit Diagnoses Diagnosis Encounter for supervision of other normal in first trimester documented in this encounter Care Teams Tool Hardener Relationship Specialty Start Date End Date None None PCP - General 02/02/18 10/11/19 documented as of this encounter
--- OUTSIDE RECORDS SUMMARY | 2024-06-07 22:49 | XMS_ITS | Encounter Summary ---
[place] [address] Care Team Providers Care Cmm Programmer Name Role Phone None Primary Care Provider Unavailabl e Encounter Details Date Type Department Care Team (Late st Contact Info) Description 07/16/2011 Orders Only Radiology and Cardiology Results [address] [place] [address] Apd Conversion, Results Provider, Social [...] Procedure Name Priority Date/Time Associated Diagnosis Comments CYTOPATHOLOGY GYNECOLOGICAL Routine 07/16/2011 documented in this encounter Results * (ABNORMAL) Cytopathology Gynecological (07/16/2011) Belly Packer Cytology Final Report Please see Yolette Fenton legacy report(Exte rnal Lab) YOLETTE FENTON CONVERSION 07/16/2011 Narrative YOLETTE FENTON CONVERSION - 07/23/2011 Please see Yolette Fenton Legacy report Results Provider Apd Conversion PATHO LOGY/CYTOLOGY ORDERABLES YOLETTE FENTON CONVERSION documented in this encounter Visit Diagnoses Not on filedocumented in this encounter Care Teams Cmm Programmer Relationship Specialty Start Date End Date None None PCP - General 02/02/18 10/11/19 documented as of this encounter
--- OUTSIDE RECORDS SUMMARY | 2024-06-07 22:49 | XMS_ITS | Encounter Summary ---
Author Organization [facility] [place] [address] Care Team Providers Care Hospice Director Name Role Phone None Primary Care Provider Unavailabl e Encounter Details Date Type Department Care Team (Latest Contact Info) Description 08/10/2018 11:15 AM EDT - 08/10/2018 11:59 PM EDT Hospital En[place] [address] Alok Arndt, [facility] & [place] [address] Encounter for supervision of other normal in third trimester Discharge Disposition: Home Social History Tobacco [...] every 4 hours as needed. vitamin with qujdmaxh-Sd-Larz-FA ( VITAMIN) TabletIndications:Encoun ter for supervision of [...] Priority Date/Time Associated Diagnosis Comments US OB FOLLOW UP Routine 08/10/2018 12:50 PM EDT Encounter for supervision of other [...] 01:27 pm) PATIENT INFO: ID #: ? [id number] ?: ??[birth year] (32 yrs) Name: ? EMILY B ? Visit Date: 08/10/2018 12:33 pm ? MCKENNA- ? SAMMI PERFORMED BY: Performed By: ? Melonie Fox RDMS Attending: ?Melanie Blanchard MD Referred By: ?ALOK GUZMANOvi Location: ? [place] SERVICE(S) PROVIDED: ??UOBFOL - Efw - Growth ??- [place] - [id number] INDICATIONS: ??37 weeks gestation of ?Z3A.37 ??follow [...] 08/10/2018 01:27 pm) PATIENT INFO: ID #: [id number] : [birth year] (32 yrs) Name: EMILY Rodriguez Visit Date: 08/10/2018 12:33 pm DARREL CHAPA PERFORMED BY: Performed By: Melonie Fox RDMS Attending: Melanie Blanchard MD Referred By: ALOK ARNDT Location: [facility] SERVICE(S) PROVIDED: UOBFOL - Efw - Growth - [place] - [id number] INDICATIONS: 37 weeks gestation of Z3A.37 follow [...] Electronically Signed Final Report 08/10/2018 01:27 pm Alok Arndt CNM IMG US OB ORDERABLE S documented in this encounter Visit Diagnoses Diagnosis Encounter for supervision of other normal in third trimester documented in this encounter Care Teams Hospice Director Relationship Specialty Start Date End Date None None PCP - General 02/02/18 10/11/19 documented as of this encounter
--- OUTSIDE RECORDS SUMMARY | 2024-06-07 22:50 | XMS_ITS | Patient Health Record ---
Author Organization [facility] Address [address] [place] [address] Care Team Providers Care Melt House Supervisor Name Role Phone Lea FAITH, Briseida Unavailable [phone] Allergies Allergen (clinical drug ingredient) Drug/Non Drug Allergy documented on EMR Reaction Allergy Type Onset Date Status amoxicillin / clavulanate Augmentin hives Drug Allergy Active Reason For Referral No Information Medications Medication SIG (Take, Route, Frequency, Duration) Notes Start Date End Date Status Provera 10 MG 1 tablet with food Orally 10 mg po QD x 2wks, then 20 mg PO QD ongoing for 90 days 01/25/2020 Not-Taking Mirena 20 MCG/24HR as directed Intrauterine new in approx 09/2018 Active Tylenol Extra Strength PRN, rare Not-Taking Ibuprofen PRN Not-Taking Social History Tobacco Use: Social History Observation Description Date Details (start date - stop date) Former Smoker NA - NA Smoking Question Answer Notes Are you a: former smoker Problems Problem Type SNOMED Code ICD Code Onset Dates Problem Status W/U Status Risk Notes Problem Irregular menstrual cycle (02376929) Irregular menstrual cycle (626.4) Active confirmed likely due to Mirena Problem Sprain of sacroiliac region (094109016) Other specified sites of sacroiliac region sprain and strain (846.8) Active confirmed right sacroiliac pain Problem Migraine with aura (6149028) Migraine with aura, not intractable, without status migrainosus (G43.109) Active confirmed Problem Spasm (69487168) Contracture of muscle, other site (M62.48) Active confirmed right psoas, rectus, and pelvic floor myofascial pain Problem Postprocedural pelvic peritoneal adhesions (720065432) Postprocedural pelvic peritoneal adhesions (N99.4) Active confirmed s/p C/S x 2, surgery for ectopic Problem Pelvic and perineal pain (574078258) Pelvic and perineal pain (R10.2) Active confirmed chronic pelvic pain, likely primarily due to severe adhesions of uterus to anterior abdominal wall, with subsequent development of myofascial pain not improved with pelvic PT; also possible adenomyosis Problem Intrauterine contraceptive device in situ (finding) (027003734) Presence of (intrauterine) contraceptive device (Z97.5) Active confirmed [facility] Problem Late effect of medical and surgical care complication (520343270) Displacement of intrauterine contraceptive device, sequela (T83.32XS) Active confirmed Plan Of Treatment No Information Insurance Providers Payer Name Payer Address Payer Phone Subscriber Number Group Number Insured Name Patient Relationship to Insured Coverage Start Date Coverage End Date [place]ICAID [place] [address] [place] [address] [phone] [id number] Emily Arzola Self - patient is the insured Medical (General) History Medical History History ICD Code (c/s x 2, ectopic, then ) hx R ectopic 2009 - laparoscop ic R salpingectomy Thalacemia Migraines with aura Rosacea chronic pelvic pain severe pelvic adhesive disease (dense ad hesions of uterus to ant abd wall) abdominopelvic myofascial pain, right sa croiliacitis Mirena 2011 - 2016, and again in approx 09/2018 after Last PAP: 08/29/15 NIL, neg H PV - done in approx 12/2017 per patient - told normal Surgical History Surgery Date(Month/Year) Jaw surgery 1996 2007 laparoscopic R salpingectomy for ectopic , [facility] (preserved both ovaries) 2009 C/S 2011 Hospitalization History Reason Date(Month/Year) vaginal childbirth 2017
== END 2024-06-07 22:48 | disposition home or self-care (01) ==
LOC: LBN 22:47
PROVIDERS: Visit Provider Family Medicine
DX: E66.9 Obesity, unspecified (principal)
CPT/HCPCS: 80053; 80061; 83036

== ENCOUNTER 2024-07-12 12:11 | Emergency (ER) | payer MEDICAID, SELFPAY ==
--- NOTE | 2024-07-12 12:15 | RT.EKG_ITS ---
APPROVED REPORT Exam: Resting ECG Reason for Exam: chest pain Patient Location: E HR:95 bpm ECG Measurements Heart Rate 95 AXIS NE 143 P 66 QRSd 88 QRS 42 QT 370 T 70 QTc 465 Conclusion Incomplete analysis due to missing data in precordial lead(s) Sinus rhythm...normal P axis, V-rate 60- 99
[2024-07-12 12:23] VITALS: BP 142/89; PULSE 94; RESP 20; TEMP 36.9; O2SAT 98
--- OUTSIDE RECORDS SUMMARY | 2024-07-12 12:47 | XMS_ITS | Clinical Summary ---
Author Organization [facility] Address [facility] [address] Care Team Providers Care Hygiene Assistant Name Role Phone Tamie Her MD Primary Care Provider [phone] Allergies Active Allergy Reactions Criticality Noted Date [...] Overview (06/07/2018): 2 prior LTCS. 1st on [place] for failure to progress during IOL (got to 1 cm per patient). 2nd at [place] - LTCS, some adhesions on right aspect of uterus [...] FIRST TRIMESTER NOB labs Normal Aneuploidy screen [place] low risk CF screen Normal in prior preg per pt SMA screen Desires Other: early GCT, aspirin, TSH Early 1 hr ordered CUSTOM GARMENT DESIGNER/Behavioral Health consult/ATP MFM/genetics Genetics for [place] SECOND TRIMESTER 18-20 week US scan Unilateral DESIZING MACHINE OPERATOR, otherwise normal morph, male fetus, anterior placenta Tubal paper signed Signed 05/09 THIRD TRIMESTER 28 week labs 12.135, 1hr 84 testing SBIRT GBS 36 week STD labs Contraception Tubal papers signed Tubal if c/s. Medicaid consent signed. Infant nutrition Breast Child education preferences Hand Cutter/ issues/ Circumcision Vanita Planning IMMUNIZATIONS Influenza TDAP [...] had her ectopic and her c- section. Encounters Date Type Department Care Team Description 06/24/2024 Transcribe Orders eD Incoming Referrals [phone] Tamie Her MD Eczema, unspecified type 06/20/2024 Transcribe Orders eD Incoming Referrals [phone] Tamie Her MD Obesity, unspecified classification, unspecified obesity type, unspecified whether serious comorbidity present from Last 3 Months Immunizations Name Administration Dates Next Due Influenza [...] 12/26/2003 Covid-19 Vaccine (1 - 2022-24 season) 2024 Influenza (Flu) vaccine (1 o f 1 [...] 3:19 PM EDT HIV SCREEN, 4TH GENERATION ([facility]) Routine 02/02/2018 12:07 PM EDT Encounter for related examination in first trimester from Last 3 Months or Most Recently Relevant to Health Maintenance Results * Hepatitis C Antibody (05/12/2021 3:55 PM EDT) Hepatitis C Antibody Negative Negative [facility] Blood 05/12/2021 3:55 PM EDT 05/12/2021 4:06 PM EDT Narrative Resulting Agency Comment Spec In Lab Vani Maldonado MD CHEMISTRY ORDERABL ES [facility] [place] [address] * Lipid Panel (Reflex Direct LDL) (05/12/2021 3:55 PM EDT) Cholesterol, Total 229 mg/dL [facility] Comment: Lower Risk: <200 mg/dL Average Risk: 200-239 mg/dL Higher Risk: >fl=798 mg/dL Triglyceride 134 mg/dL [facility] Comment: Average Risk/Lower Risk: <150 mg/dL Borderline High Risk: 150-199 mg/dL High Risk: 200-499 mg/dL Very High Risk: >fg=803 mg/dL HDL Cholesterol 43 mg/dL [facility] Comment: Males: ?? Higher Risk: <40 mg/dL Females: ?? Higher Risk: <50 mg/dL LDL Cholesterol 159 mg/dL [facility] Comment: Lowest Risk: <100 mg/dL Lower Risk: 100-129 mg/dL Borderline High Risk: 130-159 mg/dL High Risk: 160-189 mg/dL Very High Risk: >tf=346 mg/dL Cholesterol/HDL Ratio 5.3 ratio [facility] Lipid Interpretation See Note [facility] Comment: Lipid management should be guided by a patient? s ASCVD risk, goals and preferences. ACC/AHA Guidelines recommend high intensity statin if clinical ASCVD or LDL greater than or equal to 190 mg/dL. http://Contacts+/ZYN-MKH-Iluogtwwq Adults aged 40-75 with LDL 70-189 mg/dL should have their 10 year ASCVD risk estimated with the ACC/AHA ASCVD risk chief estimator http://tools.acc.org/YVZOQ-Vfpr-Cvsahkksn/ Statin should be discussed if risk greater [...] Lab Vani Maldonado MD CHEMISTRY ORDERABL ES [facility] [place] [address] * (ABNORMAL) External Pap Smear (04/15/2021 3:19 PM EDT) External PAP Smear Negative(E xternal Lab) EXTERNAL LAB HPV (RESULT) Negative(E xternal Lab) EXTERNAL LAB 04/15/2021 3:19 PM EDT Historical Provider EXTERNAL LAB KAPIL TORIBIO EXTERNAL LAB * HIV Screen, 4th Generation (02/02/2018 12:07 PM EDT) HIV Ab/Ag Screen Negative Negative [facility] Comment: This 4th Generation HIV [...] In Lab Yael Maya MD CHEMISTRY ORDERABLES Performing Organization Address City/[facility]/ZIP Co de Phone Number [facility] [place] [address] from Last 3 Months or Most Recently Relevant to Health Maintenance Advance Directives * Full Code (Latest Code Status on File) Date Activated Date Inactivated Comments 08/27/2018 6:37 AM 08/29/2018 1:47 PM Question Answer Comments Does patient have capacity to make decision: Yes Care Teams Hygiene Assistant Relationship Specialty Start Date End Date Tamie Her MD [address] [place] [address] PCP - General Family Medicine 06/20/24
--- OUTSIDE RECORDS SUMMARY | 2024-07-12 12:47 | XMS_ITS | Encounter Summary ---
Author Organization [facility] Address [facility] [address] Care Team Providers Care Torch Shearer Name Role Phone Oscar Garduno MD Primary Care Provider [phone] Encounter Details Date Type Department Care Team (Late st Contact Info) Description 05/27/2021 Telephone Internal Medicine at [facility] [address] [place] [address] Laurence Eller Social History Tobacco Use Types [...] to schedule from a referral to our engine room helper Tia Crawford. Voicemail not accepting new messages at this time so could not leave a message. Letter being sent to contact us. documented in this encounter Plan of Treatment Not on file documented as of this encounter Visit Diagnoses Not on filedocumented in this encounter Care Teams Torch Shearer Relationship Specialty Start Date End Date Oscar Garduno MD [facility] [place] [address] PCP - General General Internal Medicine 05/07/2104/24 documented as of this encounter
--- OUTSIDE RECORDS SUMMARY | 2024-07-12 12:47 | XMS_ITS | Encounter Summary ---
Author Organization [facility] [place] [address] Care Team Providers Care Social Service Liaison Name Role Phone Tamie Her MD Primary Care Provider Reason for Referral * Consultation (Routine) - Authorized Specialty Diagnoses / Procedures Referred By Contac t Referred To Contact Dermatology Diagnoses Dermatitis, unspecified ECZEMA Tamie Her MD [address] [place] [address] [facility] Dermatology [address] [place] [address] Referral ID Status Reason Start Date Expiration Date Visits Requested Visits Authorized [id number] Authorized Consult, Test & Treat PCP Updated and/or Approved 06/07/2024 06/07/2025 6 6 Encounter Details Date Type Department Care Team (Latest Contact Info) Description 06/24/2024 Transcribe Orders eDH Incoming Referrals [phone] Tamie Her MD [address] [place] [address] Eczema, unspecified type Social History Tobacco Use Types Packs/Day Years [...] as of this encounter Plan of Treatment Scheduled Referrals Name Type Priority Associated Diagnoses Orde r Schedule Referral to Dermatology Outpatient Referral Routine Eczema, unspecified type Ordered: 06/24/2024 documented as of this encounter Visit Diagnoses Diagnosis Eczema, unspecified type documented in this encounter Care Teams Social Service Liaison Relationship Specialty Start Date End Date Tamie Her MD [address] [place] [address] PCP - General Family Medicine 06/20/24 documented as of this encounter
--- OUTSIDE RECORDS SUMMARY | 2024-07-12 12:47 | XMS_ITS | Encounter Summary ---
[place] [address] Care Team Providers Care Senior Production Supervisor Name Role Phone Tamie Her MD Primary Care Provider Reason for Referral * Consultation (Routine) - Authorized Specialty Diagnoses / Procedures Referred By Contac t Referred To Contact Weight and Wellness Diagnoses Obesity, unspecified classification, unspecified obesity type, unspecified whether serious comorbidity present Tamie Her MD [address] [place] [address] [facility] [place] [address] Referral ID Status Reason Start Date Expiration Date Visits Requested Visits Authorized [id number] Authorized Consult, Test & Treat PCP Updated and/or Approved 06/07/2024 06/07/2025 6 6 Encounter Details Date Type Department Care Team (Latest Contact Info) Description 06/20/2024 Transcribe Orders eDH Incoming Referrals [phone] Tamie Her MD [address] [place] [address] Obesity, unspecified classification, unspecified obesity type, unspecified whether serious comorbidity present Social History Tobacco Use Types Packs/Day Years [...] Associated Diagnoses Orde r Schedule Referral to [facility] Outpatient Referral Routine Obesity, unspecified classification, unspecified obesity type, unspecified whether serious comorbidity present Ordered: 06/20/2024 documented as of this encounter Visit Diagnoses Diagnosis Obesity, unspecified classification, unspecified obesity type, unspecified whether serious comorbidity present documented in this encounter Care Teams Senior Production Supervisor Relationship Specialty Start Date End Date Tamie Her MD [address] [place] [address] PCP - General Family Medicine 06/20/24 documented as of this encounter
--- OUTSIDE RECORDS SUMMARY | 2024-07-12 12:48 | XMS_ITS | Encounter Summary ---
[place] [address] Care Team Providers Care Account Administrator Name Role Phone Unknown Primary Care Provider Unavailabl e Encounter Details Date Type Department Care Team (Late st Contact Info) Description 01/29/2011 Orders Only Obstetrics [place] [address] Yareli Ly MD [facility] [address] OBSTETRICS & [place] [address] Social History Tobacco Use Types Packs/Day Years Used Date Smoking Tobacco: Never Assessed Sex and Gender Information Value Date Recorded Sex Assigned at Not on file Gender Identity Not on file Sexual Orientation Not on file documented as of this encounter Plan of Treatment Not on file documented as of this encounter Visit Diagnoses Not on filedocumented in this encounter Care Teams Account Administrator Relationship Specialty Start Date End Date Unknown None PCP - General 01/20/11 07/03/12 documented as of this encounter
--- OUTSIDE RECORDS SUMMARY | 2024-07-12 12:48 | XMS_ITS | Encounter Summary ---
[place] [address] Care Team Providers Care Service Station Operator Name Role Phone None Primary Care Provider Unavailabl e Encounter Details Date Type Department Care Team (Latest Contact Info) Description 06/02/2018 3:50 PM EDT Laboratory Appointment Lab [address] [place] [id number] Encounter for supervision of other normal in [...] 1 Hour 84 65 - 134 mg/dL [facility] Blood specimen (specimen) 06/02/2018 4:00 PM EDT 06/02/2018 4:11 PM EDT Narrative Resulting Agency Comment Spec In Lab Sabina Danielle MD CHEMISTRY ORDERABLES Performing Organization Address City/[facility]/ZIP Co de Phone Number [facility] [place] [address] * (ABNORMAL) Hematocrit (06/02/2018 4:00 PM EDT) Hematocrit 35.1(L) 35.7 - 45.8 % [facility] Blood specimen (specimen) 06/02/2018 4:00 PM EDT 06/02/2018 4:11 PM EDT Narrative Resulting Agency Comment Spec In Lab Sabina Danielle MD HEMATOLOGY ORDERABLE S Performing Organization Address City/[facility]/ZIP Co de Phone Number [facility] [place] [address] * Hemoglobin (06/02/2018 4:00 PM EDT) Hemoglobin 12.2 11.7 - 15.5 gm/dL [facility] Blood specimen (specimen) 06/02/2018 4:00 PM EDT 06/02/2018 4:11 PM EDT Narrative Resulting Agency Comment Spec In Lab Sabina Danielle MD HEMATOLOGY ORDERABLE S [facility] [place] [address] documented in this encounter Visit Diagnoses Diagnosis Encounter for supervision of other normal in first trimester documented in this encounter Care Teams Service Station Operator Relationship Specialty Start Date End Date None None PCP - General 02/02/18 10/11/19 documented as of this encounter
--- OUTSIDE RECORDS SUMMARY | 2024-07-12 12:48 | XMS_ITS | Encounter Summary ---
Author Organization [facility] [place] [address] Care Team Providers Care In Flight Refueling Operator Name Role Phone None Primary Care Provider Unavailabl e Encounter Details Date Type Department Care Team (Late st Contact Info) Description 07/16/2011 Orders Only Radiology and Cardiology Results [address] [place] [address] Apd Conversion, Results Provider, Social [...] ([facility]) NON REACTIVE(E xternal Lab) NONREACTIVE TANESHA CONKLIN DAY CONVERSION 07/16/2011 1:49 PM EDT Results Provider Apd Conversion IMMUN OLOGY ORDERABLES TANESHA CONKLIN DAY CONVERSION documented in this encounter Visit Diagnoses Not on filedocumented in this encounter Care Teams In Flight Refueling Operator Relationship Specialty Start Date End Date None None PCP - General 02/02/18 10/11/19 documented as of this encounter
--- OUTSIDE RECORDS SUMMARY | 2024-07-12 12:48 | XMS_ITS | Encounter Summary ---
Author Organization [facility] [place] [address] Care Team Providers Care Laboratory Chemical Assistant Name Role Phone MadelineCaleb romo Primary Care Provider [phone] Reason for Visit * Reason Comments Pelvic Pain Abdominal Pain lower right Encounter Details Date Type Department Care Team (Late st Contact Info) Description 07/04/2012 1:15 PM EDT Office [place] [address] Frederick Abad MD [facility] [address] Chronic pelvic pain in female (Primary Dx) [...] or 15. SOCIA HISTORY: She lives in [place] with her and her two children age four and six months. She is breast feeding and she plans on breast feeding until her baby weans herself naturally and this occurred with her son in about the age of three and [age] years. She feels like she is disabled and she has applied for disability. Her is student at [employer]. She has no prior history of alcoholism [...] has not seen the urologist or a grid operator. Her stools are soft, but otherwise normal. [...] reasonable for her to be seen by grid operator and again with the same plan, it would be reasonable for her to have one colonoscopy. Just to make sure that she does not have a short segment of denervated bowel or interstitial cystitis or some other disorder that might better explained her symptoms. She has had a thorough and repeated evaluation from her bilingual sales consultant and I did not repeat a pelvic [...] be to get involve with the personal banking officer, but if this is not possible, then [...] not being able to play with her [id number], because of her 's expectations about her [...] organs documented in this encounter Care Teams Laboratory Chemical Assistant Relationship Specialty Start Date End Date Caleb Shabazz DO [address] [place] [address] PCP - General 07/04/12 02/01/18 documented as of this encounter
--- OUTSIDE RECORDS SUMMARY | 2024-07-12 12:48 | XMS_ITS | Encounter Summary ---
Author Organization [facility] Address One [facility] [place] [address] Care Team Providers Care Residential Program Coordinator Name Role Phone None Primary Care Provider Unavailabl e Encounter Details Date Type Department Care Team (Late st Contact Info) Description 09/08/2011 Interpretation Only Radiology [address] [facility] [place] [address] Unknown None Social History Tobacco Use Types [...] 12:35 PM EST APD Historical Result Principal Floriculture Teacher: ??DOLORES ??CHERI Suazo [facility] OBSTETRICAL ULTRASOUND REPORT ? -------- Pat. Name: EMILY CHAPA ?Study Date: ?? 09/08/2011 1:59pm Pat. No: ?? [id number] ?Referring MD: WILBER^BRYANT LMP: ? 04/07/2011 ?Rotating Equipment Specialist: ??Lazaro HART,KVNG GA by LMP: 22.0 weeks ?, Age: [...] : 1lbs, 1oz Normal: 492 gm (328-932) Jamel Wt% ? 50% for 22.2 wks -------- [...] Unknown - 04/25/2019 APD Historical Result Principal Floriculture Teacher: DOLORES De La Vega Suazo [facility] OBSTETRICAL ULTRASOUND REPORT Pat. Name: EMILY CHAPA Study Date: 09/08/2011 1:59pm Pat. No: [id number] Referring MD: LIVE LMP: 04/07/2011 Rotating Equipment Specialist: KVNG SALAAZR GA by LMP: 22.0 weeks , Age: 03 1985, 25 GA by 1st: 22.2 weeks GA Selected: 22.2 weeks (FromFirst U) GA by US: 22.4 weeks BRIGHT: [...] : 1lbs, 1oz Normal: 492 gm (328-932) Jamel Wt% 50% for 22.2 wks CLINICAL SUMMARY [...] on filedocumented in this encounter Care Teams Residential Program Coordinator Relationship Specialty Start Date End Date None None PCP - General 02/02/18 10/11/19 documented as of this encounter
--- OUTSIDE RECORDS SUMMARY | 2024-07-12 12:48 | XMS_ITS | Encounter Summary ---
Author Organization [facility] [place] [address] Care Team Providers Care Unified Communications Engineer Name Role Phone None Primary Care Provider Unavailabl e Encounter Details Date Type Department Care Team (Late st Contact Info) Description 07/16/2011 Orders Only Radiology and Cardiology Results [address] [place] [address] Apd Conversion, Results Provider, Social [...] encounter Results * (ABNORMAL) Cytopathology Gynecological (07/16/2011) Recreation Superintendent Cytology Final Report Please see Yolette Fenton legacy report(Exte rnal Lab) YOLETTE FENTON CONVERSION 07/16/2011 Narrative YOLETTE FENTON CONVERSION - 07/23/2011 Please see Yolette Fenton Legacy report Results Provider Apd Conversion PATHO LOGY/CYTOLOGY ORDERABLES YOLETTE FENTON CONVERSION documented in this encounter Visit Diagnoses Not on filedocumented in this encounter Care Teams Unified Communications Engineer Relationship Specialty Start Date End Date None None PCP - General 02/02/18 10/11/19 documented as of this encounter
--- OUTSIDE RECORDS SUMMARY | 2024-07-12 12:48 | XMS_ITS | Encounter Summary ---
Author Organization [facility] [place] [address] Care Team Providers Care Restaurant Hourly Team Member Name Role Phone None Primary Care Provider Unavailabl e Reason for Visit * Reason Comments Follow-up Encounter Details Date Type Department Care Team (Late st Contact Info) Description 06/30/2018 2:30 PM EDT Routine Obstetrics [place] [address] Yael Maya MD [facility] DR OBSTETRICS [place] [address] GA: [id number] Social History Tobacco Use Types [...] an area with endemic Zika infection including [place]. * Yael Maya MD - 06/30/2018 2:30 [...] status documented in this encounter Care Teams Restaurant Hourly Team Member Relationship Specialty Start Date End Date None None PCP - General 02/02/18 10/11/19 documented as of this encounter
--- OUTSIDE RECORDS SUMMARY | 2024-07-12 12:48 | XMS_ITS | Encounter Summary ---
Author Organization [facility] [place] [address] Care Team Providers Care Campus President Name Role Phone None Primary Care Provider Unavailabl e Reason for Visit * Reason Comments Genetic Screening * Consultation (Routine) - Closed Specialty Diagnoses / Procedures Referred By Contac t Referred To Contact Obstetrics and Gynecology Diagnoses Encounter for supervision of other normal in first trimester Yael Maya MD [facility] [address] OBSTETRICS [place] [address] [facility] Digital Coordinator [address] [place] [address] Referral ID Status Reason Start Date Expiration Date V isits Requested Visits Authorized [id number] Closed Consult, Test & Treat 02/02/2018 02/02/2019 1 1 Encounter Details Date Type Department Care Team (Late st Contact Info) Description 02/08/2018 8:45 AM EDT Office Visit Obstetrics [place] [address] Jaimie Burr, [facility] OBSTETRICS & [place] [address] Microcytosis; screening encounter Social History Tobacco Use [...] encounter Progress Notes * Jaimie Burr, [facility] - 02/08/2018 8:45 AM EDT Genetic Counseling Note Emily Mcfadden is a 32 y.o. female currently at 11w6d gestation. She was referred to the Diagnosis Program by Yael Maya MD. I met with Emily for a 30 minute geneticcounseling visit. She [...] implications for this . Emily is half Spanish, non-Episcopalian, and half Ashkenazi Episcopalian, and Emerson is Ashkenazi Episcopalian. Consanguinity was denied. Obstetric History T2 L2 [...] The appropriate consent form was reviewed. 3.) Episcopalian ancestry: We reviewed the increased incidence of certain autosomal recessive conditions in the Ashkenazi Episcopalian population. Emily recalled she had at least Elio-Sac carrier screening during a past in [place]. She signed a medical record release so that I may obtain those records. No screening today. 4.) Low MCV: We discussed genetic and non-genetic causes for a low MCV. Ferritin studies were ordered. 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 She does not take iron. 5.) Aneuploidy screening: Emily requests aneuploidy screening with the Roland test. We discussed the differences, benefits and limitations of diagnostic testing and screening, including amniocentesis, and cell-free DNA screening (Roland). Roland screens for the common trisomies: Trisomy 21 (Down syndrome), trisomy 13 and trisomy 18. The general phenotypes of these trisomies and sex chromosome aneuploidies were reviewed. Roland detects approximately 99% and 97% of fetuses with Down syndrome and trisomy 18, respectively. Roland has a lower detection rate for trisomy 13. For these three trisomies, the false positive rate is less than 0.1%. We discussed that the origin of the cell-free DNA is placental, and that there are rare circumstances that the placental DNA is not wire rope sales representative of the DNA. Because false positives do occur, a Roland result indicating a high likelihood for an aneuploidy should be followed up with a discussion of patient specific positive predictivevalue and the usefulness of a karyotype. Amniocentesis is associated with a ~1 in 300 risk ofmiscarriage. Roland does not screen for open neural tube defects. I explained the possibility of anonreportable result due to insufficient fraction or quality control microbiologist factors. Plan: CF and SMA screening, and the Roland test today with sex and X,Y aneuploidy screening.Emily will be called with results as they are available. documented in this encounter Plan of Treatment Not on file documented as of this encounter Results * Miscellaneous Lab request (02/08/2018 10:13 AM EDT) Label Request received in lab. [facility] Blood specimen (specimen) 02/08/2018 10:13 AM EDT 02/08/2018 11:06 AM EDT Narrative Resulting Agency Comment Spec In Lab E Sabina Rocha MD LAB SEND OUT KAPIL TORIBIO [facility] Organization Address City/State/ZIP Co de Phone Number [facility] [place] [address] * Ferritin (02/08/2018 10:13 AM EDT) Ferritin 49 15 - 150 ng/mL [facility] Comment: Pediatric reference ranges not verified at [facility], interpret with caution. Reference ranges for females greater than 50 years of age approach values for men, i.e., 30-400 ng/mL. Blood specimen (specimen) 02/08/2018 10:13 AM EDT 02/08/2018 10:25 AM EDT Narrative Resulting Agency Comment Spec In Lab E Sabina Rocha MD CHEMISTRY ORDERAB LES [facility] [place] [address] documented in this encounter Visit Diagnoses Diagnosis Microcytosis Other abnormality of red blood cells screening encounter Unspecified screening documented in this encounter Care Teams Campus President Relationship Specialty Start Date End Date None None PCP - General 02/02/18 10/11/19 documented as of this encounter
--- OUTSIDE RECORDS SUMMARY | 2024-07-12 12:48 | XMS_ITS | Encounter Summary ---
Author Organization [facility] [place] [address] Care Team Providers Care Pharmaceutical Physician Name Role Phone None Primary Care Provider Unavailabl e Encounter Details Date Type Department Care Team (Late st Contact Info) Description 08/25/2018 Telephone Obstetrics [place] [phone] Medhat Ortega MD [facility] [address] OBSTETRICS & [place] [address] Social History Tobacco Use Types Packs/Day Years [...] on filedocumented in this encounter Care Teams Pharmaceutical Physician Relationship Specialty Start Date End Date None None PCP - General 02/02/18 10/11/19 documented as of this encounter
--- OUTSIDE RECORDS SUMMARY | 2024-07-12 12:48 | XMS_ITS | Encounter Summary ---
Author Organization [facility] [address] Care Team Providers Care Airplane Refueler Name Role Phone None Primary Care Provider Unavailabl e Reason for Visit * Reason Comments Laboring * Auth/Cert Specialty Diagnoses / Procedures Referred By Contac t Referred To Contact Diagnoses Encounter for trial of labor Procedures EMERGENCY IPI Referral ID Status Reason Start Date Expiration Date Visits Re quested Visits Authorized [id number] 1 1 Encounter Details Date Type Department Care Team (Latest Contact Info) Description 08/27/2018 4:06 AM EDT - 08/29/2018 11:47 AM EST [place] [phone] Jacob Quintero MD [facility] OBSTETR[place] [address] Desires tubal ligation Discharge Disposition: Home Social [...] AM EST Discharge Summary [facility] Age: 32 y.o. Language: Palestinian Race: White Ethnicity: Not nor Admit date: 08/27/2018 Discharge date and time: 08/29/2018 Attending Physician: Jacob Quintero MD Discharge Physician: Shasha Davenport MD Care Provider: [facility]: Thierry Goncalves Referring Hospital: N/A Follow-up Recommendations for Providers: Interval Tubal request- needs pre-op appointment placed and request for tubal operation 6 weeks PP Inpatient Provider Contact Information: [facility] INJECTION MOLD TOOLING TECHNICIAN Department, Discharge Diagnoses (Hospital Problems) and [...] Hospital Course Including Delivery and Events [facility] is a 32 y.o. year old woman [...] for the patient's : Lesa, Carissa shell [[id number]] INFORMATION Carissa Mcfadden 08/27/2018 6:55 AM by Vaginal, Spontaneous Delivery Sex: male Gestational Age: 40w2d Measurements: Weight: 6 lb 8.6 oz (2965 g) APGARS One Minute Five Minutes Ten Minutes Totals: 7 8 EBL: 400 Vital signs at Discharge: BP: 121/79, Heart Rate: 73, Temp: 37 ??C (98.6 ??F), Resp: 18, BMI (Calculated): 42.02 Height: 161.3 cm (5' 3.5) (08/27/18 042) Weight: 109.3 kg (241 lb) (08/27/18 042) [...] daily. 1 tablet Refills: 0 vitamin with atliouwq-Nk-Xpha-FA Tab Commonly known as: VITAMIN Take 1 [...] care provider. If you were seen at [facility] you will be contacted to set up [...] Depression Contact Numbers: If you see an second rigger call: [phone] 9 am - 5 pm, after 5 pm If you see a supervisor carding call: [phone] all hours If you see a family practitioner call: [phone] all hours If you were transferred to our institution for delivery and cannot reach your local OB provider, call the second rigger numbers. Pain Control: Alternate 625 mg tylenol and 600 mg ibuprofen every 3 hours for pain control. General Instructions None Future Appointments and Orders Future Appointments and Orders Future Appointments Provider Department Dept Phone 08/29/2018 1:20 PM Zaynab Arndt CNM Obstetrics and Gynecology at [place] Arrive at: Product Manager E Commerce Area Future Orders Complete By Expires LAPAROSCOPY W\FULGURATION OF FALLOPIAN TUBES [[id number] Custom] As directed Process Instructions: Scheduling Instructions: This order is to be used for Surgeries and Procedures being performed at [facility] Main OR, OSC,CSI, Endoscopy, [facility] or [facility], the [facility] Endoscopy ASC, [facility] Endoscopy ASC and [facility] only. 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 Stop exercising if you feel pain.?? https://www.[facility].org/Patients/FAQs/Satcwtvf-Olsyf-Mtswtxcri?[email or web address]=false#ho w Nutrition: Your diet following the of [...] the OB Clinic. Call your doctor or supervisor carding for: ??? Seizure (call 911) ??? Headache [...] follow up appointment. You [facility] at any time for guidance or for answers to questions that come up prior to you follow up appointment. Your [facility] Provider can be reached during office hours at ??? Midwives ??? Obstetricians ??? Services AFTER OFFICE HOURS for the second rigger or supervisor carding precision optical goods worker Provider electronic signature confirms that discharge instructions were reviewed with the patient. A copy was printed and given to the patient. * Patient Instructions* Rosemarie Chopra MD - 08/29/2018 7:08 AM EST Patient Instructions Follow-up: Six weeks care provider. If you were seen at [facility] you will be contacted to set up [...] Depression Contact Numbers: If you see an second rigger call: [phone] 9 am - 5 pm, after 5 pm If you see a supervisor carding call: [phone] all hours If you see a family practitioner call: [phone] all hours If you were transferred to our institution for delivery and cannot reach your local OB provider, call the second rigger numbers. Pain Control: Alternate 625 mg tylenol [...] needed. 14 each 08/29/2018 05/12/2021 vitamin with qszndvxr-Qr-Lijs-FA ( VITAMIN) TabletIndications:Encou nter for supervision of [...] EST Attending Note S: I saw Emily Rodriguez AfshanvonnieCrystal on rounds and agree with Dr. Vela's [...] Obstetrical Term Admission Note Patient ID: Emily BowienoBurke is a 32 y.o. at 40w2d dated [...] 135, Variability: moderate, Accels: yes, Decels: none, [place]: q2-4 Category: I Labs: Lab Results Component [...] seen and discussed with Dr. Quintero, Attending INJECTION MOLD TOOLING TECHNICIAN. Kristin Vela MD PGY-1 06/16/2018 Associated [...] at this time. P: Home with . Valet Service Attendant/Dynamometer Tester Engine remains available as needed for coordination of care, psychosocial support and discharge planning. Kristen Marr RN Pager [phone] * Note - Ernestine Multani RN - [...] weight loss: -8% MATERNAL INFO: Emily Mcfadden [id number] 1985 G 4 P 3 Significant History: Previous experience: Yes--BF her previous Breast Surgery: No history Breast Changes During : Yes Breast Exam : Size: Large Shape: Round Venous Pattern: Within Normal Limits Milk Production: Colostral Phase Normal Nipple Exam : Everted Color: [place] Compressible: Yes Trauma: Emily denies nipple pain [...] PATIENT EDUCATION AND RECOMMENDATIONS: Benefits of frequent maternal-infant Skin to Skin (STS) contact at early feeding cues every 2 - 3 hours, awaken as needed Optimal positioning: Rtuq-go-iyddsw positioning Kolq-kb-ejuux technique Breast massage and manual expression techniques reviewed with mom Breast massage during , alternated with breast compression during pauses to keep baby engaged in feeding. Principles of baby-led feedings/finish first breast first/attempt to BF on both sides at each feed (assess interest/satiety cues) Ventral/Recumbent with infants self-attachment Strategies to manage physiological engorgement Written contact information for [facility] Services prn Pamphlets Provided Feeding Log Your Guide To --Why is Important Management of engorgement symptoms CDC recommendations for pump part cleaning and sterilization [facility] Services Card On-going Concerns: Weight loss about 8% Monitor infant growth and nutrition closely Discharge Planning: -Follow-up with infant's PCP after discharge -VNA follow-up PRN -[facility] Services post-discharge, Mother will call if she desires further assistance is aware of outpatient phone and visit support available to her. -Local IBCLC support after discharge home, prn, parents are from [facility] support area -Feeding Plan: Breast feed on demand - anticipate baby will nurse 8-12 times in 24 hours. -Keep a Feeding Log the first few weeks: record times/duration, pumping volumes, any supplement given, and infant stools/wet diapers; this journal can be helpful to review with the careprovider, VNA or mainframe consultant. -Report difficulty waking, poor nursing and/or irritability to your provider 15 minutes were spent with this family, providing assessment, assistance, education, and support. Mother voices understanding of education and recommendations. Ernestine Multani RN, IBCLC [facility] Services * Plan of Care - Nusrat [...] Present ( Vaginal Delivery) -- none Problem: (Pediatric,[place],NICU) Goal: Effective Patient will demonstrate the desired outcomes by discharge/transition of care. Outcome: Ongoing (Interventions Implemented as Appropriate) 08/28/18 1755 (Pediatric,[place],NICU) Effective making progress toward outcome * Plan [...] Pain well controlled with PO meds. Denies RSUH, visual changes or epigastric pain. See flow sheet for more info. PLAN MOVING FORWARD: Continue to offer support and education. Prepare for discharge home. INDIVIDUALIZED FALL PREVENTION: Assistance: Independent Supervision: Pt encouraged to call with questions, changes or concerns. Surveillance: Purposeful rounding Goal: Individualization & Mutuality Outcome: Ongoing (Interventions Implemented as Appropriate) 08/27/18 1026 08/27/183 08/28/18442 Individualization Patient Specific Preferences -- -- , [...] Promotion attachment promoted;positive reinforcement provided;parent-child separation minimized;rooming-in promoted;yvbj-pm-nxdh contact encouraged -- Intervention: Prevent/Manage DVT/VTE Risk [...] Problems Present ( Vaginal Delivery) none Problem: (Pediatric,[place],NICU) Goal: Identify Related Risk Factors and Signs [...] condition at the bedside. Dr. Quintero, Attending Ob-Member Service Representative, was present for the delivery with no conflicting clinical responsibilities. Kristin Vela MD PGY-1 Information for the patient's : Carissa Mcfadden [[id number]] DELIVERY SUMMARY FOR Carissa Mcfadden (please note there is a separate summary for each fetus) 08/27/2018 6:55 AM by Vaginal, Spontaneous Delivery Sex: male Gestational Age: 40w2d Labor Events labor?: No GBS colonized: positive Rupture identifier: Rupture 1 Rupture date/time: 08/27/2018 0625 Rupture type: spontaneous rupture of membranes Fluid [...] Absorbable Number of repair packets: 3 Delivery () Delivery Date: 08/27/18 Delivery Date: 6:55:00 AM [...] Subramanian RN Delivery Nurse Jacob Quintero MD Wood Craftsman Jazmin Gallo RN Delivery Assist Elizabeth Covarrubias [...] to skin initiated date/time: 08/27/2018 0655 Medications Medications Given: vitamin K, erythromycin Measurements [...] Report (08/27/2018 8:55 AM EDT) Final Diagnosis [id number] ? Location: ; [facility]; The signing pathologist has (i) examined the [...] Rei Hanson Verified: ??08/31/2018 ?Pathologist Performed at: ??-[facility] Dept. of Pathology, [place], [place] CLINICAL INFORMATION Specimen Submitted: A - Placenta Provided clinical history/diagnosis : ?? Labor, term, GBS positive status post treatment completion. SPECIMEN PROCESSING A - Labeled/Fixative: Placenta, fresh. Quantity/Size/Abdoul ght: Single, 21.0 x 18.0 x 1.8 cm, 523 g. Integrity: Intact. Shape: Ovoid. Membranes: ? - Insertion: 100 percent marginal ??. ? - Color and Clarity: [place]-red and clear. Cord: ? - Size: 2.0 [...] percent of the parenchymal volume. Sections/Processi ng: Porcelain Finish Sprayer sections in 11 cassettes as follows: ? A1: ??Membrane roll ? A2: ??Proximal and distal cord ? A3-A8: ??Full thickness parenchyma ? A9-A11: ??Parenchymal lesions ??ejr 08/31/2018 2:02 PM EST [facility] TISSUE SPECIMEN FROM PLACENTA / Unknown 08/27/2018 8:55 AM EDT 08/27/2018 8:55 AM EDT Kristin Vela MD PATHOLOGY/CYTOLOG Y ORDERABLES [facility] [place] [address] * Specimen to Pathology (08/27/2018 8:55 AM EDT) AP Specimen 08/27/2018 8:55 AM EDT 08/27/2018 8:55 AM EDT Narrative [facility] - 08/27/2018 8:55 AM EDT Specimen requisition ordered. ??Separate Pathology report to follow Jacob Quintero MD PATHOLOGY/CYTOLOGY O REBA [facility] [place] [address] * (ABNORMAL) Differential, Automated (08/27/2018 5:00 AM EDT) Neutrophil % 85.4 % [facility] Neutrophil Absolute 17.77(H) 1.70 - 6.10 x10(3)/[facility] Lymph % 10.3 % [facility] Lymphocytes Abs 2.1 0.9 - 3.2 x10(3)/[facility] Monocyte % 3.1 % [facility] Monocyte Abs 0.6 0.3 - 0.9 x10(3)/[facility] Eos % 0.0 % [facility] Eosinophils Abs 0.0 0.0 - 0.4 x10(3)/[facility] Basophil % 0.3 % [facility] Baso Absolute 0.1 0.0 - 0.1 x10(3)/[facility] Immature Gran % 0.90 % [facility] Comment: Immature granulocytes(IG's)percentage and absolute count will include metamyelocytes, myelocytes, and promyelocytes. Blood smears from CBCs yielding IG's will be scanned manually for concordance. If this scan disagrees with the automated IG or if promyelocytes are noted, a manual differential will be performed. Immature Gran Absolute 0.19(H) 0.00 - 0.04 x10(3)/ L [facility] Blood specimen (specimen) 08/27/2018 5:00 AM EDT 08/27/2018 5:30 AM EDT Narrative Resulting Agency Comment Spec In Lab Kristin Vela MD HEMATOLOGY ORDERA BLES [facility] [place] [address] * (ABNORMAL) Hemogram (08/27/2018 5:00 AM EDT) White Blood Cell 20.8(H) 4.0 - 9.5 x10(3)/mc L [facility] Red Blood Cell 4.89 4.00 - 5.21 x10(6)/mc L [facility] Hemoglobin 12.3 11.7 - 15.5 gm/dL [facility] Hematocrit 36.3 35.7 - 45.8 % [facility] Mean Cell Volume 74.2(L) 82.6 - 94.4 fL [facility] Mean Cell Hemoglobin 25.2(L) 27.1 - 32.0 pg [facility] Mean Cell Hemoglobin Concentration 33.9 31.7 - 35.0 gm/dL [facility] Platelet 305 145 - 357 x10(3)/mc L [facility] RDW Standard Deviation 38.3 37.0 - 46.0 fL [facility] RDW coefficient of variation 14.5(H) 11.5 - 14.1 % [facility] Mean Platelet Volume 8.5 7.6 - 12.9 fL [facility] NRBC% auto 0.0 % [facility] NRBC Absolute 0.000 0.000 - 0.000 x10(3)/mc L [facility] Blood specimen (specimen) 08/27/2018 5:00 AM EDT 08/27/2018 5:30 AM EDT Narrative Resulting Agency Comment Spec In Lab Kristin Vela MD HEMATOLOGY ORDERA BLES Performing Organization Address City/[facility]/ZIP Co de Phone Number [facility] [place] [address] documented in this encounter Visit Diagnoses Diagnosis [...] Prophylaxis 0518 (New Bag - Provider: Emely Subramanian RN)0548 (Due: Stopped - Provider: Emely Subramanian RN) docusate sodium (COLACE) capsule 100 mg 100 mg, Oral, 2 TIMES DAILY, First dose on 08/27/18 at 0915, Until Discontinued, Routine 1035 (Given - Provider: Monica Mancilla RN)2055 (Given - Provider: Tamie Olguin RN) 1138 (Given - Provider: Melanie Leyva, HANG)2124 (Not Given - Provider: Nusrat Ocampo RN [...] 0700 (Due)1900 (Not Given - Provider: Nusrat Ocampo, RN - Reason: Loss of access) 0700 [...] scale., Routine 1035 (Given - Provider: Monica aMncilla RN) 0327 (Given - Provider: Taime Olguin RN)1546 (Given - Provider: Fatimah Guillen RN) documented in this encounter Care Teams Airplane Refueler Relationship Specialty Start Date End Date None None PCP - General 02/02/18 10/11/19 documented as of this encounter
--- OUTSIDE RECORDS SUMMARY | 2024-07-12 12:48 | XMS_ITS | Encounter Summary ---
[place] [address] Care Team Providers Care Consulting Psychologist Name Role Phone None Primary Care Provider Unavailabl e Reason for Visit * Reason Comments Routine Visit Encounter Details Date Type Department Care Team (Late st Contact Info) Description 05/09/2018 2:00 PM EDT Routine Obstetric[place] [phone] Rosemarie Sanches MD [address] [place] [address] [place] [address] GA: 24w4d Social History Tobacco Use Types [...] an area with endemic Zika infection including [place]. The OB identification card, Glucose screening directions (if applicable) along with the Guide to [place] was given to the patient. The materials [...] frequent protein meals and snacks. Reviewed recommendation ujv08-52 lb weight gain based on prepreg BMI. F/u for weight gain at next visit ?? If fundal height exams limited by habitus, consider growth US in 3rd trimester. ?? History of x 2. First was in [place] (per patient for failed induction, 1 cm dilated). Second at [place]. Operative note for 2nd C/S in scanned [...] In Lab Sabina Danielle MD CHEMISTRY ORDERABLES [facility] [place] [address] * (ABNORMAL) Hematocrit (06/02/2018 4:00 PM EDT) Hematocrit 35.1(L) 35.7 - 45.8 % [facility] Blood specimen (specimen) 06/02/2018 4:00 PM EDT 06/02/2018 4:11 PM EDT Narrative Resulting Agency Comment Spec In Lab Sabina Danielle MD HEMATOLOGY ORDERABLE S Performing Organization Address City/[facility]/ZIP Co de Phone Number [facility] [place] [address] * Hemoglobin (06/02/2018 4:00 PM EDT) Hemoglobin 12.2 11.7 - 15.5 gm/dL [facility] Blood specimen (specimen) 06/02/2018 4:00 PM EDT 06/02/2018 4:11 PM EDT Narrative Resulting Agency Comment Spec In Lab Sabina Danielle MD HEMATOLOGY ORDERABLE S Performing Organization Address City/[facility]/ZIP Co de Phone Number [facility] [place] [address] documented in this encounter Visit Diagnoses Diagnosis Encounter for supervision of other normal in first trimester documented in this encounter Care Teams Consulting Psychologist Relationship Specialty Start Date End Date None None PCP - General 02/02/18 10/11/19 documented as of this encounter
--- OUTSIDE RECORDS SUMMARY | 2024-07-12 12:48 | XMS_ITS | Encounter Summary ---
Author Organization [facility] [place] [address] Care Team Providers Care Ecommerce Marketing Specialist Name Role Phone None Primary Care Provider Unavailabl e Encounter Details Date Type Department Care Team (Latest Contact Info) Description 08/10/2018 11:15 AM EDT - 08/10/2018 11:59 PM EDT Hospital [place] [phone] Alok Arndt, [facility] OBSTETRICS & [place] [address] Encounter for supervision of other normal in [...] every 4 hours as needed. vitamin with lzyomigo-Mx-Lrrl-FA ( VITAMIN) TabletIndications:Encoun ter for supervision of [...] 01:27 pm) PATIENT INFO: ID #: ? [id number] ?: ??[birth year] (32 yrs) Name: ? EMILY B ? Visit Date: 08/10/2018 12:33 pm ? MCKENNA- ? SAMMI PERFORMED BY: Performed By: ? Melonie Fox RDMS Attending: ?Melanie Blanchard MD Referred By: ?ALOK ARNDT Location: ? [place] SERVICE(S) PROVIDED: ??UOBFOL - Efw - Growth ??- [place] - [id number] ?[id number] INDICATIONS: ??37 weeks gestation of ?Z3A.37 ??follow [...] 08/10/2018 01:27 pm) PATIENT INFO: ID #: [id number] : [birth year] (32 yrs) Name: EMILY Rodriguez Visit Date: 08/10/2018 12:33 pm DARREL SAMMI PERFORMED BY: Performed By: Melonie Fox RDMS Attending: Melanie Blanchard MD Referred By: ALOK ARNDT Location: [place] SERVICE(S) PROVIDED: UOBFOL - Efw - Growth - [place] - [id number] INDICATIONS: 37 weeks gestation of Z3A.37 follow [...] Report 08/10/2018 01:27 pm Alok Arndt CNM IMEsther US OB ORDERABLE S documented in this encounter Visit Diagnoses Diagnosis Encounter for supervision of other normal in third trimester documented in this encounter Care Teams Ecommerce Marketing Specialist Relationship Specialty Start Date End Date None None PCP - General 02/02/18 10/11/19 documented as of this encounter
--- OUTSIDE RECORDS SUMMARY | 2024-07-12 12:48 | XMS_ITS | Encounter Summary ---
[place] [address] Care Team Providers Care Healthcare Network Consultant Name Role Phone None Primary Care Provider Unavailabl e Encounter Details Date Type Department Care Team (Latest Contact Info) Description 02/08/2018 9:50 AM EDT Laboratory Appointment Lab [address] [place] [phone] Morbid obesity with BMI of 40.0-44.9, adult; [...] AM EDT) Label Request received in lab. [facility] Blood specimen (specimen) 02/08/2018 10:13 AM EDT 02/08/2018 11:06 AM EDT Narrative Resulting Agency Comment Spec In Lab E Sabina Rocha MD LAB SEND OUT ORDE RABLES [facility] [place] [address] * Ferritin (02/08/2018 10:13 AM EDT) [facility] Ferritin 49 15 - 150 ng/mL [facility] Comment: Pediatric reference ranges not verified at [facility], interpret with caution. Reference ranges for females greater than 50 years of age approach values for men, i.e., 30-400 ng/mL. Blood specimen (specimen) 02/08/2018 10:13 AM EDT 02/08/2018 10:25 AM EDT Narrative Resulting Agency Comment Spec In Lab E Sabina Rocha MD CHEMISTRY ORDERAB LES [facility] [place] [address] * Spinal Muscular Atrophy (02/08/2018 10:13 AM EDT) [facility] Spinal Muscular Atrophy See Scan Report [facility] Comment:Test performed by OR [employer], [address] [place] [id number] Blood specimen (specimen) 02/08/2018 10:13 AM EDT 02/08/2018 2:25 PM EDT Narrative Resulting Agency Comment Spec In Lab Yael Maya MD MOLECULAR ORDERABLES [facility] [place] [address] * TSH (02/08/2018 10:13 AM EDT) Thyroid Stimulating Hormone 1.36 0.27 - 4.20 mlU/ML [facility] Blood specimen (specimen) 02/08/2018 10:13 AM EDT 02/08/2018 10:25 AM EDT Narrative Resulting Agency Comment Spec In Lab Yael Maya MD CHEMISTRY ORDERABLES Performing Organization Address [facility]/ZIP Co de Phone Number [facility] [place] [address] documented in this encounter Visit Diagnoses Diagnosis Morbid obesity with BMI of 40.0-44.9, adult Morbid obesity Encounter for supervision of other normal in first trimester Microcytosis Other abnormality of red blood cells screening encounter Unspecified screening documented in this encounter Care Teams Healthcare Network Consultant Relationship Specialty Start Date End Date None None PCP - General 02/02/18 10/11/19 documented as of this encounter
--- OUTSIDE RECORDS SUMMARY | 2024-07-12 12:48 | XMS_ITS | Encounter Summary ---
[place] [address] Care Team Providers Care Fuels Engineer Name Role Phone Tamie Her MD Primary Care Provider [phone] Reason for Visit * Reason Comments Laboring * Auth/Cert Specialty Diagnoses / Procedures Referred By Contac t Referred To Contact Diagnoses Encounter for trial of labor Procedures EMERGENCY IPI Referral ID Status Reason Start Date Expiration Date Visits Re quested Visits Authorized [id number] 1 1 Encounter Details Date Type Department Care Team (Late st Contact Info) Description 08/27/2018 [place] [id number] Katlyn Jose MD [facility] OBSTETRICS [place] [address] Not Performed @ DELIVERY (WRVU 16.13) Social [...] AM EST [facility] Age[facility] 32 y.o. Language: Mauritanian Race: White Ethnicity: Not nor Admit date: 08/27/2018 Discharge date and time: 08/29/2018 Attending Physician: Jacob Quintero MD Discharge Physician: Shasha Davenport MD Care Provider: [facility] [place]: Thierry Goncalves Referring Hospital: N/A Follow-up Recommendations for Providers: Interval Tubal request- needs pre-op appointment placed and request for tubal operation 6 weeks PP Inpatient Provider Contact Information: [facility] [place] AIR INTELLIGENCE SPECIALIST Department, Discharge Diagnoses (Hospital Problems) and Secondary [...] Hospital Course Including Delivery and Events Emily BowieSanjuana is a 32 y.o. year old woman [...] for the patient's : Lesa, Baby boy [[id number]] INFORMATION Baby sumaya Mcfadden 08/27/2018 6:55 AM [...] daily. 1 tablet Refills: 0 vitamin with ynewtwsk-Vq-Vdns-FA Tab Commonly known as: VITAMIN Take 1 [...] care provider. If you were seen at [facility] [place] you will be contacted to set up [...] Depression Contact Numbers: If you see an vendor management consultant call: [phone] 9 am - 5 pm, after 5 pm If you see a produce clerk call: [phone] all hours If you see a family practitioner call: [phone] all hours If you were transferred to our institution for delivery and cannot reach your local OB provider, call the vendor management consultant numbers. Pain Control: Alternate 625 mg tylenol and 600 mg ibuprofen every 3 hours for pain control. General Instructions None Future Appointments and Orders Future Appointments and Orders Future Appointments Provider Department Dept Phone 08/29/2018 1:20 PM Zaynab Arndt CNM Obstetrics and Gynecology at [place] Arrive at: Vacuum Drier Tender Area 5L [phone] Future Orders Complete By Expires LAPAROSCOPY W\FULGURATION OF FALLOPIAN TUBES [[id number] Custom] As directed Process Instructions: Scheduling Instructions: This order is to be used for Surgeries and Procedures being performed at [facility] Main OR, OSC,CSI, Endoscopy, [facility] or [facility], the [facility], [facility] and [facility] only. For Surgeries and Procedures being [...] exercised vigorously before or you are a belt lacer, you can work up to vigorous-intensity activity. Stop exercising if you feel pain.?? https://www.[facility].org/Patients/FAQs/Cwtrvvmm-[email or web address]-Fduczwfgj?[email or web address]=false#ho w Nutrition: Your diet following the of [...] the OB Clinic. Call your doctor or produce clerk for: ??? Seizure (call 911) ??? Headache [...] appointment. [facility] at any time for guidance or for answers to questions that come up prior to you follow up appointment. Your [facility] [place] [place] Provider can be reached during office hours at ??? Midwives ??? Obstetricians ??? Services AFTER OFFICE HOURS for the vendor management consultant or produce clerk continuity writer Provider electronic signature confirms that discharge instructions were reviewed with the patient. A copy was printed and given to the patient. * Patient Instructions* Rosemarie Chopra MD - 08/29/2018 7:08 AM EST Patient Instructions Follow-up: Six weeks care provider. If you were seen at [facility] [place] you will be contacted to set up [...] Depression Contact Numbers: If you see an vendor management consultant call: [phone] 9 am - 5 pm, after 5 pm If you see a produce clerk call: [phone] all hours If you see a family practitioner call: [phone] all hours If you were transferred to our institution for delivery and cannot reach your local OB provider, call the vendor management consultant numbers. Pain Control: Alternate 625 mg tylenol [...] needed. 14 each 08/29/2018 05/12/2021 vitamin with ujrwbtaf-Rn-Lbqz-FA ( VITAMIN) TabletIndications:Encou nter for supervision of [...] Vaginal Delivery Note Patient ID: Ms. Emily MagallonCrystal is a 32 y.o. year old day [...] 135, Variability: moderate, Accels: yes, Decels: none, [place]: q2-4 Category: I Labs: Lab Results Component [...] seen and discussed with Dr. Quintero, Attending AIR INTELLIGENCE SPECIALIST. Kristin Vela MD PGY-1 06/16/2018 Associated attestation [...] at this time. P: Home with . Painter Decorator/Manager Terminal remains available as needed for coordination of care, psychosocial support and discharge planning. Kristen Marr RN Pager [phone] Extension [phone] * Note - Ernestine Multani RN - [...] weight loss: -8% MATERNAL INFO: Emily Mcfadden [id number] 1985 G 4 P 3 Significant History: Previous experience: Yes--BF her previous Breast Surgery: No history Breast Changes During : Yes Breast Exam : Size: Large Shape: Round Venous Pattern: Within Normal Limits Milk Production: Colostral Phase Normal Nipple Exam : Everted Color: Point Clear Compressible: Yes Trauma: Emily denies nipple pain [...] 3 hours, awaken as needed Optimal positioning: Xyyi-bm-fmtntp positioning Chfc-qn-cjbdr technique Breast massage and manual expression techniques reviewed with mom Breast massage during , alternated with breast compression during pauses to keep baby engaged in feeding. Principles of baby-led feedings/finish first breast first/attempt to BF on both sides at each feed (assess interest/satiety cues) Ventral/Recumbent with infants self-attachment Strategies to manage physiological engorgement Written contact information for [facility] [place] [place] Services prn Pamphlets Provided Feeding Log Your Guide To --Why is Important Management of engorgement symptoms CDC recommendations for pump part cleaning and sterilization [facility] [place] [place] Services Card On-going Concerns: Weight loss about 8% Monitor growth and nutrition closely Discharge Planning: -Follow-up with 's PCP after discharge -VNA follow-up PRN -[facility] [place] [place] Services post-discharge, Mother will call if she desires further assistance is aware of outpatient phone and visit support available to her. -Local IBCLC support after discharge home, prn, parents are from [facility] support area -Feeding Plan: Breast feed on demand - anticipate baby will nurse 8-12 times in 24 hours. -Keep a Feeding Log the first few weeks: record times/duration, pumping volumes, any supplement given, and stools/wet diapers; this journal can be helpful to review with the careprovider, VNA or contaminated land consultant. -Report difficulty waking, poor nursing and/or irritability to your provider 15 minutes were spent with this family, providing assessment, assistance, education, and support. Mother voices understanding of education and recommendations. Ernestine Multani RN, IBCLC [facility] [place] [place] Services * Plan of Care - Nusrat [...] Handling Outcome: Ongoing (Interventions Implemented as Appropriate) 08/28/18 0808/28/181927 Daily Care Interventions Self-Care Promotion independence encouraged [...] Present ( Vaginal Delivery) -- none Problem: (Pediatric,[place],NICU) Goal: Effective Patient will demonstrate the desired outcomes by discharge/transition of care. Outcome: Ongoing (Interventions Implemented as Appropriate) 08/28/18 1755 (Pediatric,[place],NICU) Effective making progress toward outcome * Plan [...] Assessment Outcome: Ongoing (Interventions Implemented as Appropriate) 08/28/18 044 Discharge Needs Assessment Concerns To Be Addressed [...] Promotion attachment promoted;positive reinforcement provided;parent-child separation minimized;rooming-in promoted;karo-si-gcjs contact encouraged -- Intervention: Prevent/Manage DVT/VTE Risk [...] Review Outcome: Ongoing (Interventions Implemented as Appropriate) 08/27/18205808/28/18 0443 Plan of Care Review Progress -- progress [...] condition at the bedside. Dr. Quintero, Attending Ob-Brine Tank Tender, was present for the delivery with no conflicting clinical responsibilities. Kristin Vela MD PGY-1 Information for the patient's : Carissa Mcfadden [[id number]] DELIVERY SUMMARY FOR Carissa Mcfadden (please note [...] onset date/time: 08/27/2018 0300 Dilation complete date/time: 08/27/2018647 Start pushing date/time: 08/27/2018647 Mother Delivery Episiotomy: None Perineal lacerations: None Periurethral laceration: right Repaired: Yes Labial laceration: bilateral Repaired: Yes Vaginal delivery est. blood loss (mL): 400 Surgical or additional est. blood loss (mL): 0 Combined est. blood loss (mL): 400 Repair suture: Synthetic Delayed Absorbable Number of repair packets: 3 Delivery ([place]) Delivery Date: 08/27/18 Delivery Date: 6:55:00 AM [...] Subramanian RN Delivery Nurse Jacob Quintero MD Aircraft Structural Repairer Malika Gallo RN Delivery Assist Elizabeth Covarrubias [...] syringe Resuscitation Comment: dried and stimulated Maternal [place] Feeding and Skin to Skin Maternal Choice for [place](s) Feeding on Admission: Skin to skin initiated date/time: 08/27/201855 [place] Medications Medications Given: vitamin K, erythromycin Measurements [...] Report (08/27/2018 8:55 AM EDT) Final Diagnosis [id number] ? Location: ; [facility]; A The signing pathologist has (i) examined the [...] Rei Hanson Verified: ??08/31/2018 ?Pathologist Performed at: ??-[facility] [place] [place] Dept. of Pathology, [place], [place] CLINICAL INFORMATION Specimen Submitted: A - Placenta Provided clinical history/diagnosis : ?? Labor, term, GBS positive status post treatment completion. SPECIMEN PROCESSING A - Labeled/Fixative: Placenta, fresh. Quantity/Size/Abdoul ght: Single, 21.0 x 18.0 x 1.8 cm, 523 g. Integrity: Intact. Shape: Ovoid. Membranes: ? - Insertion: 100 percent marginal ??. ? - Color and Clarity: Point Clear-red and clear. Cord: ? - Size: 2.0 [...] percent of the parenchymal volume. Sections/Processi ng: Lofter sections in 11 cassettes as follows: ? A1: ??Membrane roll ? A2: ??Proximal and distal cord ? A3-A8: ??Full thickness parenchyma ? A9-A11: ??Parenchymal lesions ??ejr 08/31/2018 2:[address] [facility] TISSUE SPECIMEN FROM PLACENTA / Unknown 08/27/2018 8:55 AM EDT 08/27/2018 8:55 AM EDT Kristin Vela MD PATHOLOGY/CYTOLOG Y ORDERABLES [facility] [place] [address] * Specimen to Pathology (08/27/2018 8:55 AM EDT) AP Specimen 08/27/2018 8:55 AM EDT 08/27/2018 8:[address] [facility] - 08/27/2018 8:55 AM EDT Specimen requisition ordered. ??Separate Pathology report to follow Jacob Quintero MD PATHOLOGY/CYTOLOGY [place] [address] [facility] [place] [address] * (ABNORMAL) Differential, Automated (08/27/2018 5:00 AM EDT) Neutrophil % 85.4 % [facility] Neutrophil Absolute 17.77(H) 1.70 - 6.10 x10(3)/[facility] Lymph % 10.3 % [facility] Lymphocytes Abs 2.1 0.9 - 3.2 x10(3)/[facility] Monocyte % 3.1 % [facility] Monocyte Abs 0.6 0.3 - 0.9 x10(3)/[facility] Eos % 0.0 % [facility] Eosinophils Abs 0.0 0.0 - 0.4 x10(3)/[facility] Basophil % 0.3 % [facility] Baso Absolute 0.1 0.0 - 0.1 x10(3)/[facility] Immature Gran % 0.90 % [facility] Comment: Immature granulocytes(IG's)percentage and absolute count will include metamyelocytes, myelocytes, and promyelocytes. Blood smears from CBCs yielding IG's will be scanned manually for concordance. If this scan disagrees with the automated IG or if promyelocytes are noted, a manual differential will be performed. Immature Gran Absolute 0.19(H) 0.00 - 0.04 x10(3)/ L [facility] Blood specimen (specimen) 08/27/2018 5:00 AM EDT 08/27/2018 5:30 AM EDT Narrative Resulting Agency Comment Spec In Lab Kristin Vela MD HEMATOLOGY ORDERA BLES [facility] [place] [address] * (ABNORMAL) Hemogram (08/27/2018 5:00 AM EDT) White Blood Cell 20.8(H) 4.0 - 9.5 x10(3)/mc L [facility] Red Blood Cell 4.89 4.00 - 5.21 x10(6)/mc L [facility] Hemoglobin 12.3 11.7 - 15.5 gm/dL [facility] Hematocrit 36.3 35.7 - 45.8 % [facility] Mean Cell Volume 74.2(L) 82.6 - 94.[address] [facility] Mean Cell Hemoglobin 25.2(L) 27.1 - 32.[address] [facility] Mean Cell Hemoglobin Concentration 33.9 31.7 - 35.0 gm/dL [facility] Platelet 305 145 - 357 x10(3)/mc L [facility] RDW Standard Deviation 38.3 37.0 - 46.[address] [facility] RDW coefficient of variation 14.5(H) 11.5 - 14.1 % [facility] Mean Platelet Volume 8.5 7.6 - 12.[address] [facility] NRBC% auto 0.0 % [facility] NRBC Absolute 0.000 0.000 - 0.000 x10(3)/mc L [facility] Blood specimen (specimen) 08/27/2018 5:00 AM EDT 08/27/2018 5:30 AM EDT Narrative Resulting Agency Comment Spec In Lab Kristin Vela MD HEMATOLOGY ORDERA BLES [facility] [place] [address] documented in this encounter Visit Diagnoses Not [...] on 08/27/18 at 0915, Until Discontinued, Routine 1034 (Given - Provider: Monica Mancilla RN)2055 (Given - Provider: Tamie Olguin RN) 1138 (Given - Provider: Melanie Leyva, HANG)2125 (Not Given - Provider: Nusrat Ocampo, HANG - Reason: Patient/family refused) 0900 (Due) fentaNYL [...] Routine 0657 (New Bag - Provider: Monica Mancilla, RN - Comment: Started post by Domitila Subramanian RN) sodium chloride 0.9 % flush 5 mL 5 mL, Intravenous, EVERY 12 HOURS, First dose on 08/27/18 at 0700, Until Discontinued, Routine 0700 (Due)1900 (Due) 0700 (Due)1900 (Not Given - Provider: Nusrat Ocampo, HANG - Reason: Loss of access) 0700 (Due) [...] 1347 2132 (Given - Provider: Nusrat Ocampo, HANG) ibuprofen (ADVIL;MOTRIN) tablet 600 mg 600 mg, [...] RN) documented in this encounter Care Teams Fuels Engineer Relationship Specialty Start Date End Date Tamie Her MD [address] [place] [address] PCP - General Family Medicine 06/20/24 documented as of this encounter
--- OUTSIDE RECORDS SUMMARY | 2024-07-12 12:48 | XMS_ITS | Encounter Summary ---
Author Organization [facility] [address] Care Team Providers Care Disc Pad Plate Filler Name Role Phone None Primary Care Provider Unavailabl e Encounter Details Date Type Department Care Team (Late st Contact Info) Description 07/16/2011 Orders Only Radiology and Cardiology Results [address] [place] [address] Apd Conversion, Results Provider, Social [...] on filedocumented in this encounter Care Teams Disc Pad Plate Filler Relationship Specialty Start Date End Date None None PCP - General 02/02/18 10/11/19 documented as of this encounter
--- OUTSIDE RECORDS SUMMARY | 2024-07-12 12:48 | XMS_ITS | Encounter Summary ---
Author Organization [facility] [place] [address] Care Team Providers Care Head Swamper Name Role Phone None Primary Care Provider Unavailabl e Reason for Visit * Reason Comments Routine Visit Encounter Details Date Type Department Care Team (Late st Contact Info) Description 07/25/2018 3:40 PM EDT Routine Obstetrics [place] [address] Zaynab Arndt, [facility] [address] OBSTETRICS & [place] [address] GA: 35w4d Social History Tobacco Use Types [...] an area with endemic Zika infection including [place]. The patient was given two booklets; Going Home with Your and Anesthesia Guidelines. A Laborinstructions term pamphlet, Group B Streptococcus Informational Sheet, and Circumcision Letter (if applicable) was also given. The patient received additional pamphlets entitled Position and Tips for Successful and [facility] Services. The importance of the materials was [...] 01:27 pm) PATIENT INFO: ID #: ? [id number] ?: ??[birth year] (32 yrs) Name: ? ANIYAH Rodriguez ? Visit Date: 08/10/2018 12:33 pm ? SYEDAITANTONIETTA- ? SAMMI PERFORMED BY: Performed By: ? Melonie Fox RDMS Attending: ?Melanie Blanchard MD Referred By: ?ZAYNAB ARNDT Location: ? [place] SERVICE(S) PROVIDED: ??UOBFOL - Efw - Growth ??- [place] - [id number] ?[id number] INDICATIONS: ??37 weeks gestation of ?Z3A.37 ??follow [...] 37w 6d ?Date: ??11/18/17 ? BRIGHT: ?? 11/01/18 U/S Today: ? 36w 2d ?BRIGHT: ?? [...] 08/10/2018 01:27 pm) PATIENT INFO: ID #: [id number] : [birth year] (32 yrs) Name: ANIYAH Rodriguez Visit Date: 08/10/2018 12:33 pm DARREL CHAPA PERFORMED BY: Performed By: Melonie Fox RDMS Attending: Melanie Blanchard MD Referred By: ZAYNAB ARNDT Location: [place] SERVICE(S) PROVIDED: UOBFOL - Efw - Growth - [place] - [id number] INDICATIONS: 37 weeks gestation of Z3A.37 follow [...] (07/25/2018 5:09 PM EDT) GBS Screen Pos [facility] Pooled specimen from vaginal introitus and rectal swab (specimen) 07/25/2018 5:09 PM EDT 07/25/2018 5:09 PM EDT Comment:Penicillin Allergy?- >No Narrative Resulting Agency Comment Spec In Lab Zaynab Arndt CNM MICROBIOLOGY - GENE RAL ORDERABLES [facility] [place] [address] * (ABNORMAL) Group B Strep Culture Screen (07/25/2018 5:09 PM EDT) Group B Streptococcus Culture Beta Hemolytic Streptococci, Group B isolated(A) [facility] Organism Beta Hemolytic Streptococci, Group B(A) [facility] Pooled specimen from vaginal introitus and rectal swab (specimen) 07/25/2018 5:09 PM EDT 07/25/2018 5:09 PM EDT Comment:PENICILLIN ALLERGY?- >NO Narrative Resulting Agency Comment Spec In Lab Zaynab LUNSFORDDelgado MICROBIOLOGY - GENE RAL ORDERABLES [facility] [place] [address] documented in this encounter Visit Diagnoses Diagnosis Encounter for supervision of other normal in third trimester- Primary Encounter for supervision of other normal in third trimester documented in this encounter Care Teams Head Swamper Relationship Specialty Start Date End Date None None PCP - General 02/02/18 10/11/19 documented as of this encounter
--- OUTSIDE RECORDS SUMMARY | 2024-07-12 12:48 | XMS_ITS | Encounter Summary ---
Author Organization [facility] Address [address] [facility] [place] [address] Care Team Providers Care Melt House Centrifugal Operator Name Role Phone None Primary Care Provider Unavailabl e Encounter Details Date Type Department Care Team (Late st Contact Info) Description 06/03/2011 Interpretation Only Radiology [address] [facility] [place] [address] Unknown None Social History Tobacco Use Types [...] 1:01 PM EDT APD Historical Result Principal Metal Mold Dresser: ??ABBY ??SACHIN Su[facility] OBSTETRICAL ULTRASOUND REPORT ? -------- Pat. Name: EMILY CHAPA ?Study Date: ?? 06/03/2011 1:36pm Pat. No: ?? [id number] ?Referring MD: LIVE LMP: ? 04/07/2011 ?Steam Table Associate: ??C ??FRANK BOLIVAR GA by LMP: 08.1 weeks ?, Age: ? 1985, 25 [place] by [facility]: ? GA Selected: ??08.3 weeks (Sonographic) [...] Unknown - 04/25/2019 APD Historical Result Principal Metal Mold Dresser: ABBY De La [facility] OBSTETRICAL ULTRASOUND REPORT Pat. Name: EMILY CHAPA Study Date: 06/03/2011 1:36pm Pat. No: [id number] Referring MD: LIVE LMP: 04/07/2011 Steam Table Associate: Yanira BOLIVAR RDMS GA by LMP: 08.1 [...] on filedocumented in this encounter Care Teams Melt House Centrifugal Operator Relationship Specialty Start Date End Date None None PCP - General 02/02/18 10/11/19 documented as of this encounter
--- OUTSIDE RECORDS SUMMARY | 2024-07-12 12:48 | XMS_ITS | Encounter Summary ---
Author [facility] [place] [address] Care Team Providers Care African History Professor Name Role Phone None Primary Care Provider Unavailabl e Reason for Visit * Reason Onset Date Comments Follow-up 03/08/2018 Encounter Details Date Type Department Care Team (Late st Contact Info) Description 03/08/2018 Telephone Obstetrics [place] [phone] Jaimie Burr, [facility] OBSTETRICS & [place] [address] Follow-up Social History Tobacco Use Types Packs/Day [...] Notes * Telephone Encounter - Jaimie Hernandez, [facility] - 03/08/2018 12:58 PM EDT Genetic Counseling Telephone Note: Follow up with Emily re: carrier screening. Records were received from her former nurse paralegal on [place], documenting negative CF and Fragile X screening. Results did not include any screening for conditions more common in the Taoist population. Emily recalled that she had been [...] alpha thalassemia DNA screening sent out to [place]. We discussed to what end would she have all this testing. She is inc lined not to pursue this further. Emily's biggest concern is her recent lightheadedness. She wonders if this has anything to do withher borderline low MCV. She plans to follow up at her next visit. Records will be sent to [facility]. documented in this encounter Plan of Treatment Not on file documented as of this encounter Visit Diagnoses Not on filedocumented in this encounter Care Teams African History Professor Relationship Specialty Start Date End Date None None PCP - General 02/02/18 10/11/19 documented as of this encounter
--- OUTSIDE RECORDS SUMMARY | 2024-07-12 12:48 | XMS_ITS | Encounter Summary ---
[place] [address] Care Team Providers Care Budget Officer Name Role Phone None Primary Care Provider Unavailabl e Encounter Details Date Type Department Care Team (Late st Contact Info) Description 07/01/2018 Telephone Obstetrics [place] [address] Herminia Zaidi RN Social History Tobacco Use [...] Can you order these for her to sisal picker at a local medical supply shop? She lives in [facility]. Yael Urean ----- Message ----- From: Grace Hansen Sent: [...] on filedocumented in this encounter Care Teams Budget Officer Relationship Specialty Start Date End Date None None PCP - General 02/02/18 10/11/19 documented as of this encounter
--- OUTSIDE RECORDS SUMMARY | 2024-07-12 12:48 | XMS_ITS | Encounter Summary ---
Author Organization [facility] [place] [address] Care Team Providers Care Masonry Contractor Administrator Name Role Phone None Primary Care Provider Unavailabl e Encounter Details Date Type Department Care Team (Latest Contact Info) Description 03/25/2018 1:00 PM EDT - 03/25/2018 11:59 PM EDT Hospital [place] [id number] Johnathon Maya MD [facility] OBSTET[facility] [place] [address] H/O section complicating ; Morbid obesity with [...] every 4 hours as needed. vitamin with [id number] ( VITAMIN) TabletIndications:Encoun ter for supervision of [...] 01:54 pm) PATIENT INFO: ID #: ? [id number] ?: ??[birth year] (32 yrs) Name: ? EMILY B ? Visit Date: 03/25/2018 01:43 pm ? MCKENNA- ? SAMMI PERFORMED BY: Performed By: ? Garret MARIE, ??Gianna Attending: ?Josefina FAITH, E ??Sabina Referred By: ?JOHNATHON MAYA Location: ? [facility] SERVICE(S) PROVIDED: ??[facility] - Detailed Morphology - [id number] ? [id number] INDICATIONS: ??18 weeks gestation of ?Z3A.18 ??Obesity [...] Arch: ? Visualized SVC: ? Visualized Cardiac Leonard: ?Visualized Diaphragm: ? Visualized 3 Vessel View: [...] 03/25/2018 01:54 pm) PATIENT INFO: ID #: [id number] : [birth year] (32 yrs) Name: EMILY Rodriguez Visit Date: 03/25/2018 01:43 pm DARREL CHAPA PERFORMED BY: Performed By: Gianna Combs RDMS Attending: Lazaro Rocha MD Referred By: JOHNATHON MAYA Location: [facility] SERVICE(S) PROVIDED: [facility] - Detailed Morphology - [id number] INDICATIONS: 18 weeks gestation of Z3A.18 Obesity [...] Visualized Ductal Arch: Visualized SVC: Visualized Cardiac Leonard: Visualized Diaphragm: Visualized 3 Vessel View: Visualized [...] trimester documented in this encounter Care Teams Masonry Contractor Administrator Relationship Specialty Start Date End Date None None PCP - General 02/02/18 10/11/19 documented as of this encounter
--- OUTSIDE RECORDS SUMMARY | 2024-07-12 12:48 | XMS_ITS | Encounter Summary ---
Author Organization [facility] [place] [address] Care Team Providers Care Leather Tacker Name Role Phone None Primary Care Provider Unavailabl e Reason for Visit * Reason Comments Routine Visit Ultrasound Encounter Details Date Type Department Care Team (Late st Contact Info) Description 03/25/2018 2:20 PM EDT Routine Obstetrics [place] [address] Zaynab Arndt, [facility] OBSTETRICS [facility] [place] [address] GA: 18w1d Social History Tobacco Use Types [...] area with endemic Zika infection including [place]. * Zaynab Arndt CNM - 03/25/2018 2:20 PM EDT 18w1d here with Emerson for follow up morph Detailed morph reviewed- normal growth, anterior placenta, normal fluid, unilateral ENGINE HOSTLER noted Reviewed low risk [place] screening and benign nature of ENGINE HOSTLER with this information Reassurance provided Having some [...] trimester documented in this encounter Care Teams Leather Tacker Relationship Specialty Start Date End Date None None PCP - General 02/02/18 10/11/19 documented as of this encounter
--- OUTSIDE RECORDS SUMMARY | 2024-07-12 12:48 | XMS_ITS | Encounter Summary ---
[place] [address] Care Team Providers Care Bonding Machine Tender Name Role Phone Oscar Garduno MD Primary Care Provider [phone] Reason for Referral * Consultation (Routine) - Closed Specialty Diagnoses / Procedures Referred By Contac t Referred To Contact Internal Medicine Diagnoses Adult BMI 40.0-44.9 kg/sq m Oscar Garduno MD [facility] [place] [address] [facility] [address] [place] [address] Referral ID Status Reason Start Date Expiration Date V isits Requested Visits Authorized [id number] Closed Continuity of Care 05/12/2021 05/12/2022 1 1 * Surgical (Routine) - Closed Specialty Diagnoses / Procedures Referred By Contac t Referred To Contact Orthopaedics Diagnoses Ganglion cyst LEFT HAND GANGLION CYST Oscar Garduno MD [facility] [place] [address] [facility] [address] [place] [phone] Referral ID Status Reason Start Date Expiration Date V isits Requested Visits Authorized [id number] Closed Specialty Service Requested 05/12/2021 05/12/2022 1 1 Reason for Visit * Reason Comments Hypertension states that she had some high BP readings at gyno appt on April 15. Encounter Details Date Type Department Care Team (Late st Contact Info) Description 05/12/2021 2:30 PM EDT Office [place] [address] Oscar Garduno MD [facility] [place] [address] Hypertension, unspecified type (Primary Dx); Adult BMI [...] 05/12/2021 2:30 PM EDT Subjective: HPI: Emily Rodriguez Lesa is a 35 y.o. female presenting to Internal Medicine at [facility] for establishment of care. 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 She endorses frequent migraines, no symptoms of blurry vision, palpitation, SOB. denies fever, chill, N/V, diarrhea, constipation. She also has a cyst in her left wrist, and even though it is not causing her any pain, she would like to get it removed. 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 She also has FH of HTN - f/u Basic Metabolic Panel (non-fasting); - refer to photogrammetric tech for life style modification - instructed to [...] Metabolic Panel (non-fasting) (05/12/2021 3:55 PM EDT) Glucose 84 65 - 199 mg/dL [facility] Comment:Diabetes: >=200 mg/d L plus symptoms Blood Urea Nitrogen 10 8 - 18 mg/dL [facility] Creatinine 0.76 0.70 - 1.20 mg/dL [facility] Sodium 138 135 - 145 mmol/L [facility] Potassium 3.7 3.5 - 5.0 mmol/L [facility] Comment: Please note: ??Patients with WBC >100,000 may have falsely elevated Potassium levels. ??For accurate Potassium quantification in these patients send serum separator tube (gold top) for subsequent determinations. ??Contact the Clinical Chemistry Laboratory if there are any questions. Chloride 105 98 - 107 mmol/L [facility] Carbon Dioxide 20(L) 22 - 31 mmol/L [facility] Anion Gap 13 5 - 15 mmol/L [facility] Calcium 9.5 8.5 - 10.5 mg/dL [facility] Est Glomerular Filtration Rate 101 >=60 mL/min/1. 73 m?? [facility] Comment: This patient? s estimated [...] Lab Vani Maldonado MD CHEMISTRY ORDERABL ES [facility] [place] [place] [address] * Hepatitis C Antibody (05/12/2021 3:55 PM EDT) Hepatitis C Antibody Negative Negative [facility] Blood 05/12/2021 3:55 PM EDT 05/12/2021 4:06 PM EDT Narrative Resulting Agency Comment Spec In Lab Vani Maldonado MD CHEMISTRY ORDERABL ES [facility] [place] [place] [address] * Hemoglobin A1c (05/12/2021 3:55 PM EDT) Pathologist [facility] Hemoglobin A1c 4.9 4.3 - 5.6 % [facility] Comment: Reference Range: 4.3 - [...] Mellitus, Diabetes Care 2013; 36: Suppl. 1, S67-74 Estimated Average Glucose 95 mg/dL [facility] Comment: eAG equivalents for HbA1c percentages: HbA1c(%) ?eAG(mg/dL) 6.0 ?126 6.5 ?140 7.0 ?154 7.5 ?169 8.0 ?183 8.5 ?197 9.0 ?212 9.5 ?226 10.0 ? 240 Limitations: The eAG calculation has not been validated on women, individuals below 18 years old and above 70 years old, and individuals with hemoglobinopathies. Additional resources are available on the ADA website. King OTDD, Amina J, Devon R, et al. ??Translating the A1C assay into estimated average glucose values. ??Diabetes Care 2008:31(8):9453-3178. Blood 05/12/2021 3:55 PM EDT 05/12/2021 4:06 PM EDT Narrative Resulting Agency Comment Spec In Lab Vani Maldonado MD CHEMISTRY ORDERABL ES [facility] [place] [address] * Lipid Panel (Reflex Direct LDL) (05/12/2021 3:55 PM EDT) Cholesterol, Total 229 mg/dL [facility] Comment: Lower Risk: <200 mg/dL Average Risk: 200-239 mg/dL Higher Risk: >wv=358 mg/dL Triglyceride 134 mg/dL [facility] Comment: Average Risk/Lower Risk: <150 mg/dL Borderline High Risk: 150-199 mg/dL High Risk: 200-499 mg/dL Very High Risk: >xn=571 mg/dL HDL Cholesterol 43 mg/dL [facility] Comment: Males: ?? Higher Risk: <40 mg/dL Females: ?? Higher Risk: <50 mg/dL LDL Cholesterol 159 mg/dL [facility] Comment: Lowest Risk: <100 mg/dL Lower Risk: 100-129 mg/dL Borderline High Risk: 130-159 mg/dL High Risk: 160-189 mg/dL Very High Risk: >hh=035 mg/dL Cholesterol/HDL Ratio 5.3 ratio [facility] Lipid Interpretation See Note [facility] Comment: Lipid management should be guided by a patient? s ASCVD risk, goals and preferences. ACC/AHA Guidelines recommend high intensity statin if clinical ASCVD or LDL greater than or equal to 190 mg/dL. http://tinyurl.com/DWC-TYL-Mocthlgwq Adults aged 40-75 with LDL 70-189 mg/dL should have their 10 year ASCVD risk estimated with the ACC/AHA ASCVD risk cattle shipper http://tools.acc.org/ENTTA-Sryj-Lpekuxtwf/ Statin should be discussed if risk greater [...] Lab Vani Maldonado MD CHEMISTRY ORDERABL ES [facility] [place] [address] documented in this encounter Visit Diagnoses Diagnosis Hypertension, unspecified type- Primary Adult BMI 40.0-44.9 kg/sq m Body Mass Index 40.0-44.9, adult Ganglion cyst Ganglion, unspecified Healthcare maintenance Routine general medical examination at a health care facility documented in this encounter Care Teams Bonding Machine Tender Relationship Specialty Start Date End Date Oscar Garduno MD [facility] [place] [place] [address] PCP - General General Internal Medicine 05/07/2104/24 documented as of this encounter
--- OUTSIDE RECORDS SUMMARY | 2024-07-12 12:48 | XMS_ITS | Encounter Summary ---
Author Organization [facility] Address [address] [facility] [place] [address] Care Team Providers Care Algebra Teacher Name Role Phone None Primary Care Provider Unavailabl e Encounter Details Date Type Department Care Team (Late st Contact Info) Description 08/18/2011 Interpretation Only Radiology [address] [facility] [place] [address] Unknown None Social History Tobacco Use Types [...] 3:57 PM EDT APD Historical Result Principal Layout Technician: ??MARIAN ??Michael Suazo [facility] OBSTETRICAL ULTRASOUND REPORT ? -------- Pat. Name: EMILY CHAPA ?Study Date: ?? 08/18/2011 5:13pm Pat. No: ?? [id number] ?Referring MD: WILBER^BRYANT LMP: ? 04/07/2011 ?University Lecturer: ??RISHI SAENZ GA by LMP: 19.0 weeks [...] Unknown - 04/25/2019 APD Historical Result Principal Layout Technician: MARIAN Suazo [facility] OBSTETRICAL ULTRASOUND REPORT Pat. Name: EMILY CHAPA Study Date: 08/18/2011 5:13pm Pat. No: [id number] Referring MD: LIVE LMP: 04/07/2011 University Lecturer: RISHI SAENZ GA by LMP: 19.0 weeks , Age: 03 1985, 25 GA by 1st: 19.2 weeks GA [facility] GA by US: 19.5 weeks BRIGHT: [...] on filedocumented in this encounter Care Teams Algebra Teacher Relationship Specialty Start Date End Date None None PCP - General 02/02/18 10/11/19 documented as of this encounter
--- OUTSIDE RECORDS SUMMARY | 2024-07-12 12:48 | XMS_ITS | Encounter Summary ---
Author Organization [facility] [place] [address] Care Team Providers Care Special Projects Manager Name Role Phone Oscar Garduno MD Primary Care Provider [phone] Encounter Details Date Type Department Care Team (Late st Contact Info) Description 05/26/2021 Telephone [facility] at [facility] [address] [place] [address] Alana Kenny Social History Tobacco Use Types [...] 05/26/2021 3:15 PM EDT Good Afternoon, Clinical construction secretary called patient with no answer. Clinical construction secretary was unable to leave a voicemail due to mailbox being full and could not accept messages at this time. Clinical construction secretary was calling to inquire if the patient would like schedule referral to nutritional services at [facility] with Tia Crawford. Thank you, Alana documented in this encounter Plan of Treatment Not on file documented as of this encounter Visit Diagnoses Not on filedocumented in this encounter Care Teams Special Projects Manager Relationship Specialty Start Date End Date Oscar Garduno MD [facility] [place] [address] PCP - General General Internal Medicine 05/07/2104/24 documented as of this encounter
--- OUTSIDE RECORDS SUMMARY | 2024-07-12 12:48 | XMS_ITS | Encounter Summary ---
[place] [address] Care Team Providers Care Drilling Rig Operator Name Role Phone None Primary Care Provider Unavailabl e Reason for Referral * Consultation (Routine) - Closed Specialty Diagnoses / Procedures Referred By Contac t Referred To Contact Obstetrics and Gynecology Diagnoses Encounter for supervision of other normal in first trimester Johnathon Maya MD [facility] OBSTETRICS [place] [address] [facility] Technology Sales Specialist [address] [place] [address] Referral ID Status Reason Start Date Expiration Date V isits Requested Visits Authorized [id number] Closed Consult, Test & Treat 02/02/2018 02/02/2019 1 1 Reason for Visit * Reason Comments Initial Visit Encounter Details Date Type Department Care Team (Late st Contact Info) Description 02/02/2018 10:00 AM EDT Initial Obstetrics [place] [phone] Johnathon Maya MD [facility] OBSTETRICS [place] [address] Obdulia Herbert RN GA: 10w6d Social History [...] 11/18/2017, consistent with 1st trimester US at [facility], who presents for new OB visit. [...] one just a few weeks ago at [facility]. Always normal. STD's - denies OB History [...] a later visit Genetics visit scheduled for [place] discussion. SMA testing. New OB labs today. Will do early 1 hr at later date. Cant stay today. TSH ordered for BMI >40. Detailed 18 wk US for BMI >30. MFM to read F/U at 18 wks. Get US, pap and GC/CT results from [facility]. Get prior op report from [place]. We discussed early precautions, dietary recommendations, and [...] bleeding. denies heartburn. considering Centering. Would like [facility] Genetic testing(information and book given to patient). [...] in first trimester HIV SCREEN, 4TH GENERATION ([facility]/CGP/APD/NLH) Routine 02/02/2018 12:07 PM EDT Encounter for [...] 01:54 pm) PATIENT INFO: ID #: ? [id number] ?: ??[birth year] (32 yrs) Name: ? ANIYAH Rodriguez ? Visit Date: 03/25/2018 01:43 pm ? MCKENNA- ? SAMMI PERFORMED BY: Performed By: ? Garret MARIE, ??Gianna Attending: ?Lazaro Rocha MD ??Sabina Referred By: ?JOHNATHON JACOBGA Location: ? [place] SERVICE(S) PROVIDED: ??[facility] - Detailed Morphology - [id number] ? [id number] INDICATIONS: ??18 weeks gestation of ?Z3A.18 ??Obesity [...] - 18 HC/AC: ? 1.21 ?1.07 - 11.22 FL/BPD: ?70.9 ??% FL/AC: ? 22.4 ??% [...] Arch: ? Visualized SVC: ? Visualized Cardiac [place]: ?Visualized Diaphragm: ? Visualized 3 Vessel View: [...] 03/25/2018 01:54 pm) PATIENT INFO: ID #: [id number] : [birth year] (32 yrs) Name: ANIYAH Rodriguez Visit Date: 03/25/2018 01:43 pm DARREL CHAPA PERFORMED BY: Performed By: Gianna Combs RDMS Attending: Lazaro Rocha MD Referred By: JOHNATHON MAYA Location: [place] SERVICE(S) PROVIDED: [facility] - Detailed Morphology - [id number] INDICATIONS: 18 weeks gestation of Z3A.18 Obesity [...] Visualized Ductal Arch: Visualized SVC: Visualized Cardiac [place]: Visualized Diaphragm: Visualized 3 Vessel View: Visualized [...] Report 03/25/2018 01:54 pm Johnathon Maya MD [facility] OB ORDERABLES * Spinal Muscular Atrophy (02/08/2018 10:13 AM EDT) Spinal Muscular Atrophy See Scan Report [facility] Comment:Test performed by [employer] [address] [place] [id number] Blood specimen (specimen) 02/08/2018 10:13 AM EDT 02/08/2018 2:25 PM EDT Narrative Resulting Agency Comment Spec In Lab Johnathon Maya MD MOLECULAR ORDERABLES [facility] [place] [address] * TSH (02/08/2018 10:13 AM EDT) Thyroid Stimulating Hormone 1.36 0.27 - 4.20 mlU/ML [facility] Blood specimen (specimen) 02/08/2018 10:13 AM EDT 02/08/2018 10:25 AM EDT Narrative Resulting Agency Comment Spec In Lab Johnathon Maya MD CHEMISTRY ORDERABLES Performing Organization Address [facility] Co de Phone Number [facility] [place] [address] * HIV Screen, 4th Generation (02/02/2018 12:07 PM EDT) [facility] HIV Ab/Ag Screen Negative Negative [facility] Comment: This 4th Generation [...] Maya MD CHEMISTRY ORDERABLES Performing Organization Address [facility] Co de Phone Number [facility] [place] [address] * Syphilis Screening Antibody with reflex RPR (02/02/2018 12:07 PM EDT) [facility] Syphilis IgG/IgM Negative Negative [facility] Blood specimen (specimen) 02/02/2018 12:07 PM EDT 02/02/2018 12:18 PM EDT Narrative Resulting Agency Comment Spec In Lab Johnathon Maya MD CHEMISTRY ORDERABLES Performing Organization Address [facility] Co de Phone Number [facility] [place] [address] * (ABNORMAL) Differential, Automated (02/02/2018 12:07 PM EDT) [facility] Neutrophil % 65.2 % [facility] Neutrophil Absolute 8.28(H) 1.70 - 6.10 x10(3)/mc L [facility] Lymph % 27.7 % [facility] Lymphocytes Abs 3.5(H) 0.9 - 3.2 x10(3)/mc L [facility] Monocyte % 5.1 % [facility] Monocyte Abs 0.6 0.3 - 0.9 x10(3)/[facility] Eos % 1.3 % [facility] Eosinophils Abs 0.2 0.0 - 0.4 x10(3)/[facility] Basophil % 0.4 % [facility] Baso Absolute 0.0 0.0 - 0.1 x10(3)/[facility] Immature Gran % 0.30 % [facility] Comment: Immature granulocytes(IG's)percentage and absolute count will include metamyelocytes, myelocytes, and promyelocytes. Blood smears from CBCs yielding IG's will be scanned manually for concordance. If this scan disagrees with the automated IG or if promyelocytes are noted, a manual differential will be performed. Immature Gran Absolute 0.04 0.00 - 0.04 x10(3)/[facility] Blood specimen (specimen) 02/02/2018 12:07 PM EDT 02/02/2018 12:18 PM EDT Narrative Resulting Agency Comment Spec In Lab Johnathon Maya MD HEMATOLOGY ORDERABLE S [facility] [place] [address] * (ABNORMAL) Hemogram (02/02/2018 12:07 PM EDT) White Blood Cell 12.7(H) 4.0 - 9.5 x10(3)/[facility] Red Blood Cell 5.16 4.00 - 5.21 x10(6)/[facility] Hemoglobin 14.0 11.7 - 15.5 gm/dL [facility] Hematocrit 40.7 35.7 - 45.8 % [facility] Mean Cell Volume 78.9(L) 82.6 - 94.4 fL [facility] Mean Cell Hemoglobin 27.1 27.1 - 32.0 pg [facility] Mean Cell Hemoglobin Concentration 34.4 31.7 - 35.0 gm/dL [facility] Platelet 325 145 - 357 x10(3)/mc L [facility] RDW Standard Deviation 38.6 37.0 - 46.0 fL [facility] RDW coefficient of variation 13.5 11.5 - 14.1 % [facility] Mean Platelet Volume 7.8 7.6 - 12.9 fL [facility] NRBC% auto 0.0 % [facility] NRBC Absolute 0.000 0.000 - 0.000 x10(3)/mc L [facility] Blood specimen (specimen) 02/02/2018 12:07 PM EDT 02/02/2018 12:18 PM EDT Narrative Resulting Agency Comment Spec In Lab Johnathon Maya MD HEMATOLOGY ORDERABLE S Performing Organization Address City/[facility]/ZIP Co de Phone Number [facility] [place] [address] * Rubella Antibody, IgG (02/02/2018 12:07 PM EDT) Pathologist [facility] Rubella Antibody IgG Positive Positive [facility] Comment: Please note: ??A positive result for this assay indicates that antibody levels are >or= 10.0 IU/mL and is considered to be an indicator of positive immune status. Blood specimen (specimen) 02/02/2018 12:07 PM EDT 02/02/2018 12:18 PM EDT Narrative Resulting Agency Comment Spec In Lab Johnathon Maya MD CHEMISTRY ORDERABLES Performing Organization Address City/[facility]/ZIP Co de Phone Number [facility] [place] [address] * Hepatitis B Surface Antigen (02/02/2018 12:07 PM EDT) Hepatitis B Surface Antigen Negative Negative [facility] Blood specimen (specimen) 02/02/2018 12:07 PM EDT 02/02/2018 12:18 PM EDT Narrative Resulting Agency Comment Spec In Lab Johnathon Maya MD CHEMISTRY ORDERABLES Performing Organization Address City/[facility]/ZIP Co de Phone Number [facility] [place] [address] * Antibody screen (02/02/2018 12:07 PM EDT) Ab Screen Interp Negative [facility] Expires at [id number] on: 02/05/2018 [facility] Blood specimen (specimen) 02/02/2018 12:07 PM EDT 02/02/2018 12:24 PM EDT Narrative Resulting Agency Comment Spec In Lab Johnathon Maya MD BLOOD BANK LAB ORDER TACO Performing Organization Address City/[facility]/ZIP Co de Phone Number [facility] [place] [address] * ABO/Rh Typing (02/02/2018 12:07 PM EDT) ABORH Type O Pos [facility] Blood specimen (specimen) 02/02/2018 12:07 PM EDT 02/02/2018 12:24 PM EDT Narrative Resulting Agency Comment Spec In Lab Johnathon Maya MD BLOOD BANK LAB ORDER TACO Performing Organization Address City/[facility]/ZIP Co de Phone Number [facility] [place] [address] * Varicella zoster Antibody, IgG (02/02/2018 12:07 PM EDT) Varicella Zoster Antibody IgG Pos [facility] Blood specimen (specimen) 02/02/2018 12:07 PM EDT 02/02/2018 2:29 PM EDT Narrative Resulting Agency Comment Spec In Lab Johnathon Maya MD IMMUNOLOGY ORDERABLE S Performing Organization Address [facility]/ZIP Co de Phone Number [facility] [place] [address] * Cytopathology Gynecological (02/02/2018 11:04 AM EDT) AP Specimen 02/02/2018 11:0 4 AM EDT 02/02/2018 11:04 AM EDT Narrative [facility] - 02/02/2018 11:04 AM EDT Specimen requisition ordered. ??Separate Pathology report to follow Johnathon Maya MD PATHOLOGY/CYTOLOGY O RDERABLES Performing Organization Address [facility] [place] [address] * (ABNORMAL) Urine culture Clean Catch Urine (02/02/2018 11:00 AM EDT) Urine Culture 10,000-49,000 cfu/ml mixed mucosal ella Note: Culture shows multiple bacterial species suggesting mucosal contamination. If symptoms continue to indicate urinary tract infection, submit a new specimen. (A) [facility] Urine specimen obtained by clean catch procedure (specimen) 02/02/2018 11:00 AM EDT 02/02/2018 1:15 PM EDT Narrative Resulting Agency Comment Spec In Lab Johnathon Maya MD MICROBIOLOGY - GENER AL ORDERABLES Performing Organization Address [facility] [place] [address] * POCT urine (02/02/2018 10:35 AM EDT) POC Urine HCG Positive Negative - Negative POC Control Internal Controls Acceptable 02/02/2018 10:3 5 AM EDT Johnathon Maya MD POINT OF CARE TEST O RDERABLES [...] trimester documented in this encounter Care Teams Drilling Rig Operator Relationship Specialty Start Date End Date None None PCP - General 02/02/18 10/11/19 documented as of this encounter
--- OUTSIDE RECORDS SUMMARY | 2024-07-12 12:48 | XMS_ITS | Patient Health Record ---
Author Organization [facility] Address [address] [place] [address] Care Team Providers Care Underwear Welter Name Role Phone Lea FAITH, Briseida Unavailable [phone] Allergies Allergen (clinical drug ingredient) Drug/Non Drug [...] Status Risk Notes Problem Irregular menstrual cycle (61173012) Irregular menstrual cycle (626.4) Active confirmed likely due to Mirena Problem Sprain of sacroiliac region (345076082) Other specified sites of sacroiliac region sprain and strain (846.8) Active confirmed right sacroiliac pain Problem Migraine with aura (8261019) Migraine with aura, not intractable, without status migrainosus (G43.109) Active confirmed Problem Spasm (03800476) Contracture of muscle, other site (M62.48) Active confirmed right psoas, rectus, and pelvic floor myofascial pain Problem Postprocedural pelvic peritoneal adhesions (347141705) Postprocedural pelvic peritoneal adhesions (N99.4) Active confirmed s/p C/S x 2, surgery for ectopic Problem Pelvic and perineal pain (208445908) Pelvic and perineal pain (R10.2) Active confirmed chronic pelvic pain, likely primarily due to severe adhesions of uterus to anterior abdominal wall, with subsequent development of myofascial pain not improved with pelvic PT; also possible adenomyosis Problem Intrauterine contraceptive device in situ (finding) (407766779) Presence of (intrauterine) contraceptive device (Z97.5) Active confirmed [facility] Problem Late effect of medical and surgical care complication (785849348) Displacement of intrauterine contraceptive device, sequela (T83.32XS) Active confirmed Plan Of Treatment No Information Insurance Providers Payer Name Payer Address Payer Phone Subscriber Number Group Number Insured Name Patient Relationship to Insured Coverage Start Date Coverage End Date [place]ICA[place] [address] [place] [address] [id number] Emily Arzola Self - patient is the [...]
--- OUTSIDE RECORDS SUMMARY | 2024-07-12 12:48 | XMS_ITS | Encounter Summary ---
Author Organization [facility] [place] [address] Care Team Providers Care Director Sales Training Name Role Phone None Primary Care Provider Unavailabl e Reason for Visit * Reason Comments Routine Visit Encounter Details Date Type Department Care Team (Late st Contact Info) Description 08/10/2018 1:45 PM EDT Routine Obstetrics [place] [address] Yael Maya MD [facility] [address] [place] [address] GA: 37w6d Social History Tobacco Use Types [...] an area with endemic Zika infection including [place] * Yael Maya MD - 08/10/2018 1:45 [...] test documented in this encounter Care Teams Director Sales Training Relationship Specialty Start Date End Date None None PCP - General 02/02/18 10/11/19 documented as of this encounter
--- OUTSIDE RECORDS SUMMARY | 2024-07-12 12:48 | XMS_ITS | Encounter Summary ---
[place] [address] Care Team Providers Care Race Starter Name Role Phone None Primary Care Provider Unavailabl e Encounter Details Date Type Department Care Team (Late st Contact Info) Description 07/16/2011 Orders Only Radiology and Cardiology Results [address] [place] [address] Apd Conversion, Results Provider, Social [...] A1c (07/16/2011 1:49 PM EDT) Hemoglobin A1c 4.9(Refrigeration Mechanic al Lab) 4.5 - 5.7 % TANESHA CONKLIN DAY CONVERSION Hemoglobin 18.1(Exter nal Lab) g/dL TANESHA CONKLIN DAY CONVERSION 07/16/2011 1:49 PM EDT Results Provider Apd Conversion MD ADALID CAMARGO ORDERABLES TANESHA CONKLIN DAY CONVERSION documented in this encounter Visit Diagnoses Not on filedocumented in this encounter Care Teams Race Starter Relationship Specialty Start Date End Date None None PCP - General 02/02/18 10/11/19 documented as of this encounter
--- OUTSIDE RECORDS SUMMARY | 2024-07-12 12:48 | XMS_ITS | Encounter Summary ---
Author Organization [facility] [place] [address] Care Team Providers Care Drawbench Operator Helper Name Role Phone None Primary Care Provider Unavailabl e Reason for Visit * Reason Comments Routine Visit Encounter Details Date Type Department Care Team (Late st Contact Info) Description 06/02/2018 4:15 PM EDT Routine Obstetrics [place] [address] Hayder Fowler MD [facility] DR OBSTETRICS & [place] [address] GA: 28w0d Social History Tobacco Use Types [...] an area with endemic Zika infection including [place]. * Hayder Fowler MD - 06/02/2018 4:15 [...] with multiple repeat sections. Based on the [facility] calculator, her chance of successful vaginal delivery [...] applicable documented in this encounter Care Teams Drawbench Operator Helper Relationship Specialty Start Date End Date None None PCP - General 02/02/18 10/11/19 documented as of this encounter
--- OUTSIDE RECORDS SUMMARY | 2024-07-12 12:48 | XMS_ITS | Encounter Summary ---
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 Spoke with Emily Norman's because she [...] sections. She is also GBS positive. CHARAN GANNON MD PGY4 08/27/18 documented in this encounter Plan of Treatment Not on file documented as of this encounter Visit Diagnoses Not on filedocumented in this encounter Care Teams Title Camera Operator Relationship Specialty Start Date End Date None None PCP - General 02/02/18 10/11/19 documented as of this encounter
--- OUTSIDE RECORDS SUMMARY | 2024-07-12 12:48 | XMS_ITS | Encounter Summary ---
Author Organization [facility] [place] [address] Care Team Providers Care Photo Mask Processor Name Role Phone None Primary Care Provider Unavailabl e Reason for Visit * Reason Onset Date Comments Results 02/15/2018 Encounter Details Date Type Department Care Team (Late st Contact Info) Description 02/15/2018 Telephone Obstetrics [place] [id number] Jaimie Burr, [facility] OBSTETRICS & [place] [address] Results Social History Tobacco Use Types Packs/Day [...] Notes * Telephone Encounter - Jaimie Burr, [facility] - 02/15/2018 11:55 AM EDT Genetic Counseling Telephone Note Emily Mcfadden opted for cell-free DNA aneuploidy screening with the Ashby Test on February 08, 2018. I informed Emily Mcfadden of the following results by phone today: Ashby Test: Condition Result Probability Trisomy 21 Low probability Less than 1/10,000 Trisomy 18 Low probability Less than 1/10,000 Trisomy 13 Low probability Less than 1/10,000 Monosomy X Sex Chromosome Aneuploidy Panel Inconclusive Inconclusive Sex Male >99% The Ashby Test is a type of cell-free DNA screening for aneuploidy. I reminded Emily that Ashby is a screening test for a limited [...] for blood work and [facility]ed [facility]. An external order was placed for [facility] and will be mailed to Emily. documented in this encounter Plan of Treatment Not on file documented as of this encounter Visit Diagnoses Diagnosis Microcytosis Other abnormality of red blood cells documented in this encounter Care Teams Photo Mask Processor Relationship Specialty Start Date End Date None None PCP - General 02/02/18 10/11/19 documented as of this encounter
--- OUTSIDE RECORDS SUMMARY | 2024-07-12 12:48 | XMS_ITS | Encounter Summary ---
Author Organization [facility] [place] [address] Care Team Providers Care Entry Level Account Executive Name Role Phone Oscar Garduno MD Primary Care Provider [phone] Encounter Details Date Type Department Care Team (Late st Contact Info) Description 05/12/2021 External Results Internal Medicine at [facility] [address] [place] [address] Angeles Nelson, [facility] Social History Tobacco Use Types Packs/Day Years [...] 3:19 PM EDT Historical Provider EXTERNAL LAB [facility] EXTERNAL LAB documented in this encounter Visit Diagnoses Not on filedocumented in this encounter Care Teams Entry Level Account Executive Relationship Specialty Start Date End Date Oscar Garduno MD [facility] INTER[facility] [place] [address] PCP - General General Internal Medicine 05/07/2104/24 documented as of this encounter
--- OUTSIDE RECORDS SUMMARY | 2024-07-12 12:48 | XMS_ITS | Encounter Summary ---
[facility] [place] [address] Care Team Providers Care Inspector Subassembly Name Role Phone None Primary Care Provider Unavailabl e Reason for Visit * Reason Comments Rupture of Membranes * Auth/Cert Specialty Diagnoses / Procedures Referred By Contac t Referred To Contact Diagnoses Encounter for trial of labor Procedures EMERGENCY IPI Referral ID Status Reason Start Date Expiration Date Visits Re quested Visits Authorized [id number] 1 1 Encounter Details Date Type Department Care Team (Latest Contact Info) Description 08/25/2018 8:27 AM EDT - 08/25/2018 12:07 PM EDT [place] [id number] Katlyn Jose MD [facility] [place] [address] Discharge Disposition: Home Social History Tobacco Use [...] Lopes RN - 08/25/2018 12:02 PM EDT [facility] to contact OB doctor [facility] to [place] [address] to contact family doctor Following your visit to [facility] Triage TERM GESTATION Greater than 37 Weeks [...] ??? Keep your regularly scheduled doctor or consulting business developer appointment NEW MEDICATIONS: SPECIAL INSTRUCTIONS/FOLLOW-UP CARE: documented [...] needed. 14 each 08/29/2018 05/12/2021 vitamin with [id number] ( VITAMIN) TabletIndications:Robertoou nter for supervision of other normal in second trimester Take 1 tablet by mouth daily. 90 tablet 3 03/25/2018 05/12/2021 calcium-vitamin D3 600 mg calcium- 400 unit TabletIndications:Daisy nter for supervision of other normal in [...] Test, Fetus A NST Start Time: 832 (08/25/1830) HR (Beats/Min): 120 (08/25/18929) HR Variability: moderate [...] in triage for R/O SROM HPI: Called environmental field professional this am with report of gush of fluid and contractions since 399. States shehad a gush of fluid that [...] if not in labor and no cervical currency exchange specialist two hours Zaynab Arndt CNM documented in [...] (08/25/2018 11:41 AM EDT) Plat estimate Normal [facility] RBC Morphology Abnormal [facility] Microcyte 1-5 /HPF [facility] Blood specimen (specimen) 08/25/2018 11:41 AM EDT 08/25/2018 11:46 AM EDT Narrative Resulting Agency Comment Spec In Lab Zaynab Arndt CNM HEMATOLOGY ORDERABL ES [facility] [place] [address] * (ABNORMAL) Creatinine (08/25/2018 11:41 AM EDT) Creatinine 0.69(L) 0.70 - 1.20 mg/dL [facility] Est Glomerular Filtration Rate 114 >=60 mL/min/1.7 3 m?? [facility] Comment: The eGFR was calculated using the CKD-EPI equation. As with all creatinine based estimates of kidney function, eGFR values calculated with the CKD-EPI equation are not accurate in patients with acute kidney failure, extremes of body mass or the acutely ill. [email or web address] eGFR 133 >=60 mL/min/1.7 3 m?? [facility] Comment: The eGFR was calculated using the CKD-EPI equation. As with all creatinine based estimates of kidney function, eGFR values calculated with the CKD-EPI equation are not accurate in patients with acute kidney failure, extremes of body mass or the acutely ill. [email or web address] Blood specimen (specimen) 08/25/2018 11:41 AM EDT 08/25/2018 11:46 AM EDT Narrative Resulting Agency Comment Spec In Lab Zaynab Anrdt CNM CHEMISTRY ORDERABLE S [facility] [place] [address] * (ABNORMAL) Hemogram (08/25/2018 11:41 AM EDT) White Blood Cell 17.4(H) 4.0 - 9.5 x10(3)/mc L [facility] Red Blood Cell 4.87 4.00 - 5.21 x10(6)/mc L [facility] Hemoglobin 12.1 11.7 - 15.5 gm/dL [facility] Hematocrit 36.3 35.7 - 45.8 % [facility] Mean Cell Volume 74.5(L) 82.6 - 94.4 fL [facility] Mean Cell Hemoglobin 24.8(L) 27.1 - 32.0 pg [facility] Mean Cell Hemoglobin Concentration 33.3 31.7 - 35.0 gm/dL [facility] Platelet 282 145 - 357 x10(3)/mc L [facility] RDW Standard Deviation 38.6 37.0 - 46.0 fL [facility] RDW coefficient of variation 14.5(H) 11.5 - 14.1 % [facility] Mean Platelet Volume 8.4 7.6 - 12.9 fL [facility] NRBC% auto 0.0 % [facility] NRBC Absolute 0.000 0.000 - 0.000 x10(3)/mc L [facility] Blood specimen (specimen) 08/25/2018 11:41 AM EDT 08/25/2018 11:46 AM EDT Narrative Resulting Agency Comment Spec In Lab Zaynab LUNSFORD HEMATOLOGY ORDERABL ES Performing Organization Address City/[facility]/ZIP Co de Phone Number [facility] [place] [address] * Aspartate Aminotransferase (08/25/2018 11:41 AM EDT) Aspartate Aminotransferase 12 0 - 30 unit/L [facility] Blood specimen (specimen) 08/25/2018 11:41 AM EDT 08/25/2018 11:47 AM EDT Narrative Resulting Agency Comment Spec In Lab Zaynab Arndt CNM CHEMISTRY ORDERABLE S [facility] [place] [address] * (ABNORMAL) Protein/Creatinine Ratio, urine (08/25/2018 9:57 AM EDT) Creatinine, Urine 236 mg/dL [facility] Protein, Urine 31(H) 0 - 12 mg/dL [facility] Protein / Creatinine Ratio, Urine 0.1 ratio [facility] Urine specimen (specimen) 08/25/2018 9:57 AM EDT 08/25/2018 10:07 AM EDT Narrative Resulting Agency Comment Spec In Lab Zaynab Arndt CNM URINE ORDERABLES [facility] [place] [address] * POCT urine dipstick (08/25/2018 9:17 AM EDT) POC Sp [place] 1.025 1.002 - 1.030 POC pH, UA [...] incidental documented in this encounter Care Teams Inspector Subassembly Relationship Specialty Start Date End Date None None PCP - General 02/02/18 10/11/19 documented as of this encounter
[2024-07-12 13:24] VITALS: BP 136/93; PULSE 76; O2SAT 98
[2024-07-12 14:42] VITALS: TEMP 38
[2024-07-12] MEDS: Dexamethasone 10 MG/ML VIAL PO (15:18)
[2024-07-12 15:19] VITALS: RESP 20; RESP 5
[2024-07-12] MEDS: Albuterol/Ipratropium 3 ML UPD VIAL 9 ML UPD (15:19)
--- NOTE | 2024-07-12 15:39 | W.ED.GENAD ---
Discharge Plan Disposition Patient Disposition: Home Condition: Improving Discharge Details Clinical Impression: Cough Primary Care Provider: None,None ED Provider: Ac Crisostomo Home Meds and New Rx's Prescriptions: New levofloxacin 750 mg tablet 750 mg PO DAILY 5 Days Qty: 5 0RF albuterol sulfate 90 mcg/actuation HFA aerosol inhaler 2 puff inhalation Q6H PRNQty: 6.7 0RF Discharge Instructions Instructions: Cough, Adult ED Additional Instructions: Please follow-up with primary care physician. Please return to the emerged part for any worsening symptoms HPI General Date/Time Provider Initiated Documentation: 07/12/24 14:34. HPI Narrative: 38-year-old male presents with 2 weeks of cough now productive, wheezing, shortness of breath. No history of coronary disease or thromboembolic disease. Related Data Home Medications ?Medication ?Instructions ?Recorded ?Confirmed albuterol sulfate 90 mcg/actuation 2 puff inhalation Q6H PRN #6.7 07/12/24 aerosol inhaler grams levofloxacin 750 mg tablet 750 mg PO DAILY 5 days #5 tabs 07/12/24 Previous Rx's ?Medication ?Instructions ?Recorded albuterol sulfate 90 mcg/actuation 2 puff inhalation Q6H PRN #6.7 07/12/24 aerosol inhaler grams levofloxacin 750 mg tablet 750 mg PO DAILY 5 days #5 tabs 07/12/24 Allergies Allergy/AdvReac Type Severity Reaction Status Date / Time amoxicillin (From Augmentin) Allergy Other (See Unverified 07/12/24 12:30 Comment) clavulanic acid (From Allergy Other (See Unverified 07/12/24 12:30 Augmentin) Comment) General Stated Complaint: SOB JESSICA: 3 Exam Narrative Exam Narrative: Alert oriented interactive Membranes tolerate secretions Normal voice no stridor Expiratory wheeze bilaterally Normal heart sounds no murmurs rubs or gallops No peripheral edema noted Course Vital Signs Vital signs: Vital Signs Temperature 36.9 C 07/12/24 12:23 Pulse 94 H 07/12/24 12:23 Respiratory Rate 20 07/12/24 12:23 Blood Pressure 142/89 H 07/12/24 12:23 Pulse Oximetry 98 07/12/24 12:23 Temperature 38.0 C H 07/12/24 14:42 Temperature Source Temporal Artery Scan 07/12/24 14:42 Pulse 76 07/12/24 13:24 Respiratory Rate 20 07/12/24 15:19 Respiratory Effort Short of Breath, Accessory Muscle Use, Incrsd Work of Breathing 07/12/24 14:42 Respiratory Depth Normal 07/12/24 14:42 Respiratory Pattern Normal 07/12/24 14:42 Blood Pressure 136/93 H 07/12/24 13:24 Blood Pressure Mean 107 07/12/24 13:24 Blood Pressure Position Sitting 07/12/24 13:24 Pulse Oximetry 98 07/12/24 13:24 Oxygen Delivery Method Room Air 07/12/24 15:19 Oxygen Flow Rate 0 07/12/24 15:19 Pain Level 4 07/12/24 14:42 Lab/Test Results Lab/Test Results: POC- Test(urine) Negative Medical Decision Making 38-year-old female presents with sore throat and cough for the last 2 weeks now productive, low-grade fever at home, wheezing bilaterally oxygen 98% no tachypnea, no retractions, speaking full sentences tolerate secretions, noted to have low-grade temperature.-Suspicion for pneumonia versus viral respiratory illness lower suspicion for pneumothorax ACS PE or aortic pathology. Screening x-ray, trial of nebs and dexamethasone. Antipyretics close reassessment 17: 11 patient was comfortably feeling much better after nebs and steroid. Lungs clear. Start empiric levofloxacin given productive cough over 2 weeks. X-ray read as negative. Viral swab negative. Home care instructions and return precautions given Quality:SDOH Health Related Social Needs: No Data to Display PFSH All Active Problems (Updated 07/12/24 @ 17:12 by Ac Crisostomo MD) Cough (Acute) Medical History (Updated 07/12/24 @ 17:12 by Ac Crisostomo MD) Abdominal pain, chronic, right lower quadrant BMI 40.0-44.9, adult Migraines Surgical History (Updated 08/10/18 @ 14:37 by Cashback Chintai MA) jaw reconstruction (bilateral) section (01/07/12) as per pt excellent historian: 1st c/siol for post dates 2nd c/s pt advised to have repeat 2`to adhesions. section (03/24/08) as per pt excellent historian: 1st c/siol for post dates 2nd c/s pt advised to have repeat 2`to adhesions. Oophrectomy, Right (07/16/10) pt is excellent historian Family History Sister Asthma Father Essential hypertension Social History Smoking/Tobacco Use Status: Never Smoking risk assessment performed?: Yes Alcohol Intake: never Substance use type: does not use Housing: house Do you feel safe at home: Yes Do you feel safe in your relationship?: Yes
--- NOTE | 2024-07-12 15:47 | DI.RAD_ITS ---
Exam(s) XR CHEST 2V PA LATERAL EXAM: XR CHEST 2V PA LATERAL CLINICAL HISTORY: productive cough TECHNIQUE: 2D digital imaging was performed. Two views. COMPARISON: No exams were available for comparison FINDINGS: HEART: Normal size. Aorta: Not dilated. PULMONARY VASCULATURE: Normal. MEDIASTINUM: Unremarkable. LUNGS: Clear. PLEURAL SPACE: No pleural effusion or pneumothorax. BONE:Unremarkable for age. SOFT TISSUES: Unremarkable. IMPRESSION: No acute abnormality. DATA REPOSITORY: RADIATION DOSE DELIVERED:
[2024-07-12] MEDS: Acetaminophen 325 MG TAB 650 MG PO (15:59)
[2024-07-12] MEDS: levoFLOXacin 500 MG, levoFLOXacin 250 MG 750 MG PO (15:59)
[2024-07-12 16:06] VITALS: BP 135/90; PULSE 68; RESP 18; TEMP 36.4; O2SAT 97
[2024-07-12 16:49] LABS: COVID-19 PCR Negative (Negative); Influenza A PCR Negative (Negative); Influenza B PCR Negative (Negative); RSV PCR Negative (Negative)
[2024-07-12 16:50] LABS: Source Nasopharynx
[2024-07-12 17:18] VITALS: PULSE 87; RESP 20; O2SAT 98
== END 2024-07-12 17:18 | disposition home or self-care (01) ==
PROVIDERS: Emergency Provider Emergency Medicine
DX: R05.9 Cough, unspecified (principal); R07.0 Pain in throat; R06.02 Shortness of breath
CPT/HCPCS: 81025; 87637; 93005; 94640; 99283; 71046; 93010; J1100; J7620